=== PATIENT | female | born 1985 | race Hispanic/Latino ===

== ENCOUNTER 2018-09-13 08:58 | Emergency (ER) | payer SELFPAY ==
--- NOTE | 2018-09-13 10:14 | RAD REPORT ---
EXAM DESCRIPTION: RAD - Foot Left 3 View - 09/13/2018 9:59 am CLINICAL HISTORY: Left Foot pain FINDINGS: Two bony densities lie adjacent to navicular consistent with ossicles. A third bony densit y lies medial to the navicular bone. This may represent an additional ossicle. An avulsion fracture i s another consideration. Clinical correlation is needed see the patient has point tenderness in this region to confirm a fracture No dislocation
--- NOTE | 2018-09-13 10:19 | EDPHYS ---
Physician Documentation [facility] Name: Nitin Hess Age: 33 yrs Sex: Female : 1985 Arrival Date: 09/13/2018 Time: 09:03 Bed 17 Private MD: None, None ED Physician Lew Hilton HPI: 09/13 09:40 This 33 yrs old Female presents to ER via Ambulatory with complaints of Ankle kb Injury, Pain. 10:00 The patient presents with pain. The complaints affect the left foot. Context: The kb problem was sustained at home, resulted from a mis-step by the patient, Mechanism of Injury: Inversion the patient can fully bear weight, the patient is able to ambulate. Onset: The symptoms/episode began/occurred 2 week(s) ago. Modifying factors: The symptoms are alleviated by nothing, the symptoms are aggravated by weight bearing. Associated signs and symptoms: The patient has no apparent associated signs or symptoms. Severity of symptoms: At their worst the symptoms were moderate, in the emergency department the symptoms are unchanged. The patient has not experienced similar symptoms in the past. The patient has not recently seen a physician. 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 tw2 Historical: - Allergies: 09:16 No Known Allergies; tw2 - Home Meds: 09:16 None [Active]; tw2 - PMHx: 09:16 None; tw2 - PSHx: 09:16 Left upper arm sx; tw2 - Immunization history:: Adult Immunizations. - Social history:: Smoking status: . - Ebola Screening: : Patient denies travel to an Ebola-affected area in the 21 days before illness onset. ROS: 09:39 Constitutional: Negative for fever, chills, and weight loss, ENT: Negative for injury, kb pain, and discharge, Neck: Negative for injury, pain, and swelling, Cardiovascular: Negative for chest pain, palpitations, and edema, Respiratory: Negative for shortness of breath, cough, wheezing, and pleuritic chest pain, Abdomen/GI: Negative for abdominal pain, nausea, vomiting, diarrhea, and constipation, Skin: Negative for injury, rash, and discoloration, Neuro: Negative for headache, weakness, numbness, tingling, and seizure. 09:39 MS/extremity: Positive for pain. Exam: 09:39 Constitutional: This is a well developed, well nourished patient who is awake, alert, kb and in no acute distress. Head/Face: Normocephalic, atraumatic. Chest/axilla: Normal chest wall appearance and motion. Nontender with no deformity. No lesions are appreciated. Cardiovascular: Regular rate and rhythm with a normal S1 and S2. No gallops, murmurs, or rubs. Normal PMI, no JVD. No pulse deficits. Respiratory: Lungs have equal breath sounds bilaterally, clear to auscultation and percussion. No rales, rhonchi or wheezes noted. No increased work of breathing, no retractions or nasal flaring. Abdomen/GI: Soft, non-tender, with normal bowel sounds. No distension or tympany. No guarding or rebound. No evidence of tenderness throughout. Skin: Warm, dry with normal turgor. Normal color with no rashes, no lesions, and no evidence of cellulitis. Neuro: Awake and alert, GCS 15, oriented to person, place, time, and situation. Cranial nerves II-XII grossly intact. Motor strength 5/5 in all extremities. Sensory grossly intact. Cerebellar exam normal. Normal gait. 09:39 Musculoskeletal/extremity: Extremities: grossly normal except: noted in the left foot: pain, ROM: intact in all extremities, Circulation is intact in all extremities. Sensation intact. Vital Signs: 09:13 BP 127 / 75; Pulse 88; Resp 17; Temp 98.5(TE); Pulse Ox 99% on R/A; Weight 72.57 kg; tw2 Height 5 ft. 5 in. (165.10 cm); Pain 9/10; 09:13 Body Mass Index 26.63 (72.57 kg, 165.10 cm) tw2 MDM: 09:07 Patient medically screened. kb 09:40 Data reviewed: vital signs, nurses notes. Data interpreted: Pulse oximetry: on room air kb is 99 %. Interpretation: normal. 10:01 Counseling: I had a detailed discussion with the patient and/or guardian regarding: the kb historical points, exam findings, and any diagnostic results supporting the discharge/admit diagnosis, radiology results, the need for outpatient follow up, a orthopedic surgeon, to return to the emergency department if symptoms worsen or persist or if there are any questions or concerns that arise at home. 09/13 09:12 Order name: Foot Left 3 View XRAY; Complete Time: 10:17 kb 09/13 10:20 Order name: Crutches; Complete Time: 10:24 kb 09/13 10:20 Order name: Mac Wrap; Complete Time: 10:24 kb Administered Medications: No medications were administered Disposition: 11:41 Co-signature as Attending Physician, Lew Hilton MD. rn Disposition: 09/13/18 10:18 Discharged to Home. Impression: Pain in left foot. - Condition is Stable. - Discharge Instructions: Plantar Fasciitis, Foot Pain. - Prescriptions for Diclofenac Sodium 75 mg Oral Tablet, Delayed Release (E.C.) - take 1 tablet by ORAL route 2 times per day As needed; 30 tablet. - Medication Reconciliation Form, Thank You Letter, Antibiotic Education, Prescription Opioid Use, Work release form, Family Work Release form. - Follow up: Private Physician; When: 2 - 3 days; Reason: Recheck today's complaints, Continuance of care, Re-evaluation by your physician. Follow up: Emergency Department; When: As needed; Reason: Worsening of condition. Signatures: Dispatcher [employer] EDME Lucy Tristan, FUR MIXER OPERATOR-C FUR MIXER OPERATOR-Ckb Lew Hilton MD MD rn Karla Tubbs RN RN tw2 Corrections: (The following items were deleted from the chart) 10:37 10:18 09/13/2018 10:18 Discharged to Home. Impression: Pain in left foot. Condition is tw2 Stable. Forms are Medication Reconciliation Form, Thank You Letter, Antibiotic Education, Prescription Opioid Use. Follow up: Private Physician; When: 2 - 3 days; Reason: Recheck today's complaints, Continuance of care, Re-evaluation by your physician. Follow up: Emergency Department; When: As needed; Reason: Worsening of condition. kb
--- NOTE | 2018-09-13 10:19 | ER ---
Nurse's Notes [facility] Name: Nitin Hess Age: 33 yrs Sex: Female : 1985 Arrival Date: 09/13/2018 Time: 09:03 Bed 17 Private MD: None, None Diagnosis: Pain in left foot Presentation: 09/13 09:12 Presenting complaint: Patient states: about 2 weeks ago i missed a step getting into a tw2 pool and the bottom arch of my LEFT foot hurts. Transition of care: patient was not received from another setting of care. Onset of symptoms was September 13, 2018. Risk Assessment: Do you want to hurt yourself or someone else? Patient reports no desire to harm self or others. Initial Sepsis Screen: Does the patient meet any 2 criteria? No. Patient's initial sepsis screen is negative. Does the patient have a suspected source of infection? No. Patient's initial sepsis screen is negative. Care prior to arrival: None. 09:12 Method Of Arrival: Ambulatory tw2 09:12 Acuity: ANJANA 4 tw2 Triage Assessment: 09:13 General: Appears in no apparent distress. well groomed, Behavior is calm, cooperative, tw2 appropriate for age. Pain: Complains of pain in left foot. Neuro: Level of Consciousness is awake, alert, obeys commands, Oriented to person, place, time, situation. Cardiovascular: Patient's skin is warm and dry. Respiratory: Respiratory effort is even, unlabored, Respiratory pattern is regular, symmetrical. Musculoskeletal: Circulation, motion, and sensation intact. Range of motion: intact in all extremities. 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 tw2 Historical: - Allergies: 09:16 No Known Allergies; tw2 - Home Meds: 09:16 None [Active]; tw2 - PMHx: 09:16 None; tw2 - PSHx: 09:16 Left upper arm sx; tw2 - Immunization history:: Adult Immunizations. - Social history:: Smoking status: . - Ebola Screening: : Patient denies travel to an Ebola-affected area in the 21 days before illness onset. Screenin:17 Abuse screen: Denies threats or abuse. Nutritional screening: No deficits noted. tw2 Tuberculosis screening: No symptoms or risk factors identified. Fall Risk None identified. Assessment: 09:17 Reassessment: see triage assessment. tw2 09:51 Reassessment: xray at bedside at this time. tw2 10:36 Reassessment: Patient appears in no apparent distress at this time. No changes from tw2 previously documented assessment. Patient and/or family updated on plan of care and expected duration. Pain level reassessed. Patient is alert, oriented x 3, equal unlabored respirations, skin warm/dry/pink. Vital Signs: 09:13 BP 127 / 75; Pulse 88; Resp 17; Temp 98.5(TE); Pulse Ox 99% on R/A; Weight 72.57 kg; tw2 Height 5 ft. 5 in. (165.10 cm); Pain 9/10; 09:13 Body Mass Index 26.63 (72.57 kg, 165.10 cm) tw2 ED Course: 09:03 Patient arrived in ED. dp 09:05 None, None is Private Physician. dp 09:07 Lucy Tristan F[facility]-C [facility]. kb 09:07 Lew Hilton MD is Attending Physician. kb 09:09 Bed in low position. Call light in reach. Adult w/ patient. Pulse ox on. NIBP on. tw2 09:12 Karla Tubbs, RN is Primary Nurse. tw2 09:13 Triage completed. tw2 09:13 Arm band placed on. tw2 09:17 No provider procedures requiring assistance completed. Patient did not have IV access tw2 during this emergency room visit. 09:59 Foot Left 3 View XRAY In Process Unspecified. EDMS Administered Medications: No medications were administered Outcome: 10:18 Discharge ordered by . kb 10:36 Discharged to home with crutches, with significant other. tw2 10:36 Discharged to home via wheelchair. 10:36 Condition: stable 10:36 Discharge instructions given to patient, significant other, Instructed on discharge instructions, follow up and referral plans. medication usage, safety practices, Demonstrated understanding of instructions, follow-up care, medications, crutch walking, Prescriptions given X 1. 10:37 Patient left the ED. tw2 Signatures: Dispatcher [employer] EDMS Lucy Tristan FNP-C FNP-Ckb Wise, Tara, RN RN tw2 Koko Dunbar
== END 2018-09-13 10:37 | disposition home or self-care (01) ==
LOC: ER 08:58
DX: M79.672 Pain in left foot (principal); X50.1XXD Overexertion from prolonged static or awkward postures, subsequent encounter; Y93.11 Activity, swimming; Y92.9 Unspecified place or not applicable
CPT/HCPCS: 99284

== ENCOUNTER 2018-11-08 12:10 | Emergency (ER) | payer SELFPAY ==
--- NOTE | 2018-11-08 12:58 | EDPHYS ---
Physician Documentation [facility] Name: Nitin Hess Age: 33 yrs Sex: Female : 1985 Arrival Date: 11/08/2018 Time: 12:11 Bed 19 Private MD: ED Physician Lew Hilton HPI: 11/08 13:11 This 33 yrs old Female presents to ER via Ambulatory with complaints of Wrist snw Pain. 13:11 The patient or guardian reports deformity, pain, tenderness, weakness. The complaints snw affect the left wrist diffusely, right wrist diffusely. Context: resulted from an unknown cause. Onset: The symptoms/episode began/occurred 1 month(s) ago, and became persistent. Associated signs and symptoms: Pertinent positives: numbness distally, tingling distally. The patient has experienced similar episodes in the past. It is unknown whether or not the patient has recently seen a physician. 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 Historical: - Allergies: 12:28 No Known Allergies; hj - PMHx: 12:28 None; hj - PSHx: 12:28 Left upper arm sx; hj ROS: 13:09 Constitutional: Negative for fever, chills, and weight loss, Eyes: Negative for injury, snw pain, redness, and discharge, ENT: Negative for injury, pain, and discharge, Neck: Negative for injury, pain, and swelling, Cardiovascular: Negative for chest pain, palpitations, and edema, Respiratory: Negative for shortness of breath, cough, wheezing, and pleuritic chest pain, Abdomen/GI: Negative for abdominal pain, nausea, vomiting, diarrhea, and constipation, Back: Negative for injury and pain, : Negative for injury, bleeding, discharge, and swelling, Skin: Negative for injury, rash, and discoloration, Neuro: Negative for headache, weakness, numbness, tingling, and seizure. 13:09 MS/extremity: Positive for pain, tenderness, of the bilateral wrists. Exam: 13:07 Constitutional: This is a well developed, well nourished patient who is awake, alert, snw and in no acute distress. Head/Face: Normocephalic, atraumatic. Eyes: Pupils equal round and reactive to light, extra-ocular motions intact. Lids and lashes normal. Conjunctiva and sclera are non-icteric and not injected. Cornea within normal limits. Periorbital areas with no swelling, redness, or edema. ENT: Nares patent. No nasal discharge, no septal abnormalities noted. Tympanic membranes are normal and external auditory canals are clear. Oropharynx with no redness, swelling, or masses, exudates, or evidence of obstruction, uvula midline. Mucous membranes moist. Neck: Trachea midline, no thyromegaly or masses palpated, and no cervical lymphadenopathy. Supple, full range of motion without nuchal rigidity, or vertebral point tenderness. No Meningismus. Chest/axilla: Normal chest wall appearance and motion. Nontender with no deformity. No lesions are appreciated. Cardiovascular: Regular rate and rhythm with a normal S1 and S2. No gallops, murmurs, or rubs. Normal PMI, no JVD. No pulse deficits. Respiratory: Lungs have equal breath sounds bilaterally, clear to auscultation and percussion. No rales, rhonchi or wheezes noted. No increased work of breathing, no retractions or nasal flaring. Abdomen/GI: Soft, non-tender, with normal bowel sounds. No distension or tympany. No guarding or rebound. No evidence of tenderness throughout. Back: No spinal tenderness. No costovertebral tenderness. Full range of motion. Skin: Warm, dry with normal turgor. Normal color with no rashes, no lesions, and no evidence of cellulitis. MS/ Extremity: Pulses equal, no cyanosis. Neurovascular intact. Painful ROM to bilateral wrists, + Phalen's. + mobile cyst to inner lateral wrist Neuro: Awake and alert, GCS 15, oriented to person, place, time, and situation. Cranial nerves II-XII grossly intact. Motor strength 5/5 in all extremities. Sensory grossly intact. Cerebellar exam normal. Normal gait. Vital Signs: 12:28 BP 116 / 59; Pulse 73; Resp 18; Temp 98.2(O); Pulse Ox 96% on R/A; Weight 77.11 kg; hj Height 5 ft. 6 in. (167.64 cm); Pain 10/10; 12:28 Body Mass Index 27.44 (77.11 kg, 167.64 cm) MDM: 12:40 Patient medically screened. snw 13:10 Data reviewed: vital signs, nurses notes. Data interpreted: Pulse oximetry: on room air snw is 96 %. Interpretation: normal. Counseling: I had a detailed discussion with the patient and/or guardian regarding: the historical points, exam findings, and any diagnostic results supporting the discharge/admit diagnosis, the need for outpatient follow up, to return to the emergency department if symptoms worsen or persist or if there are any questions or concerns that arise at home. Special discussion: Based on the history and exam findings, there is no indication for further emergent testing or inpatient evaluation. I discussed with the patient/guardian the need to see the hand specialist for further evaluation of the symptoms. I discussed with the patient/guardian the need to see the primary care provider for further evaluation of the symptoms. 11/08 12:56 Order name: Splint - Wrist: bilateral; Complete Time: 13:08 snw Administered Medications: 13:19 Drug: TORadol 30 mg Route: IM; Site: right deltoid; em 13:22 Follow up: Response: Medication administered at discharge. em Disposition: 15:26 Co-signature as Attending Physician, Lew Hilton MD. rn Disposition: 11/08/18 12:57 Discharged to Home. Impression: Ganglion, left wrist, Carpal tunnel syndrome. - Condition is Stable. - Discharge Instructions: Carpal Tunnel Syndrome, Ganglion Cyst, RICE for Routine Care of Injuries. - Prescriptions for Diclofenac Sodium 75 mg Oral Tablet Sustained Release - take 1 tablet by ORAL route 2 times per day; 30 tablet. - Medication Reconciliation Form, Thank You Letter, Antibiotic Education, Prescription Opioid Use form. - Follow up: Private Physician; When: As needed; Reason: Recheck today's complaints, Continuance of care, Re-evaluation by your physician. Signatures: Fely Nowak, TREE TRIMMER-C TREE TRIMMER-Csnw Andrae Myers, COMMUNITY MARKETING MANAGER COMMUNITY MARKETING MANAGER em Lew Hilton MD MD rn Joaquin, Henry, RN RN Corrections: (The following items were deleted from the chart) 13:22 12:57 11/08/2018 12:57 Discharged to Home. Impression: Ganglion, left wrist; Carpal em tunnel syndrome. Condition is Stable. Forms are Medication Reconciliation Form, Thank You Letter, Antibiotic Education, Prescription Opioid Use. Follow up: Private Physician; When: As needed; Reason: Recheck today's complaints, Continuance of care, Re-evaluation by your physician. snw
--- NOTE | 2018-11-08 12:58 | ER ---
Nurse's Notes [facility] Name: Nitin Hess Age: 33 yrs Sex: Female : 1985 Arrival Date: 11/08/2018 Time: 12:11 Bed 19 Private MD: Diagnosis: Ganglion, left wrist;Carpal tunnel syndrome Presentation: 11/08 12:27 Presenting complaint: Patient states: my L wrist started hurting for a month now, hj denies trauma to the area;. Transition of care: patient was not received from another setting of care. Onset of symptoms was November 08, 2018. Risk Assessment: Do you want to hurt yourself or someone else? Patient reports no desire to harm self or others. Initial Sepsis Screen: Does the patient meet any 2 criteria? No. Patient's initial sepsis screen is negative. Does the patient have a suspected source of infection? No. Patient's initial sepsis screen is negative. Care prior to arrival: None. 12:27 Method Of Arrival: Ambulatory 12:27 Acuity: ANJANA 4 hj Historical: - Allergies: 12:28 No Known Allergies; hj - PMHx: 12:28 None; hj - PSHx: 12:28 Left upper arm sx; hj Screenin:00 Abuse screen: Denies threats or abuse. Nutritional screening: No deficits noted. em Tuberculosis screening: No symptoms or risk factors identified. Fall Risk None identified. Assessment: 13:00 General: Appears in no apparent distress. comfortable, Behavior is calm, cooperative. em Pain: Complains of pain in right wrist and left wrist Pain currently is 10 out of 10 on a pain scale. Neuro: Level of Consciousness is awake, alert, obeys commands, Oriented to person, place, time, situation. Cardiovascular: Capillary refill < 3 seconds Patient's skin is warm and dry. Respiratory: Airway is patent Respiratory effort is even, unlabored, Respiratory pattern is regular, symmetrical. Derm: Skin is intact, is healthy with good turgor, Skin is pink, warm \T\ dry. Musculoskeletal: Range of motion: limited in left wrist and right wrist Swelling absent. Vital Signs: 12:28 BP 116 / 59; Pulse 73; Resp 18; Temp 98.2(O); Pulse Ox 96% on R/A; Weight 77.11 kg; hj Height 5 ft. 6 in. (167.64 cm); Pain 10/10; 12:28 Body Mass Index 27.44 (77.11 kg, 167.64 cm) hj ED Course: 12:11 Patient arrived in ED. as 12:28 Triage completed. hj 12:28 Arm band placed on right wrist. hj 12:31 Fely Nowak [facility]-C [facility]. snw 12:32 Lew Hilton MD is Attending Physician. snw 12:34 Andrae Myers LVN is Primary Nurse. em 13:00 Patient has correct armband on for positive identification. Bed in low position. Call em light in reach. Adult w/ patient. 13:08 Velcro wrist splint applied to bilateral wrist. ms 13:20 No provider procedures requiring assistance completed. Patient did not have IV access em during this emergency room visit. Administered Medications: 13:19 Drug: TORadol 30 mg Route: IM; Site: right deltoid; em 13:22 Follow up: Response: Medication administered at discharge. em Outcome: 12:57 Discharge ordered by . snw 13:22 Discharged to home ambulatory, with family. em 13:22 Condition: good 13:22 Discharge instructions given to patient, Instructed on discharge instructions, follow up and referral plans. medication usage, Demonstrated understanding of instructions, follow-up care, medications, Prescriptions given X 1. 13:22 Patient left the ED. em Signatures: Fely Nowak FNP-C PUBLIC RELATIONS DIRECTOR-Csnw Andrae Myers LVN LVN em Maricel Barney Maria ms Joaquin, Henry RN RN hj Corrections: (The following items were deleted from the chart) 12:30 12:28 Pulse 73bpm; Resp 18bpm; Pulse Ox 96% RA; Temp 98.2F Oral; 77.11 kg; Height 5 ft. hj 6 in.; BMI: 27.4; Pain 10/10; hj
[2018-11-08] MEDS ORDERED: KETOROLAC 30 MG/ML INJ ONE (13:10)
== END 2018-11-08 13:22 | disposition home or self-care (01) ==
LOC: ER 12:10
DX: M67.432 Ganglion, left wrist (principal); M67.431 Ganglion, right wrist; G56.03 Carpal tunnel syndrome, bilateral upper limbs
CPT/HCPCS: 96372; 99283

== ENCOUNTER 2021-11-15 12:00 | Emergency (ER) | payer SELFPAY ==
[2021-11-15 12:35] LABS: Hematocrit 45.8 % (39.6-49.0); Lymphocytes % 20.7 % (15.3-44.8); MCV 82.8 fL (80-100); MPV 7.9 fL (7.6-11.3); RBC Red Blood Cell Count 5.53 M/uL (4.33-5.43)
--- NOTE | 2021-11-15 13:33 | RAD REPORT ---
EXAM DESCRIPTION: RAD - Chest Single View - 11/15/2021 1:19 pm CLINICAL HISTORY: CHEST PAIN COMPARISON: None TECHNIQUE: AP portable chest image was obtained 11/15/2021 1:19 pm . FINDINGS: Lungs are clear. Heart and vasculature are normal. No measurable pleural effusion and no p neumothorax. No acute bony abnormality seen. No acute aortic findings suspected. IMPRESSION: No acute cardiopulmonary process.
[2021-11-15] MEDS ORDERED: FUROSEMIDE 20 MG TABLET ONE (15:04)
[2021-11-15 15:44] LABS: Troponin High Sensitivity 4.7 pg/mL (<58.9)
[2021-11-15 15:45] LABS: Potassium 3.6 mmol/L (3.5-5.1)
--- NOTE | 2021-11-15 15:53 | ER ---
Nurse's Notes [facility] Name: Star Hess Age: 36 yrs Sex: Male : 1985 Arrival Date: 11/15/2021 Time: 12:03 Bed 10 Private MD: Diagnosis: Edema, unspecified;Elevated blood-pressure reading, without diagnosis of hypertension Presentation: 11/15 12:15 Chief complaint: Patient states: JENNIFER lower leg swelling X 4 days. Coronavirus screen: ld1 At this time, the client does not indicate any symptoms associated with coronavirus-19. Ebola Screen: No symptoms or risks identified at this time. Initial Sepsis Screen: Does the patient meet any 2 criteria? No. Patient's initial sepsis screen is negative. Does the patient have a suspected source of infection? No. Patient's initial sepsis screen is negative. Risk Assessment: Do you want to hurt yourself or someone else? Patient reports no desire to harm self or others. Onset of symptoms was November 15, 2021. 12:15 Method Of Arrival: Ambulatory ld1 12:15 Acuity: ANJANA 3 ld1 Triage Assessment: 12:17 General: Appears in no apparent distress. comfortable, Behavior is calm, cooperative, ld1 appropriate for age. Pain: Denies pain. EENT: No signs and/or symptoms were reported regarding the EENT system. Neuro: Level of Consciousness is awake, alert, obeys commands, Oriented to person, place, time, situation. Cardiovascular: Respiratory: Airway is patent Respiratory effort is even, unlabored. GI: Abdomen is flat, non-distended. : No signs and/or symptoms were reported regarding the genitourinary system. Derm: No signs and/or symptoms reported regarding the dermatologic system. Musculoskeletal: Swelling present in right leg and left leg. Historical: - Allergies: 12:17 No Known Allergies; ld1 - Home Meds: 12:17 Adipex-P 37.5 mg oral cap 1 cap once daily [Active]; ld1 - PMHx: 12:17 None; ld1 - PSHx: 12:17 None; ld1 - Immunization history:: Adult Immunizations up to date, Client reports receiving the 1st dose of the Covid vaccine. - Social history:: Smoking status: Reported history of juuling and/or vaping. Patient/guardian denies using alcohol. Screenin:14 Abuse screen: Denies threats or abuse. Denies injuries from another. Nutritional iw screening: No deficits noted. Tuberculosis screening: No symptoms or risk factors identified. Fall Risk None identified. Assessment: 12:31 Reassessment: EKG, IV, Labs completed in triage. ld1 Vital Signs: 12:15 BP 129 / 90; Pulse 91; Resp 18; Temp 97.4(TE); Pulse Ox 100% on R/A; Weight 88.45 kg; ld1 Height 5 ft. 6 in. (167.64 cm); Pain 0/10; 12:15 Body Mass Index 31.47 (88.45 kg, 167.64 cm) ld1 ED Course: 12:03 Patient arrived in ED. rg4 12:17 Triage completed. ld1 12:17 Arm band placed on right wrist. ld1 12:28 Inserted saline lock: 20 gauge in right antecubital area, using aseptic technique. ld1 Blood collected. 12:35 Patient has correct armband on for positive identification. iw 12:55 F[facility]-C [facility]. snw 12:55 Michael Jim MD is Attending Physician. snw 13:21 XRAY Chest (1 view) In Process Unspecified. EDMS 13:52 Chasity Orozco, RN is Primary Nurse. iw 14:40 Lab(s) recollected, by me, sent to lab. jw7 15:15 Basic Metabolic Panel Sent. kc6 15:15 Troponin HS Sent. kc6 16:14 No provider procedures requiring assistance completed. IV discontinued, intact, iw bleeding controlled, No redness/swelling at site. Pressure dressing applied. Administered Medications: 15:05 Drug: LaSIX (furosemide) 20 mg Route: PO; iw 15:50 Follow up: Response: No adverse reaction iw Medication: 16:00 VIS not applicable for this client. iw Outcome: 15:52 Discharge ordered by . snw 16:14 Discharged to home ambulatory. iw 16:14 Condition: good 16:14 Discharge instructions given to patient, family, Instructed on discharge instructions, follow up and referral plans. Demonstrated understanding of instructions, follow-up care. 16:15 Patient left the ED. iw Signatures: Dispatcher [employer] EDMS Fely Joshi FNP-C COMPUTER TRAINING SPECIALIST-CsnChasity Gross, RN RN Tiarra Lunsford rg4 Yolanda Curran RN RN ld1 Katie Burrows jw7 Sangeetha Guerrero kc6 Corrections: (The following items were deleted from the chart) 12:27 12:15 Pulse 91bpm; Resp 18bpm; Pulse Ox 100% RA; Temp 97.4F Temporal; 88.45 kg; Height ld1 5 ft. 6 in.; BMI: 31.4; Pain 0/10; ld1
--- NOTE | 2021-11-15 15:53 | EDPHYS ---
Physician Documentation [facility] Name: Star Hess Age: 36 yrs Sex: Male : 1985 Arrival Date: 11/15/2021 Time: 12:03 Bed 10 Private MD: ED Physician Michael Jim HPI: 11/15 14:24 This 36 yrs old Male presents to ER via Ambulatory with complaints of Leg snw Swelling. 14:24 bilateral lower ext edema, no loss of sensation. Onset: The symptoms/episode snw began/occurred gradually, 4 day(s) ago, and became persistent. Severity of symptoms: At their worst the symptoms were moderate this morning. The patient has not experienced similar symptoms in the past. The patient has not recently seen a physician. Pt's pronouns she/her. No hormone therapy per pt. Historical: - Allergies: 12:17 No Known Allergies; ld1 - Home Meds: 12:17 Adipex-P 37.5 mg oral cap 1 cap once daily [Active]; ld1 - PMHx: 12:17 None; ld1 - PSHx: 12:17 None; ld1 - Immunization history:: Adult Immunizations up to date, Client reports receiving the 1st dose of the Covid vaccine. - Social history:: Smoking status: Reported history of juuling and/or vaping. Patient/guardian denies using alcohol. ROS: 14:25 Constitutional: Negative for fever, chills, and weight loss, Eyes: Negative for injury, snw pain, redness, and discharge, ENT: Negative for injury, pain, and discharge, Neck: Negative for injury, pain, and swelling, Cardiovascular: Negative for chest pain, palpitations, and edema, Respiratory: Negative for shortness of breath, cough, wheezing, and pleuritic chest pain, Abdomen/GI: Negative for abdominal pain, nausea, vomiting, diarrhea, and constipation, Back: Negative for injury and pain, : Negative for injury, bleeding, discharge, and swelling, Skin: Negative for injury, rash, and discoloration, Neuro: Negative for headache, weakness, numbness, tingling, and seizure, Psych: Negative for depression, anxiety, suicide ideation, homicidal ideation, and hallucinations. 14:25 MS/extremity: Positive for edema to lower extremities. Exam: 14:26 Constitutional: This is a well developed, well nourished patient who is awake, alert, snw and in no acute distress. Head/Face: Normocephalic, atraumatic. Eyes: Pupils equal round and reactive to light, extra-ocular motions intact. Lids and lashes normal. Conjunctiva and sclera are non-icteric and not injected. Cornea within normal limits. Periorbital areas with no swelling, redness, or edema. ENT: Nares patent. No nasal discharge, no septal abnormalities noted. Tympanic membranes are normal and external auditory canals are clear. Oropharynx with no redness, swelling, or masses, exudates, or evidence of obstruction, uvula midline. Mucous membranes moist. Neck: Trachea midline, no thyromegaly or masses palpated, and no cervical lymphadenopathy. Supple, full range of motion without nuchal rigidity, or vertebral point tenderness. No Meningismus. Chest/axilla: Normal chest wall appearance and motion. Nontender with no deformity. No lesions are appreciated. Cardiovascular: Regular rate and rhythm with a normal S1 and S2. No gallops, murmurs, or rubs. Normal PMI, no JVD. No pulse deficits. Respiratory: Lungs have equal breath sounds bilaterally, clear to auscultation and percussion. No rales, rhonchi or wheezes noted. No increased work of breathing, no retractions or nasal flaring. Abdomen/GI: Soft, non-tender, with normal bowel sounds. No distension or tympany. No guarding or rebound. No evidence of tenderness throughout. Back: No spinal tenderness. No costovertebral tenderness. Full range of motion. Skin: Warm, dry with normal turgor. Normal color with no rashes, no lesions, and no evidence of cellulitis. Neuro: Awake and alert, GCS 15, oriented to person, place, time, and situation. Cranial nerves II-XII grossly intact. Motor strength 5/5 in all extremities. Sensory grossly intact. Cerebellar exam normal. Normal gait. Psych: Awake, alert, with orientation to person, place and time. Behavior, mood, and affect are within normal limits. 14:26 Musculoskeletal/extremity: Extremities: grossly normal except: noted in the bilateral lower extremities: swelling. 14:28 ECG was reviewed by the Attending Physician. snw Vital Signs: 12:15 BP 129 / 90; Pulse 91; Resp 18; Temp 97.4(TE); Pulse Ox 100% on R/A; Weight 88.45 kg; ld1 Height 5 ft. 6 in. (167.64 cm); Pain 0/10; 12:15 Body Mass Index 31.47 (88.45 kg, 167.64 cm) ld1 MDM: 13:54 Patient medically screened. snw 14:27 Data reviewed: vital signs, nurses notes. Data interpreted: Pulse oximetry: is not snw applicable for this patient encounter. on room air is 100 %. Interpretation: normal. Counseling: I had a detailed discussion with the patient and/or guardian regarding: the historical points, exam findings, and any diagnostic results supporting the discharge/admit diagnosis, the presence of at least one elevated blood pressure reading (>120/80) during this emergency department visit, the need for outpatient follow up, to return to the emergency department if symptoms worsen or persist or if there are any questions or concerns that arise at home. Special discussion: I have referred the patient to see his PCP for further evaluation of high blood pressure. Based on the history and exam findings, there is no indication for further emergent testing or inpatient evaluation. I discussed with the patient/guardian the need to see the primary care provider for further evaluation of the symptoms. ED course: repeat bp, 118/83. 11/15 12:20 Order name: Basic Metabolic Panel; Complete Time: 15:51 11/15 12:20 Order name: CBC with Diff; Complete Time: 12:58 11/15 12:20 Order name: Troponin HS; Complete Time: 15:51 11/15 12:20 Order name: XRAY Chest (1 view); Complete Time: 13:35 11/15 12:20 Order name: EKG; Complete Time: 12:23 11/15 12:20 Order name: Cardiac monitoring; Complete Time: 15:49 11/15 12:20 Order name: EKG - Nurse/Tech; Complete Time: 12:31 11/15 12:20 Order name: IV Saline Lock; Complete Time: 12:28 11/15 12:20 Order name: Labs collected and sent; Complete Time: 12:28 11/15 12:20 Order name: O2 Per Protocol; Complete Time: 12:31 11/15 12:20 Order name: O2 Sat Monitoring; Complete Time: 15:49 ld1 11/15 12:42 Order name: Labs - recollect needed: recollect green top please; Complete Time: 14:41 bd 11/15 14:58 Order name: Labs - recollect needed: recollect green top again please; Complete Time: bd 15:05 EC:28 Rate is 72 beats/min. Rhythm is regular. QRS [place] is Normal. TN interval is normal. QRS snw interval is normal. QT interval is normal. No Q waves. T waves are Normal. No ST changes noted. Clinical impression: Normal ECG. Administered Medications: 15:05 Drug: LaSIX (furosemide) 20 mg Route: PO; iw 15:50 Follow up: Response: No adverse reaction iw Disposition Summary: 11/15/21 15:52 Discharge Ordered Location: Home snw Condition: Stable snw Diagnosis - Edema, unspecified snw - Elevated blood-pressure reading, without diagnosis of hypertension snw Followup: snw - With: Private Physician - When: 2 - 3 days - Reason: Recheck today's complaints, Continuance of care, Re-evaluation by your physician Followup: snw - With: Emergency Department - When: As needed - Reason: Worsening of condition Discharge Instructions: - Discharge Summary Sheet snw - Edema snw - Hypertension, Adult snw - Heart Disease Prevention snw - How to Take Your Blood Pressure, [id number] snw - DASH Eating Plan snw - Form - Blood Pressure Record Sheet snw Forms: - Medication Reconciliation Form snw - Thank You Letter snw - Antibiotic Education snw - Prescription Opioid Use snw - Work release form Signatures: Dispatcher [employer] EDNarcisa Sierra Shelly, FNP-C UTILIZATION REVIEW RN-Csnw Chasity Orozco, RN RN iw Yolanda Curran RN RN ld1
[2021-11-15 16:56] VITALS: BP 129/90; TEMP 97.4; O2SAT 100
--- NOTE | 2021-11-16 14:33 | EKG ---
Test Date: 2021-11-15 Test Time: 12:32:46 Orthotist Prosthetist: BRANDIE MEASUREMENT RESULTS: Intervals: Rate: 72 OK: 134 QRSD: 76 QT: 366 QTc: 400 Broad [place]: P: 31 OK: 134 QRS: 8 T: 31 INTERPRETIVE STATEMENTS: Normal sinus rhythm Normal ECG No previous ECG available for comparison Electronically Signed On 11-16-21 14:31:44 CDT by Stanton Morfin
== END 2021-11-15 16:15 | disposition home or self-care (01) ==
LOC: ER 12:00 → EDSEX 12:00 → ER 16:15
DX: R60.9 Edema, unspecified (principal); R03.0 Elevated blood-pressure reading, without diagnosis of hypertension
CPT/HCPCS: 36415; 71045; 80048; 84484; 85025; 93005; 99284

== ENCOUNTER 2022-01-04 19:32 | Emergency (ER) | payer SELFPAY ==
[2022-01-04] MEDS ORDERED: ONDANSETRON 4 MG/2 ML VIAL ONE (20:28)
[2022-01-04] MEDS ORDERED: FAMOTIDINE 20 MG/2 ML VIAL IV ONE (20:29)
[2022-01-04 20:35] LABS: Absolute Lymphocytes (CBC) 1.8 K/uL (0.7-4.9); Hematocrit 45.7 % (39.6-49.0); Lymphocytes % 19.5 % (15.3-44.8); MCV 84.7 fL (80-100); MPV 8.1 fL (7.6-11.3); RBC Red Blood Cell Count 5.39 M/uL (4.33-5.43)
[2022-01-04] MEDS ORDERED: NA CHLORIDE 0.9% 1,000 ML ONE (20:38)
[2022-01-04] MEDS ORDERED: DICYCLOMINE HCL 20 MG/2 ML AMP IM ONE (20:38)
[2022-01-04 20:50] LABS: Albumin 3.6 g/dL (3.4-5.0); Bilirubin Total 0.4 mg/dL (0.2-1.0); Potassium 3.6 mmol/L (3.5-5.1)
[2022-01-04 21:34] LABS: Urine Blood Negative (Negative); Urine Glucose Negative (Negative); Urine Protein Negative (Negative); Urine Specific Gravity 1.025 (1.005-1.030); Urine pH 5.5 (5.0-7.0)
--- NOTE | 2022-01-04 21:43 | RAD REPORT ---
EXAM DESCRIPTION: CT - Abdomen Pelvis W Contrast - 01/04/2022 9:09 pm CLINICAL HISTORY: abdominal pain COMPARISON: No comparisonsNo comparisons TECHNIQUE: Biphasic, helical CT imaging of the abdomen and pelvis was performed following 100 ml non -ionic IV contrast. Oral contrast was given. All CT scans are performed using dose optimization technique as appropriate and may include automated exposure control or mA/KV adjustment according to patient size. FINDINGS: No suspicious findings in the lung bases. The liver, spleen, and pancreas show no suspicious findings. Cholecystectomy clips are present. No bi liary tree dilatation. Symmetric renal function is seen with no hydronephrosis or suspicious renal mass. No pyelonephritis o r acute parenchymal process. No bladder abnormalities. No adrenal abnormalities. Both testicles are positioned within the inguinal canals. Pronounced cremasteric reflex is possible b ut would need correlation. No stomach or small bowel abnormality. Appendix is normal. Terminal ileum is normal. There is thicken ed nodular colon wall and mucosa from cecum through the ascending colon. There does appear to be a fa tty ileocecal valve and a normal position. Intussusception of small bowel into the colon is not confi rmed. There is a minimal amount of hyperdense material within the bowel lumen believed to be ingested medication. Remainder of the colon is unremarkable. No free air, pneumatosis or free fluid. Trace amount of stranding is seen adjacent to the right-amor e colon. No mass or bulky lymphadenopathy. No suspicious bony findings. IMPRESSION: Circumferential wall thickening and mucosal nodularity in the cecum and ascending colon. Correlation is needed with any history of colitis or infectious/ inflammatory bowel history. Ileocecal valve appears to be normally positioned. Small bowel intussusception into the colon is not confirmed. The appendix is normal. Bilateral inguinal positioning of the testicles. This is concerning for bilateral undescended testicl es rather than prominent cremasteric reflex.
[2022-01-04 21:52] LABS: Urine Mucus 2+ /HPF (None Seen); Urine RBC <5 /HPF (None Seen)
[2022-01-04 21:57] LABS: Barbiturates NEGATIVE (NEGATIVE); Benzodiazepines NEGATIVE (NEGATIVE); Cocaine NEGATIVE (NEGATIVE); METHAMPHETAM POSITIVE (NEGATIVE); Methadone NEGATIVE (NEGATIVE); Opiates NEGATIVE (NEGATIVE); Phencyclidine NEGATIVE (NEGATIVE); THC Cannibis NEGATIVE (NEGATIVE)
--- NOTE | 2022-01-04 22:31 | EDPHYS ---
Physician Documentation [facility] Name: Star Hess Age: 36 yrs Sex: Male : 1985 Arrival Date: 01/04/2022 Time: 19:35 Bed 20 Private MD: ED Physician Lew Hilton HPI: 01/04 20:05 This 36 yrs old Male presents to ER via Ambulatory with complaints of cp Abdominal Pain, Diarrhea. 20:05 The patient presents with abdominal pain. cp 20:05 Onset: The symptoms/episode began/occurred 2 day(s) ago. The symptoms do not radiate. cp Associated signs and symptoms: Pertinent positives: diarrhea, nausea, Pertinent negatives: blood in stools, chest pain, constipation, dysuria, fever, testicular pain, vomiting. The symptoms are described as crampy. Severity of pain: in the emergency department the pain is unchanged despite home interventions. Historical: - Allergies: 19:39 No Known Allergies; [facility] - Home Meds: 19:39 Adipex-P 37.5 mg Oral cap 1 cap once daily [Active]; [facility] - PSHx: 19:40 gallbladder removal 2013; [facility] - Immunization history:: Adult Immunizations up to date. - Social history:: Smoking status: Reported history of juuling and/or vaping. ROS: 20:10 Constitutional: Negative for body aches, chills, fever, poor PO intake. cp 20:10 Eyes: Negative for injury, pain, redness, and discharge. cp 20:10 Cardiovascular: Negative for chest pain, edema, palpitations. cp 20:10 ENT: Negative for drainage from ear(s), ear pain, sore throat, difficulty swallowing, cp difficulty handling secretions. 20:10 Respiratory: Negative for cough, shortness of breath, wheezing. 20:10 Abdomen/GI: Positive for abdominal pain, nausea, diarrhea, abdominal cramps, Negative for vomiting, constipation, anorexia, black/tarry stool, rectal bleeding. 20:10 Back: Negative for pain at rest, pain with movement. 20:10 : Negative for urinary symptoms. 20:10 Neuro: Negative for altered mental status, dizziness, headache, syncope, weakness. 20:10 All other systems are negative. Exam: 20:15 Constitutional: The patient appears in no acute distress, alert, awake, cp non-diaphoretic, non-toxic, well developed, well nourished, uncomfortable. 20:15 Head/Face: Normocephalic, atraumatic. cp 20:15 Eyes: Periorbital structures: appear normal, Conjunctiva: normal, no exudate, no injection, Sclera: no appreciated abnormality, Lids and lashes: appear normal, bilaterally. 20:15 ENT: External ear(s): are unremarkable, Nose: is normal, Mouth: Lips: moist, Oral mucosa: pink and intact, moist, Posterior pharynx: Airway: no evidence of obstruction, patent. 20:15 Chest/axilla: Inspection: normal. 20:15 Cardiovascular: Rate: tachycardic, Rhythm: regular, Edema: is not appreciated, JVD: is not appreciated. 20:15 Respiratory: the patient does not display signs of respiratory distress, Respirations: normal, no use of accessory muscles, no retractions, labored breathing, is not present, Breath sounds: are clear throughout, no decreased breath sounds, no stridor, no wheezing. 20:15 Abdomen/GI: Inspection: abdomen appears normal, Bowel sounds: active, all quadrants, Palpation: soft, in all quadrants, mild abdominal tenderness, in the left upper quadrant, right lower quadrant and left lower quadrant, rebound tenderness, is not appreciated, involuntary guarding, is not appreciated. 20:15 Back: pain, is absent, ROM is normal. 20:15 Neuro: Orientation: to person, place \T\ time. Mentation: is normal, Motor: moves all fours, strength is normal, Sensation: is normal. Vital Signs: 19:37 BP 125 / 86; Pulse 108; Resp 16; Temp 98.6; Pulse Ox 100% ; Weight 92.08 kg; Height 5 jh5 ft. 6 in. (167.64 cm); Pain 10/10; 21:15 BP 114 / 83; Pulse 95; Resp 18; Pulse Ox 100% ; kd3 22:28 BP 108 / 73; Pulse 84; Resp 17; Pulse Ox 99% on R/A; kd3 19:37 Body Mass Index 32.76 (92.08 kg, 167.64 cm) 5 MDM: 19:44 Patient medically screened. cp 21:00 Differential diagnosis: appendicitis, bowel obstruction, gastritis, non-specific abd cp pain, pancreatitis, Pyelonephritis, Testicular Torsion, urinary tract infection, colitis. 22:30 Data reviewed: vital signs, nurses notes, lab test result(s), radiologic studies, CT cp scan. 22:30 Counseling: I had a detailed discussion with the patient and/or guardian regarding: the cp historical points, exam findings, and any diagnostic results supporting the discharge/admit diagnosis, lab results, radiology results. Response to treatment: the patient's symptoms have markedly improved after treatment. Special discussion: Based on the patient's Hx, exam, and Dx evaluation, there is no indication for emergent surgery or inpatient Tx. It is understood by the patient/guardian that if the Sx's persist or worsen they need to return immediately for re-evaluation. 22:30 ED course: Patient denies any testicular pain. 01/04 19:59 Order name: CBC with Diff; Complete Time: 22:16 01/04 19:59 Order name: CMP; Complete Time: 22:16 01/04 22:16 Interpretation: GLOB 4.4; A/G 0.8; Reviewed. 01/04 19:59 Order name: Lipase; Complete Time: 22:16 01/04 19:59 Order name: Urine Microscopic Only; Complete Time: 22:16 cp 01/04 20:32 Order name: UDS; Complete Time: 22:16 01/04 22:16 Interpretation: Normal except: METHAMPHETAMINE POSITIVE. 01/04 20:32 Order name: Magnesium; Complete Time: 22:16 01/04 20:30 Order name: CT Abd/Pelvis - IV Contrast Only; Complete Time: 22:16 01/04 21:34 Order name: Urine Dipstick-Ancillary; Complete Time: 22:16 EDMS 01/04 19:59 Order name: IV Saline Lock; Complete Time: 20:27 01/04 19:59 Order name: Labs collected and sent; Complete Time: 20:27 01/04 19:59 Order name: Urine Dipstick-Ancillary (obtain specimen); Complete Time: 21:35 cp Administered Medications: 20:32 Drug: Pepcid (famotidine) 20 mg Route: IVP; Site: right antecubital; kd3 22:41 Follow up: Response: No adverse reaction kd3 20:33 Drug: Zofran (Ondansetron) 4 mg Route: IVP; Site: right antecubital; kd3 22:41 Follow up: Response: No adverse reaction kd3 20:48 Drug: Dicyclomine 20 mg Route: IM; Site: right vastus lateralis; kd3 22:41 Follow up: Response: No adverse reaction kd3 20:48 Drug: NS 0.9% 1000 ml Route: IV; Rate: 1 bolus; Site: right antecubital; kd3 22:41 Follow up: IV Status: Completed infusion; IV Intake: 1000ml kd3 22:41 Drug: Cipro (ciprofloxacin) 500 mg Route: PO; kd3 22:41 Follow up: Response: No adverse reaction kd3 22:41 Drug: metroNIDAZOLE 500 mg Route: PO; kd3 22:41 Follow up: Response: No adverse reaction kd3 Disposition: 01/05 00:01 Co-signature as Attending Physician, Lew Hilton MD. rn Disposition Summary: 01/04/22 22:30 Discharge Ordered Location: Home cp Problem: new cp Symptoms: have improved cp Condition: Stable cp Diagnosis - Left sided colitis without complications cp - Diarrhea, unspecified cp Followup: cp - With: Yeyo Cade MD - When: 2 - 3 days - Reason: Recheck today's complaints Discharge Instructions: - Discharge Summary Sheet cp - Diarrhea, Adult cp - Colitis cp Forms: - Medication Reconciliation Form cp - Thank You Letter cp - Antibiotic Education cp - Prescription Opioid Use cp Prescriptions: - Zofran 4 mg Oral Tablet - take 1 tablet by ORAL route every 12 hours As needed; 20 tablet; Refills: 0, cp Product Selection Permitted - Cipro 500 mg Oral Tablet - take 1 tablet by ORAL route every 12 hours for 10 days; 20 tablet; Refills: 0, cp Product Selection Permitted - Metronidazole 500 mg Oral Tablet - take 1 tablet by ORAL route every 8 hours; 30 tablet; Refills: 0, Product cp Selection Permitted - dicyclomine 20 mg Oral Tablet - take 1 tablet by ORAL route 4 times per day; 30 tablet; Refills: 0, Product cp Selection Permitted Signatures: Dispatcher [employer] EDLew Montes MD MD rn Page, Corey, PA PA cp Rees, Jessica RN RN jh5 Chiquita Jean RN RN kd3 Corrections: (The following items were deleted from the chart) 01/04 20:29 19:05 This 36 yrs old Male presents to ER via Ambulatory with complaints of cp Abdominal Pain, Diarrhea. cp 22:16 22:16 Reviewed. cp cp
--- NOTE | 2022-01-04 22:31 | ER ---
Nurse's Notes [facility] Name: Star Hess Age: 36 yrs Sex: Male : 1985 Arrival Date: 01/04/2022 Time: 19:35 Bed 20 Private MD: Diagnosis: Left sided colitis without complications;Diarrhea, unspecified Presentation: 01/04 19:37 Chief complaint: Patient states: abdominal pain x2 days after eating waterburger. [facility] Coronavirus screen: Vaccine status: Patient reports receiving the 2nd dose of the covid vaccine. Client denies travel out of the [place] in the last 14 days. Ebola Screen: Patient negative for fever greater than or equal to 101.5 degrees Fahrenheit, and additional compatible Ebola Virus Disease symptoms Patient denies exposure to infectious person. Patient denies travel to an Ebola-affected area in the 21 days before illness onset. Initial Sepsis Screen: Does the patient meet any 2 criteria? No. Patient's initial sepsis screen is negative. Does the patient have a suspected source of infection? No. Patient's initial sepsis screen is negative. Risk Assessment: Do you want to hurt yourself or someone else? Patient reports no desire to harm self or others. Onset of symptoms was January 02, 2022. 19:37 Method Of Arrival: Ambulatory [facility] 19:37 Acuity: ANJANA 3 [facility] Triage Assessment: 19:39 General: Appears in no apparent distress. comfortable, obese, well groomed, well [facility] developed, Behavior is calm, cooperative, appropriate for age. Pain: Complains of pain in abdomen. GI: Reports upper abdominal pain. Historical: - Allergies: 19:39 No Known Allergies; [facility] - Home Meds: 19:39 Adipex-P 37.5 mg Oral cap 1 cap once daily [Active]; [facility] - PSHx: 19:40 gallbladder removal 2013; [facility] - Immunization history:: Adult Immunizations up to date. - Social history:: Smoking status: Reported history of juuling and/or vaping. Screenin:14 Abuse screen: Denies threats or abuse. Denies injuries from another. Nutritional kd3 screening: No deficits noted. Tuberculosis screening: No symptoms or risk factors identified. Fall Risk IV access (20 points). Assessment: 21:14 General: Appears in no apparent distress. Behavior is calm, cooperative. Pain: kd3 Complains of pain in abdomen. Neuro: Level of Consciousness is awake, alert, obeys commands, Oriented to person, place, time, situation. Cardiovascular: Patient's skin is warm and dry. Respiratory: Airway is patent Trachea midline Respiratory effort is even, unlabored, Respiratory pattern is regular, symmetrical. GI: Stools are reported to be loose, Bowel sounds present X 4 quads. Abd is soft X 4 quads Reports diarrhea. 22:27 General: Page at bedside to discuss D/C and follow up, . kd3 Vital Signs: 19:37 BP 125 / 86; Pulse 108; Resp 16; Temp 98.6; Pulse Ox 100% ; Weight 92.08 kg; Height 5 [facility] ft. 6 in. (167.64 cm); Pain 10/10; 21:15 BP 114 / 83; Pulse 95; Resp 18; Pulse Ox 100% ; kd3 22:28 BP 108 / 73; Pulse 84; Resp 17; Pulse Ox 99% on R/A; kd3 19:37 Body Mass Index 32.76 (92.08 kg, 167.64 cm) [facility] ED Course: 19:35 Patient arrived in ED. ja2 19:36 Michael Vaz PA is PHCP. cp 19:36 Lew Hilton MD is Attending Physician. cp 19:39 Triage completed. [facility] 19:39 Arm band placed on right wrist. 5 19:45 Chiquita Jean, BRISEYDA is Primary Nurse. kd3 20:27 CBC with Diff Sent. kd3 20:27 CMP Sent. kd3 20:27 Lipase Sent. kd3 21:11 CT Abd/Pelvis - IV Contrast Only In Process Unspecified. EDMS 21:14 Patient has correct armband on for positive identification. kd3 21:14 No provider procedures requiring assistance completed. Inserted saline lock: 20 gauge kd3 in right antecubital area, using aseptic technique. Blood collected. 21:35 UDS Sent. kd3 21:35 Urine Microscopic Only Sent. kd3 22:30 Yeyo Cade MD is Referral Physician. cp 22:43 IV discontinued, intact, bleeding controlled, No redness/swelling at site. Pressure kd3 dressing applied. Administered Medications: 20:32 Drug: Pepcid (famotidine) 20 mg Route: IVP; Site: right antecubital; kd3 22:41 Follow up: Response: No adverse reaction kd3 20:33 Drug: Zofran (Ondansetron) 4 mg Route: IVP; Site: right antecubital; kd3 22:41 Follow up: Response: No adverse reaction kd3 20:48 Drug: Dicyclomine 20 mg Route: IM; Site: right vastus lateralis; kd3 22:41 Follow up: Response: No adverse reaction kd3 20:48 Drug: NS 0.9% 1000 ml Route: IV; Rate: 1 bolus; Site: right antecubital; kd3 22:41 Follow up: IV Status: Completed infusion; IV Intake: 1000ml kd3 22:41 Drug: Cipro (ciprofloxacin) 500 mg Route: PO; kd3 22:41 Follow up: Response: No adverse reaction kd3 22:41 Drug: metroNIDAZOLE 500 mg Route: PO; kd3 22:41 Follow up: Response: No adverse reaction kd3 Medication: 21:15 VIS not applicable for this client. kd3 Intake: 22:41 IV: 1000ml; Total: 1000ml. kd3 Outcome: 22:28 Discharged to home ambulatory, with family. kd3 22:28 Condition: stable 22:28 Discharge instructions given to patient, family, Instructed on discharge instructions, follow up and referral plans. Demonstrated understanding of instructions, follow-up care. 22:30 Discharge ordered by . major 22:42 Patient left the ED. kd3 Signatures: Dispatcher [employer] EDMS Michael Vaz PA PA cp Alexander, Jessica ja2 Antonette Banegas RN RN jh5 Chiquita Jean RN RN kd3
[2022-01-04] MEDS ORDERED: CIPROFLOXACIN HCL 500 MG TAB ONE (22:32)
[2022-01-04] MEDS ORDERED: metroNIDAZOLE 500 MG TABLET ONE (22:32)
[2022-01-05 21:57] VITALS: TEMP 98.6
[2022-01-05 22:00] VITALS: BP 108/73; O2SAT 99
== END 2022-01-04 22:42 | disposition home or self-care (01) ==
LOC: ER 19:32
DX: K51.50 Left sided colitis without complications (principal); R19.7 Diarrhea, unspecified
CPT/HCPCS: 36415; 74177; 80053; 80307; 81003; 81015; 83690; 83735; 85025; 96361; 96372; 96374; 96375; 99284; J0500; J2405; J7030; Q9967

== ENCOUNTER 2023-01-31 08:52 | Inpatient (IN) | payer SELFPAY ==
[2023-01-31 09:50] LABS: Absolute Lymphocytes (CBC) 1.7 K/uL (0.7-4.9); Hematocrit 43.6 % (39.6-49.0); Lymphocytes % 15.3 % (15.3-44.8); MCV 84.4 fL (80-100); MPV 8.2 fL (7.6-11.3); Platelets 147 thou/uL (152-406); RBC Red Blood Cell Count 5.17 M/uL (4.33-5.43)
[2023-01-31] MEDS ORDERED: NA CHLORIDE 0.9% 3,000 ML ONE (09:58)
[2023-01-31 10:01] LABS: Protime INR 1.13
[2023-01-31] MEDS ORDERED: PIPERACIL/TAZO 3.375 GM VIAL IV ONE (10:02)
[2023-01-31] MEDS ORDERED: HYDROMORPHONE HCL 1 MG/ML INJ ONE (10:02)
[2023-01-31] MEDS ORDERED: NA CHLORIDE 0.9% 100 ML ONE (10:02)
[2023-01-31 10:15] LABS: Albumin 3.8 g/dL (3.4-5.0); Bilirubin Total 0.7 mg/dL (0.2-1.0); Potassium 3.6 mEq/L (3.5-5.1)
--- NOTE | 2023-01-31 11:47 | RAD REPORT ---
EXAM DESCRIPTION: CT - Pelvis W/Cont - 01/31/2023 11:11 am CLINICAL HISTORY: abscess to base of scrotum Pain and swelling COMPARISON: No comparisons TECHNIQUE: All CT scans are performed using dose optimization technique as appropriate and may inclu de automated exposure control or mA/KV adjustment according to patient size. FINDINGS: There is mild skin thickening and subcutaneous induration seen along the left aspect of th e anterior scrotal region. There is inflammatory changes also at the inferior scrotal location. Well-formed fluid collection to indicate abscess not seen. Perirectal abscess not seen. Mild lymphade nopathy is seen in both inguinal regions. Small bilateral fat containing inguinal hernia. IMPRESSION: No definitive abscess seen. Moderate inflammatory changes in the fat along the base of t he scrotal sac.
--- NOTE | 2023-01-31 11:57 | EDPHYS ---
Physician Documentation [facility] Name: Star Hess Age: 37 yrs Sex: Male : 1985 Arrival Date: 01/31/2023 Time: 08:52 Bed 15 Private MD: ED Physician Michael Jim HPI: 01/31 10:02 This 37 yrs old Male presents to ER via Ambulatory with complaints of Abscess. snw 10:02 The patient presents with an abscess of the base of scrotum and left thigh. The patient snw has not experienced similar symptoms in the past. Historical: - Allergies: 09:11 No Known Allergies; ll1 - PMHx: 09:11 None; ll1 - PSHx: 09:07 gallbladder removal 2013; ll1 09:11 L arm SX; ll1 - Immunization history:: Adult Immunizations up to date. - Social history:: Smoking status: Patient denies any tobacco usage or history of. ROS: 10:01 Constitutional: Negative for weight loss, positive for fever, chills Eyes: Negative for snw injury, pain, redness, and discharge, ENT: Negative for injury, pain, and discharge, Neck: Negative for injury, pain, and swelling, Cardiovascular: Negative for chest pain, palpitations, and edema, Respiratory: Negative for shortness of breath, cough, wheezing, and pleuritic chest pain, Abdomen/GI: Negative for abdominal pain, nausea, vomiting, diarrhea, and constipation, Back: Negative for injury and pain, : Negative for injury, bleeding, discharge, and swelling, MS/Extremity: Negative for injury and deformity, Neuro: Negative for headache, weakness, numbness, tingling, and seizure, Psych: Negative for depression, anxiety, suicide ideation, homicidal ideation, and hallucinations, 10:01 Skin: Positive for abscess, erythema, of the base of scrotum and left thigh, Exam: 09:59 Constitutional: This is a well developed, well nourished patient who is awake, alert, snw and in no acute distress. Head/Face: Normocephalic, atraumatic. Eyes: Pupils equal round and reactive to light, extra-ocular motions intact. Lids and lashes normal. Conjunctiva and sclera are non-icteric and not injected. Cornea within normal limits. Periorbital areas with no swelling, redness, or edema. ENT: Nares patent. No nasal discharge, no septal abnormalities noted. Tympanic membranes are normal and external auditory canals are clear. Oropharynx with no redness, swelling, or masses, exudates, or evidence of obstruction, uvula midline. Mucous membranes moist. Neck: Trachea midline, no thyromegaly or masses palpated, and no cervical lymphadenopathy. Supple, full range of motion without nuchal rigidity, or vertebral point tenderness. No Meningismus. Chest/axilla: Normal chest wall appearance and motion. Nontender with no deformity. No lesions are appreciated. Cardiovascular: Tachycardic rate and rhythm with a normal S1 and S2. No gallops, murmurs, or rubs. Normal PMI, no JVD. No pulse deficits. Respiratory: Lungs have equal breath sounds bilaterally, clear to auscultation and percussion. No rales, rhonchi or wheezes noted. No increased work of breathing, no retractions or nasal flaring. Abdomen/GI: Soft, non-tender, with normal bowel sounds. No distension or tympany. No guarding or rebound. No evidence of tenderness throughout. Back: No spinal tenderness. No costovertebral tenderness. Full range of motion. MS/ Extremity: Pulses equal, no cyanosis. Neurovascular intact. Full, normal range of motion. Neuro: Awake and alert, GCS 15, oriented to person, place, time, and situation. Cranial nerves II-XII grossly intact. Motor strength 5/5 in all extremities. Sensory grossly intact. Cerebellar exam normal. Normal gait. Psych: Awake, alert, with orientation to person, place and time. Behavior, mood, and affect are within normal limits. 09:59 Skin: Appearance: normal except for affected area, abscess, that is moderate sized, that is large, of the One draining abscess noted to central scrotal base, one abscess with surrounding cellulitis and induration to left thigh, with drainage, with fluctuance, with surrounding cellulitis, that is moderate, Vital Signs: 09:12 Resp 18; Weight 102.06 kg; Height 5 ft. 6 in. ; Pain 10/10; ll1 09:16 BP 131 / 80; Pulse 117; Resp 18; Temp 97.7; Pulse Ox 100% on R/A; bc6 10:15 BP 128 / 78; Pulse 122; Resp 18; Pulse Ox 99% on R/A; eh3 11:15 BP 127 / 87; Pulse 115; Resp 18; Temp 100.7(O); Pulse Ox 99% on R/A; Pain 8/10; eh3 12:15 BP 127 / 91; Pulse 113; Resp 18; Pulse Ox 99% on R/A; eh3 13:15 BP 127 / 79; Pulse 114; Resp 18; Pulse Ox 100% on R/A; eh3 14:15 BP 127 / 73; Pulse 111; Resp 19; Pulse Ox 100% on R/A; eh3 15:15 BP 127 / 90; Pulse 106; Resp 20; Pulse Ox 100% on R/A; eh3 16:15 BP 122 / 77; Pulse 107; Resp 19; Pulse Ox 100% on R/A; eh3 09:12 Body Mass Index 36.32 (102.06 kg, 167.64 cm) ll1 09:12 Pain Scale: Adult ll1 11:15 Pain Scale: Adult eh3 MDM: 09:12 Patient medically screened. snw 09:45 Data reviewed: vital signs, nurses notes. Management of patient was discussed with the snw following: General Surgery, Dr. Kahn notified of pt status in ED. I considered the following discharge prescriptions or medication management in the emergency department Medications were administered in the Emergency Department. See JUN. 09:57 ED course: Pt with abscess that began draining to base of scrotum, + induration. Noted snw abscess to left upper thigh yesterday with area of surrounding cellulitis. On initial exam, pt noted to have HR of 122. Source: skin = A. HR and fever/chill = B, awaiting labs. 11:21 Counseling: I had a detailed discussion with the patient and/or guardian regarding the snw historical points, exam findings, and any diagnostic results supporting the discharge/admit diagnosis, the need for further work-up and treatment in the hospital. 12:00 Management of patient was discussed with the following: Hospitalist: Discussed snw hospitalization for sepsis, abscess, and surgical debridement. 12:20 ED course: Dr. Kahn in dept assessing pt. [facility] 01/31 09:24 Order name: Blood Culture Adult (2) sn 01/31 09:24 Order name: CBC with Diff; Complete Time: 09:57 [facility] 01/31 09:24 Order name: CMP; Complete Time: 10:20 snw 01/31 09:24 Order name: Lactate w/ 2H reflex if indic.; Complete Time: 10:13 snw 01/31 09:24 Order name: Protime (+inr); Complete Time: 10:03 snw 01/31 09:24 Order name: Ptt, Activated; Complete Time: 10:03 snw 01/31 10:58 Order name: CT Pelvis w cont; Complete Time: 11:49 snw 01/31 09:24 Order name: EKG; Complete Time: 09:24 snw 01/31 09:24 Order name: Accucheck; Complete Time: 09:42 snw 01/31 09:24 Order name: Cardiac monitoring; Complete Time: 09:42 snw 01/31 09:24 Order name: EKG - Nurse/Tech; Complete Time: 10:23 snw 01/31 09:24 Order name: IV Saline Lock - Large Bore; Complete Time: 09:42 snw 01/31 09:24 Order name: Labs collected and sent; Complete Time: 09:42 snw 01/31 09:24 Order name: O2 Per Protocol; Complete Time: 09:25 snw 01/31 09:24 Order name: O2 Sat Monitoring; Complete Time: 09:25 snw 01/31 09:24 Order name: Vital Signs; Complete Time: 09:25 snw 01/31 09:24 Order name: NPO; Complete Time: 09:25 snw EC:11 Rate is 107 beats/min. Rhythm is regular. QRS [place] is Normal. CT interval is normal. snw QRS interval is shortened. Clinical impression: NSR w/ Non-specific ST/T Changes and Sinus tachycardia. Administered Medications: 10:04 Drug: NS 0.9% IV (30 ml/kg) 30 ml/kg IV at bolus once; Sepsis Protocol Route: IV; Rate: eh3 bolus; Site: right antecubital; 15:30 Follow up: IV Status: Completed infusion; IV Intake: 3000ml eh3 10:15 Drug: HYDROmorphone IVP 1 mg IVP once Route: IVP; Site: right antecubital; eh3 10:45 Follow up: Response: No adverse reaction; Pain is decreased; RASS: Alert and Calm (0) eh3 10:15 Drug: Piperacillin-Tazobactam IVPB 3.375 grams IVPB once over 60 mins; (mix in NS 100 eh3 mL) Route: IVPB; Infused Over: 60 mins; Site: right antecubital; 11:15 Follow up: Response: No adverse reaction; IV Status: Completed infusion; IV Intake: eh3 100ml 12:03 Drug: Ibuprofen PO 600 mg PO once Route: PO; eh3 14:13 Follow up: Response: No adverse reaction eh3 12:07 Drug: vancoMYCIN IVPB 1.5 grams IVPB at calculated rate once Route: IVPB; Rate: eh3 calculated rate; Site: right antecubital; 14:13 Follow up: Response: No adverse reaction; IV Status: Completed infusion; IV Intake: eh3 500ml Disposition Summary: 01/31/23 11:56 Hospitalization Ordered Notes: Hospitalization Status: Inpatient Admission snw Provider: Red Hilton snw Condition: Stable snw Problem: new snw Symptoms: are unchanged snw Bed/Room Type: Standard snw Location: Telemetry/MedSurg (Inpatient)(01/31/23 17:38) bd Room Assignment: 206(01/31/23 17:38) bd Diagnosis - Sepsis, unspecified organism snw - Cutaneous abscess of groin snw - Cutaneous abscess of left lower limb snw Forms: - Medication Reconciliation Form snw - SBAR form snw - Leadership Thank You Letter snw Signatures: Dispatcher [employer] EDMS Narcisa Banks Shelly, FNP-C EXPLOSIVES WORKER-Csnw Misha Meza RN RN ll1 Jennyfer Ramos RN RN eh3 Anastasia Killian RN RN kb3 Corrections: (The following items were deleted from the chart) 15:18 11:56 Telemetry/MedSurg (Inpatient) snw kb3 15:18 11:56 snw kb3 17:38 15:18 [facility] ER HOLD kb3 bd 17:38 15:18 ERHOLD- kb3 bd
--- NOTE | 2023-01-31 11:57 | ER ---
Nurse's Notes [facility] Name: Star Hess Age: 37 yrs Sex: Male : 1985 Arrival Date: 01/31/2023 Time: 08:52 Bed 15 Private MD: Diagnosis: Sepsis, unspecified organism;Cutaneous abscess of groin;Cutaneous abscess of left lower limb Presentation: 01/31 09:12 Chief complaint: Patient states: Abscess to perineal area for 3 days, got worse today.. ll1 L thigh abscess starting to pop up now. Feels hot. Coronavirus screen: Client denies travel out of the [place] in the last 14 days. At this time, the client does not indicate any symptoms associated with coronavirus-19. Ebola Screen: Patient denies travel to an Ebola-affected area in the 21 days before illness onset. Initial Sepsis Screen: Does the patient meet any 2 criteria? No. Patient's initial sepsis screen is negative. Does the patient have a suspected source of infection? Yes: Skin breakdown/wound. Risk Assessment: Do you want to hurt yourself or someone else? Patient reports no desire to harm self or others. Onset of symptoms was January 29, 2023. 09:12 Method Of Arrival: Ambulatory ll1 09:12 Acuity: ANJANA 3 ll1 Historical: - Allergies: 09:11 No Known Allergies; ll1 - PMHx: 09:11 None; ll1 - PSHx: 09:07 gallbladder removal 2013; ll1 09:11 L arm SX; ll1 - Immunization history:: Adult Immunizations up to date. - Social history:: Smoking status: Patient denies any tobacco usage or history of. Screenin:15 [facility] ED Fall Risk Assessment (Adult) Score/Fall Risk Level 0 - 2 = Low Risk. Abuse eh3 screen: Denies threats or abuse. Denies injuries from another. Nutritional screening: No deficits noted. Tuberculosis screening: No symptoms or risk factors identified. Assessment: 09:15 General: Appears in no apparent distress. uncomfortable, Behavior is calm, cooperative, eh3 appropriate for age. Pain: Complains of pain in groin. Neuro: Level of Consciousness is awake, alert, obeys commands, Oriented to person, place, time, situation. Cardiovascular: Capillary refill < 3 seconds Patient's skin is warm and dry. Rhythm is sinus tachycardia. Respiratory: Airway is patent Respiratory effort is even, unlabored, Respiratory pattern is regular, symmetrical. GI: Abdomen is round non-distended. Derm: Skin is pink, warm \T\ dry. Abscess located on groin. Musculoskeletal: Circulation, motion, and sensation intact. 10:15 Pain: Complains of pain in groin Pain currently is 8 out of 10 on a pain scale. Neuro: eh3 Gal[place] Agitation-Sedation Scale (RASS): 0 - Alert and Calm. 10:15 Reassessment: Patient appears in no apparent distress at this time. Patient and/or 3 family updated on plan of care and expected duration. Pain level reassessed. Patient is alert, oriented x 3, equal unlabored respirations, skin warm/dry/pink. 11:15 Reassessment: Patient appears in no apparent distress at this time. Patient and/or 3 family updated on plan of care and expected duration. Pain level reassessed. Patient is alert, oriented x 3, equal unlabored respirations, skin warm/dry/pink. 12:15 Reassessment: Patient appears in no apparent distress at this time. Patient and/or 3 family updated on plan of care and expected duration. Pain level reassessed. Patient is alert, oriented x 3, equal unlabored respirations, skin warm/dry/pink. 13:15 Reassessment: Patient appears in no apparent distress at this time. Patient and/or 3 family updated on plan of care and expected duration. Pain level reassessed. Patient is alert, oriented x 3, equal unlabored respirations, skin warm/dry/pink. 14:15 Reassessment: Patient appears in no apparent distress at this time. Patient and/or 3 family updated on plan of care and expected duration. Pain level reassessed. Patient is alert, oriented x 3, equal unlabored respirations, skin warm/dry/pink. 15:15 Reassessment: Patient appears in no apparent distress at this time. Patient and/or 3 family updated on plan of care and expected duration. Pain level reassessed. Patient is alert, oriented x 3, equal unlabored respirations, skin warm/dry/pink. 16:15 Reassessment: Patient appears in no apparent distress at this time. Patient and/or 3 family updated on plan of care and expected duration. Pain level reassessed. Patient is alert, oriented x 3, equal unlabored respirations, skin warm/dry/pink. Vital Signs: 09:12 Resp 18; Weight 102.06 kg; Height 5 ft. 6 in. ; Pain 10/10; ll1 09:16 BP 131 / 80; Pulse 117; Resp 18; Temp 97.7; Pulse Ox 100% on R/A; bc6 10:15 BP 128 / 78; Pulse 122; Resp 18; Pulse Ox 99% on R/A; eh3 11:15 BP 127 / 87; Pulse 115; Resp 18; Temp 100.7(O); Pulse Ox 99% on R/A; Pain 8/10; eh3 12:15 BP 127 / 91; Pulse 113; Resp 18; Pulse Ox 99% on R/A; eh3 13:15 BP 127 / 79; Pulse 114; Resp 18; Pulse Ox 100% on R/A; eh3 14:15 BP 127 / 73; Pulse 111; Resp 19; Pulse Ox 100% on R/A; eh3 15:15 BP 127 / 90; Pulse 106; Resp 20; Pulse Ox 100% on R/A; eh3 16:15 BP 122 / 77; Pulse 107; Resp 19; Pulse Ox 100% on R/A; eh3 09:12 Body Mass Index 36.32 (102.06 kg, 167.64 cm) ll1 09:12 Pain Scale: Adult ll1 11:15 Pain Scale: Adult eh3 ED Course: 08:53 Patient arrived in ED. rg4 09:07 Arm band placed on Patient placed in an exam room, on a stretcher. ll1 09:08 Fely Joshi FNP-C is PHCP. snw 09:08 Michael Jim MD is Attending Physician. snw 09:14 Triage completed. ll1 09:15 Patient has correct armband on for positive identification. Bed in low position. Call eh3 light in reach. Side rails up X2. Adult w/ patient. Provided Education on: Use of call mejia. Client placed on continuous cardiac and pulse oximetry monitoring. NIBP monitoring applied. 09:25 Jennyfer Ramos, RN is Primary Nurse. 3 09:25 Inserted saline lock: 22 gauge in right antecubital area, using aseptic technique. eh3 Blood collected. 11:12 CT Pelvis w cont In Process Unspecified. EDMS 11:55 Red Hilton MD is Hospitalizing Provider. snw 16:29 No provider procedures requiring assistance completed. Patient admitted, IV remains in eh3 place. Administered Medications: 10:04 Drug: NS 0.9% IV (30 ml/kg) 30 ml/kg IV at bolus once; Sepsis Protocol Route: IV; Rate: eh3 bolus; Site: right antecubital; 15:30 Follow up: IV Status: Completed infusion; IV Intake: 3000ml eh3 10:15 Drug: HYDROmorphone IVP 1 mg IVP once Route: IVP; Site: right antecubital; eh3 10:45 Follow up: Response: No adverse reaction; Pain is decreased; RASS: Alert and Calm (0) eh3 10:15 Drug: Piperacillin-Tazobactam IVPB 3.375 grams IVPB once over 60 mins; (mix in NS 100 eh3 mL) Route: IVPB; Infused Over: 60 mins; Site: right antecubital; 11:15 Follow up: Response: No adverse reaction; IV Status: Completed infusion; IV Intake: eh3 100ml 12:03 Drug: Ibuprofen PO 600 mg PO once Route: PO; eh3 14:13 Follow up: Response: No adverse reaction eh3 12:07 Drug: vancoMYCIN IVPB 1.5 grams IVPB at calculated rate once Route: IVPB; Rate: eh3 calculated rate; Site: right antecubital; 14:13 Follow up: Response: No adverse reaction; IV Status: Completed infusion; IV Intake: eh3 500ml Medication: 16:29 VIS not applicable for this client. eh3 Intake: 11:15 IV: 100ml; Total: 100ml. eh3 14:13 IV: 500ml; Total: 600ml. eh3 15:30 IV: 3000ml; Total: 3600ml. eh3 Outcome: 11:56 Decision to Hospitalize by Provider. snw 16:29 Admitted to ER Hold. Please see [facility] for further documentation. eh3 16:29 Condition: stable 16:29 Instructed on the need for admit, 18:39 Patient left the ED. eh3 Signatures: Dispatcher [employer] EDIL Fely Joshi FNP-C FNP-Tiarra Pak rg4 Misha Meza RN RN ll1 Jennyfer Ramos RN RN 3 Sheri May 6 Corrections: (The following items were deleted from the chart) 16:27 10:15 BP 127 / 87; Pulse 115bpm; Resp 18bpm; Pulse Ox 99% RA; Temp 100.7F Oral; Pain 3 11/15, Adult; [facility] 16:27 11:15 BP 127 / 91; Pulse 113bpm; Resp 18bpm; Pulse Ox 99% RA; eh3 3
[2023-01-31] MEDS ORDERED: VANCOMYCIN 1.5 GM in NA CHLORIDE 0.9% 500 ML IVPB ONE (12:00)
[2023-01-31] MEDS ORDERED: IBUPROFEN 200 MG TAB PO ONE (12:13)
--- NOTE | 2023-01-31 12:56 | P.HP ---
Certification for Inpatient Patient admitted to: Inpatient With expected LOS: >2 Midnights Patient will require the following post-hospital care: None Practitioner: I am a practitioner with admitting privileges, knowledge of patient current condition, hospital course, and medical plan of care. Services: Services provided to patient in accordance with Admission requirements found in Title 42 Section 412.3 of the Code of Federal Regulations Patient History Date of Service: 01/31/23 Reason for admission: Sepsis, scrotal abscess History of Present Illness: 37-year-old otherwise healthy male who identifies as a female presents to the emergency department chief complaint left thigh abscess, scrotal abscess. He reports that his symptoms began with a small lump in each area on Saturday and progressively got worse, he has been running fevers in the past few days at home subjectively taking Tylenol. He was evaluated in the emergency department he is found to be tachycardic, running low-grade fever labs are significant for a white blood cell count of 11.[address] pelvis was performed which showed no definitive abscess. Monitor inflammatory changes in the fat along the base of the scrotal sac. ED provider discussed case with general surgery, patient be admitted to the hospital service for management of abscesses with consult surgery. 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 moist/pink, EOMI, Sclerae nonicteric Neck: Supple, 2+ carotid pulse no bruit, No LAD, Without JVD or thyroid abnormality Respiratory: Clear to auscultation bilaterally, Normal air movement Cardiovascular: Regular rate/rhythm, Normal S1 S2 Capillary refill: <2 Seconds Gastrointestinal: Normal bowel sounds, No tenderness Musculoskeletal: No tenderness Integumentary: Other (Abscess noted at the base of the scrotum as well as left anterior thigh area) Neurological: Normal gait, Normal speech, Normal strength at 5/5 x4 extr, Normal tone, Normal affect Lymphatics: No axilla or inguinal lymphadenopathy - Studies Laboratory Data (last 24 hrs) 01/31/23 01/31/23 01/31/23 09:40 09:40 09:40 WBC 11.30 H Hgb 15.0 Hct 43.6 Plt Count 147 L PT 12.4 INR 1.13 APTT 32.7 Sodium 139 Potassium 3.6 BUN 11 Creatinine 0.86 Glucose 122 H Total Bilirubin 0.7 AST 22 ALT 46 Alkaline Phosphatase 97 Assessment and Plan - Plan Assessment: Sepsis secondary to scrotal abscess, left thigh abscess Hyperglycemia Plan: Sepsis secondary to scrotal abscess, left thigh abscess No severe sepsis or septic shock currently, received 30 cc/kg IV fluid bolus in ED Continue broad-spectrum antibiotics, surgical consult in place N.p.o. after midnight in anticipation of incision and drainage Hyperglycemia Glucose 122, family history of diabetes, obtain A1c DVT PPX: SCD Code status: Full Discharge Plan: Home Plan to discharge in: 72 Hours - Advance Directives Does patient have a Living Will: No Does patient have a Durable POA for Healthcare: No - Code Status/Comfort Care Code Status Assessed: Yes (Full code) Critical Care: No Time Spent Managing Pts Care (In Minutes): 55
--- NOTE | 2023-01-31 18:02 | P.CNS ---
Date of Consult: 01/31/23 Reason for Consult: Abscess Requesting Physician: Stu Luong Chief Complaint: Sepsis, scrotal abscess History of Present Illness: 37-year-old woman, biological male, with no significant past medical history presents with about 3 days of perineal scrotal pain. He noted a small bump in that region earlier this week, and he figured it was secondary to shaving. Efforts to manage it himself at home were unsuccessful, and it progressively worsened until the pain became unbearable and he came to the emergency department. He also acknowledges the presence of some feverishness and chills. He denies having eaten anything since 7 PM yesterday, and he only had some water to take medications given to him in the emergency department since he arrived there this morning. Past medical history: None Past surgical history: Laparoscopic cholecystectomy No known drug allergies Social history: No history of smoking Examination: Somewhat uncomfortable appearing but in no acute distress Alert, awake, oriented x3 No dyspnea or sign of respiratory distress Abdomen nontender Genitalia: Uncircumcised without lesion, orthotopic meatus patent without lesion or discharge. Testes bilaterally descended and nontender. Scrotum normal except for the junction of the scrotum with the perineum where there was an indurated region approximately 2 cm in diameter with superficial opening with purulent and somewhat necrotic debris overlying, with induration extending into the perineum Musculoskeletal: Able to move all extremities without significant limitation noted CT - Pelvis W/Cont - 01/31/2023 11:11 am FINDINGS: There is mild skin thickening and subcutaneous induration seen along the left aspect of the anterior scrotal region. There is inflammatory changes also at the inferior scrotal location. Well-formed fluid collection to indicate abscess not seen. Perirectal abscess not seen. Mild lymphadenopathy is seen in both inguinal regions. Small bilateral fat containing inguinal hernia. IMPRESSION: No definitive abscess seen. Moderate inflammatory changes in the fat along the base of the scrotal sac. WBC 11.3, hemoglobin 15, platelets 147, creatinine 0.86, INR 1.13 Assessment and recommendation: 37-year-old woman, biologic male, with perineal scrotal induration/abscess associated with left thigh suspected cellulitis. -I counseled the patient that since the indurated area did appear to be somewhat opened superiorly, with antibiotic therapy, it may resolve on its own, but since he has now become febrile and he is in the emergency department, the better point of valor would be to incise the area and drain any purulence potentially within to allow the infection to resolve more expeditiously. I explained that this was called incision and drainage of a perineal-scrotal abscess. -I counseled him on postoperative care expectations to include twice daily sitz bath's followed by dressing packing in a wet-to-dry fashion while the incised area has an opportunity to heal via secondary intention. -I further counseled on the potential that this may have developed secondary to a [id number]; so I suggested he would benefit from general surgical/colorectal surgeon consultation to rule that out. -He agreed to operative management and this will be completed this evening. -Recommend Bactrim DS which will likely cover MRSA relative to the left thigh cellulitis and provide adequate gram-negative coverage for the urogenital joshua, or alternatively, clindamycin and ciprofloxacin in combination may be used on discharge. 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 - Family History Mother Medical History: Diabetes - Social History Alcohol use: No CD- Drugs: No Caffeine use: Yes Place of Residence: Home Physical Examination Laboratory Data (last 24 hrs) 01/31/23 01/31/23 01/31/23 09:40 09:40 09:40 WBC 11.30 H Hgb 15.0 Hct 43.6 Plt Count 147 L PT 12.4 INR 1.13 APTT 32.7 Sodium 139 Potassium 3.6 BUN 11 Creatinine 0.86 Glucose 122 H Total Bilirubin 0.7 AST 22 ALT 46 Alkaline Phosphatase 97 - Problems (1) Perineal abscess Current Visit: Yes Status: Acute (2) Scrotal abscess Current Visit: Yes Status: Acute Conclusions/Impression: see A/P of HPI Critical Care: No
[2023-01-31] MEDS ORDERED: ONDANSETRON 4 MG/2 ML VIAL IV PRN (18:08)
[2023-01-31] MEDS: NA CHLORIDE 0.9% 1,000 ML IV SCH (18:08)
[2023-01-31] MEDS: AMPICILLIN/SULBACT 3 GM in NA CHLORIDE 0.9% 100 ML IVPB SCH (18:17)
[2023-01-31] MEDS ORDERED: Ringers Lactate 1,000 ML IV ONE (18:39)
[2023-01-31] MEDS ORDERED: VANCOMYCIN 1 GM in NA CHLORIDE 0.9% 250 ML IVPB ONE (19:00)
[2023-01-31] MEDS ORDERED: SUCCINYLCHOLINE 20 MG/ML (10 ML) IV ONE (19:04)
[2023-01-31] MEDS ORDERED: propofoL 200 MG/20 ML VIAL IV ONE (19:07)
[2023-01-31] MEDS ORDERED: MIDAZOLAM HCL 2 MG/2 ML INJ ONE (19:07)
[2023-01-31] MEDS ORDERED: FENTANYL CITR 100 MCG/2 ML ONE ×2 (19:08→19:28)
[2023-01-31] MEDS ORDERED: GLYCOPYRROLATE 0.2 MG/ML SYR ONE (19:30)
[2023-01-31] MEDS: MEPERIDINE HCL 25 MG/ML SYR ONE ×2 (19:48→20:13)
--- NOTE | 2023-01-31 19:54 | P.OP ---
Date of Service: 01/31/23 Preoperative diagnosis: Perineo-scrotal abscess Postoperative diagnosis: Same Principal procedures: Incision and drainage of perineo-scrotal abscess Debridement of skin around abscess Debridement of abscess cavity Aerobic and anaerobic cultures of abscess Urethral [place] catheter placement and removal Indication for procedure: 37-year-old woman, biologic male, with perineal scrotal induration/abscess associated with left thigh suspected cellulitis. -I counseled the patient that since the indurated area did appear to be somewhat opened superiorly, with antibiotic therapy, it may resolve on its own, but since he has now become febrile and he is in the emergency department, the better point of valor would be to incise the area and drain any purulence potentially within to allow the infection to resolve more expeditiously. I explained that this was called incision and drainage of a perineal-scrotal abscess. -I counseled him on postoperative care expectations to include twice daily sitz bath's followed by dressing packing in a wet-to-dry fashion while the incised area has an opportunity to heal via secondary intention. -I further counseled on the potential that this may have developed secondary to a [id number]; so I suggested he would benefit from general surgical/colorectal surgeon consultation to rule that out. -He agreed to operative management and this will be completed this evening. -Recommend Bactrim DS which will likely cover MRSA relative to the left thigh cellulitis and provide adequate gram-negative coverage for the urogenital joshua, or alternatively, clindamycin and ciprofloxacin in combination may be used on discharge. Procedure note: The patient was consented in the preoperative holding area before being transferred to the operative suite where general anesthesia using an LMA was induced. She had been given vancomycin and Zosyn in the emergency department. Pneumoboots were provided for DVT prophylaxis. She was placed in the high lithotomy position, padded and secured to the table appropriately. Her genitalia and perineal region was prepped using Betadine, shaved around the abscess cavity to remove the hair, and draped in standard fashion. The case was begun using a 15 blade to incise the abscess and a anterior posterior direction deep and through the indurated tissue until some purulent drainage was encountered. Cultures of that purulent drainage and the duffy of the inside of the abscess were taken. As the cavity of the abscess was noted to be also wide in addition to about 3 to 4 cm long, I then performed a cruciate incision horizontally in the perineal region along the center of the abscess cavity. At this point, I identified additional cavities in the subcutaneous tissues which were bluntly and sharply disrupted using slim clamps, my finger, and electrocautery where necessary. Once the full extent of the perineal component of the abscess was identified going posteriorly toward the rectum, I inserted my finger into the distalmost extent of that cavity and then placed the suction into that opening and incised with a 15 blade further until the majority of that cavity was opened to facilitate subsequent packing and washout. I then debrided the internal component of the abscess sharply using electrocautery and there were some necrotic edges of skin which I also excised sharply using electrocautery. I placed a 18 [place] catheter into her bladder in order to akua the urethra and ensure no involvement of the urethra. None was noted, as we were still far from the urethra. I then irrigated and suctioned out the entirety of the abscess cavity and all of the crevices copiously using saline, and after obtaining a degree of hemostasis using electrocautery, I then packed all 4 quadrants of the abscess cavity using half-inch Nu Gauze before applying 4 x 4 over the site. The Betadine was washed off her skin, she was taken out of the lithotomy position, and we placed mesh panties on her to hold the padding in place in the perineal region. She was then awakened from general anesthesia, transferred to a stretcher, and then transferred to the recovery room in good condition. Complications: None Discharge disposition: She is scheduled for admission, but as I previously indicated, she likely would be reasonably well covered with Bactrim or alternatively clindamycin plus ciprofloxacin, depending on the culture results taken intraoperatively. She will go home performing twice daily sitz bath's and warm soapy water, and afterward, repack each of the 4 corners of the abscess cavity with half-inch Nu Gauze before applying 4 x 4's over it in a wet-to-dry fashion. Subsequently, the abscess cavity will close by secondary intention. Recommend follow-up with me as an outpatient in 3 to 6 weeks.
[2023-01-31] MEDS: HYDROCODONE/APAP 7.5/325 MG TAB PO PRN (22:38)
[2023-02-01] MEDS ORDERED: MORPHINE 2 MG/ML SYR IV ONE (01:35)
[2023-02-01] MEDS: AMPICILLIN/SULBACT 3 GM in NA CHLORIDE 0.9% 100 ML IVPB SCH ×3 (01:50→16:36)
[2023-02-01 02:52] LABS: Absolute Lymphocytes (CBC) 1.9 K/uL (0.7-4.9); Hematocrit 35.5 % (39.6-49.0); Lymphocytes % 19.2 % (15.3-44.8); MCV 83.7 fL (80-100); Platelets 143 thou/uL (152-406); RBC Red Blood Cell Count 4.24 M/uL (4.33-5.43)
[2023-02-01 03:12] LABS: Potassium 3.7 mEq/L (3.5-5.1)
[2023-02-01 04:14] VITALS: BMI 36.3
[2023-02-01] MEDS: NA CHLORIDE 0.9% 1,000 ML IV SCH (05:51)
[2023-02-01] MEDS ORDERED: INFLUENZA VACCINE (for 6+ mo) 0.5 ML DOSE IMVAC ONE (08:00)
[2023-02-01] MEDS: HYDROCODONE/APAP 7.5/325 MG TAB PO PRN ×3 (08:17→20:05)
--- NOTE | 2023-02-01 08:46 | P.PN ---
Subjective Date of Service: 02/01/23 Chief Complaint: Sepsis, scrotal abscess Subjective: Improving Pain improving, still with chills overnight <Stu Luongur - Last Filed: 02/01/23 08:41> Date of Service: 02/01/23 <Red Hilton - Last Filed: 02/01/23 21:26> Review of Systems 10-point ROS is otherwise unremarkable General: Fever, Chills Genitourinary: Other (scrotal pain) <CheriseStu Debra Levin - Last Filed: 02/01/23 08:41> Physical Examination - Vital Signs Temperature: 100.5 F Blood Pressure: 119/71 Pulse: 114 Respirations: 16 Pulse Ox (%): 98 - Physical Exam General: Alert, In no apparent distress, Oriented x3 HEENT: Atraumatic, PERRLA, EOMI Neck: Supple, JVD not distended Respiratory: Clear to auscultation bilaterally, Normal air movement Cardiovascular: Regular rate/rhythm, Normal S1 S2 Capillary refill: <2 Seconds Gastrointestinal: Normal bowel sounds, No tenderness Musculoskeletal: No tenderness Integumentary: Other (left thigh abscess present, scrotal abscess present) Neurological: Normal speech, Normal tone, Normal affect - Studies Laboratory Data (last 24 hrs) 01/31/23 01/31/23 01/31/23 09:40 09:40 09:40 WBC 11.30 H Hgb 15.0 Hct 43.6 Plt Count 147 L PT 12.4 INR 1.13 APTT 32.7 Sodium 139 Potassium 3.6 BUN 11 Creatinine 0.86 Glucose 122 H Total Bilirubin 0.7 AST 22 ALT 46 Alkaline Phosphatase 97 Medications List Reviewed: Yes <Stu Luong Debra Ollie - Last Filed: 02/01/23 08:41> Assessment And Plan - Plan Assessment: Sepsis secondary to scrotal abscess, left thigh abscess Hyperglycemia Plan: Sepsis secondary to scrotal abscess, left thigh abscess No severe sepsis or septic shock currently, received 30 cc/kg IV fluid bolus in ED Continue broad-spectrum antibiotics. cultures pending Had I&D of scrotal abscess with Dr. Lara 01/31 Pending general surgery eval left thigh abscess Still with fever/chills Hyperglycemia Glucose 122, family history of diabetes A1C5.2 Dispo 24-48 hours home possibly home health DVT PPX: SCD Code status: Full Discharge Plan: Home Critical Care: No Time Spent Managing PTS Care (In Minutes): 20 <Stu Luong - Last Filed: 02/01/23 08:41> Physician Review: Patient Assessed, Agree with Above Assessment and Plan <Red Hilton - Last Filed: 02/01/23 21:26>
[2023-02-01] MEDS ORDERED: POTASSIUM 25 MEQ EFFERV TAB PO ONE (09:00)
[2023-02-01] MEDS: VANCOMYCIN 1.75 GM in NA CHLORIDE 0.9% 500 ML IVPB SCH ×4 (11:33→23:41)
[2023-02-01] MEDS: SILVER SULFADIAZINE 1% 25 GM TOP SCH (14:00)
--- NOTE | 2023-02-01 15:48 | EKG ---
Test Date: 2023-01-31 Test Time: 10:10:40 Lab Clerk: PRECIOUS MEASUREMENT RESULTS: Intervals: Rate: 107 OH: 142 QRSD: 78 QT: 302 QTc: 403 [place]: P: 35 OH: 142 QRS: 27 T: -14 INTERPRETIVE STATEMENTS: Sinus tachycardia Otherwise normal ECG Compared to ECG 11/15/2021 12:32:46 Sinus rhythm no longer present Electronically Signed On 02-01-23 15:43:31 CDT by Stanton Morfin
[2023-02-01] MEDS ORDERED: CALCIUM CARBONATE CHEW 500MG TAB PO PRN (16:08)
[2023-02-01] MEDS: ACETAMINOPHEN 325 MG TABLET PO PRN ×2 (16:36→22:38)
[2023-02-01] MEDS: FAMOTIDINE 20 MG TAB PO SCH (20:06)
[2023-02-02] MEDS: AMPICILLIN/SULBACT 3 GM in NA CHLORIDE 0.9% 100 ML IVPB SCH ×4 (01:45→20:19)
[2023-02-02] MEDS: HYDROCODONE/APAP 7.5/325 MG TAB PO PRN ×3 (01:45→15:19)
[2023-02-02 03:55] LABS: Absolute Lymphocytes (CBC) 1.9 K/uL (0.7-4.9); Hematocrit 34.8 % (39.6-49.0); Lymphocytes % 21.6 % (15.3-44.8); MCV 83.7 fL (80-100); MPV 7.5 fL (7.6-11.3); Platelets 165 thou/uL (152-406); RBC Red Blood Cell Count 4.16 M/uL (4.33-5.43)
[2023-02-02 04:11] LABS: Potassium 3.6 mEq/L (3.5-5.1)
[2023-02-02] MEDS ORDERED: MORPHINE 2 MG/ML SYR IV ONE (05:58)
[2023-02-02] MEDS ORDERED: POTASSIUM CL SA 10 MEQ TAB PO ONE (09:00)
[2023-02-02] MEDS: SILVER SULFADIAZINE 1% 25 GM TOP SCH (09:09)
[2023-02-02] MEDS: FAMOTIDINE 20 MG TAB PO SCH ×2 (09:09→20:19)
[2023-02-02] MEDS ORDERED: NA CHLORIDE 0.9% 100 ML ONE (09:17)
--- NOTE | 2023-02-02 11:58 | CON ---
Date of Consultation: 01/31/2023 Brief History Of Present Illness: The patient is a 37-year-old male who presents with no significant past medical history, who noted approximately 3-4 days of peroneal and left lateral thigh swelling, tenderness, pain, and spontaneous drainage from both sites. The patient explains that they were shav ing the scrotal area and believes that that was likely the nidus for the infection of the scrotum, bu t does not believe that it was related to the thigh abscess. The area has been shaved in the past, b ut the patient does not feel that this is the likely cause of the thigh abscess. Efforts to maintain this at home with cleansing were unsuccessful and as such, the patient comes in the emergency room w ith the above-stated complaints. Past Medical History: Denies. Past Surgical History: Laparoscopic cholecystectomy. Allergies: NO KNOWN DRUG ALLERGIES. Social History: Denies smoking. Drinks alcohol only socially and denies recreational drug use. Review of Systems: Ten-point review of systems other than HPI, the patient denies. Physical Examination: General: At the time of examination, awake, alert, and oriented. Psychiatric: Appropriate and conversive. HEENT: Normocephalic. Sclerae are anicteric. Mucous membranes are moist. Oropharynx is clear. Neck: Supple without JVD. Chest: Normal expansion and excursion. Cardiovascular: Regular rate and rhythm. Pulmonary: Clear to auscultation bilaterally. Abdomen: Soft. Genitourinary: Focused examination of the perineum, the patient has a scrotal abscess on the posteri or aspect of the scrotum near the perineum, which has some necrotic tissue and drainage. The left th igh has an area of cellulitis, but no drainable collections are evident in this area. There is tende rness, cellulitis, and warmth to the touch. Laboratory Data: Revealed a white blood cell count of 11.3, hemoglobin 15.0, hematocrit of 43.6, sondra telet count is 147. Sodium 139, potassium 3.6, chloride 106, carbon dioxide is 29, BUN 11, creatinin e is 0.86. Lactic acid 1.0. LFTs were normal. CT of the pelvis from 01/31/2023 officially read as no definitive abscess seen, moderate inflammatory changes in the fat along the base of the scrotal sa c, mild thickening was noted. Small bilateral fat containing inguinal hernia is also noted incidenta l . Assessment And Plan: This is a 37-year-old male who presents with cellulitis of the left thigh and s crotal drainage, possible abscess. 1.IV fluid hydration. 2.Antibiotic coverage. 3.We will apply Silvadene topically to the left thigh area. 4.Dr. Lara, urologist, is coming to evaluate the patient with respect to the scrotal issue. We w ill await Dr. Lara' recommendations prior to any surgical intervention; however, there is no drain able collection at this point. As such, I have explained that we will try medical management with re spect to the thigh, including topical and IV antibiotics. Serial exams marking the area of celluliti s, wrap, elevation, and recurrent exams. If this collection does come to an abscess formation, I hav e explained risks, benefits, and alternatives of incision and drainage of the left thigh abscess, inc luding but not limited to bleeding, infection, damage to surrounding tissues, need for further operat ions and procedures, blood clots, heart attack, strokes, and other perioperative complications relate d to anesthesia and recovery period, some of which cannot be anticipated or unforeseen at this point. However, if an abscess is evident in this area or becomes evident, I have made the recommendation f or surgical intervention. The patient displayed understanding of above-stated plan and agreed to pro ceed as indicated. Thank you for this interesting consult. ARTI/RONNIE Voice ID: [id number] Report ID: [id number]
[2023-02-02] MEDS: VANCOMYCIN 1.75 GM in NA CHLORIDE 0.9% 500 ML IVPB SCH (12:00)
--- NOTE | 2023-02-02 12:29 | P.PN ---
Subjective Date of Service: 02/02/23 Chief Complaint: Sepsis, scrotal abscess Subjective: Improving Increasing pain left thigh abscess Review of Systems 10-point ROS is otherwise unremarkable Integumentary: Other (left thigh pain) Physical Examination - Vital Signs Temperature: 98.5 F Blood Pressure: 140/75 Pulse: 89 Respirations: 16 Pulse Ox (%): 98 - Physical Exam General: Alert, In no apparent distress, Oriented x3 HEENT: Atraumatic, PERRLA, EOMI Neck: Supple, JVD not distended Respiratory: Clear to auscultation bilaterally, Normal air movement Cardiovascular: Regular rate/rhythm, Normal S1 S2 Capillary refill: <2 Seconds Gastrointestinal: Normal bowel sounds, No tenderness Musculoskeletal: No tenderness Integumentary: Other (Abscess present left lateral thigh, wound packed to scrotal area) Neurological: Normal speech, Normal tone, Normal affect Lymphatics: No axilla or inguinal lymphadenopathy - Studies Medications List Reviewed: Yes Assessment And Plan - Plan Assessment: Sepsis secondary to scrotal abscess, left thigh abscess Hyperglycemia Plan: Sepsis secondary to scrotal abscess, left thigh abscess No severe sepsis or septic shock currently, received 30 cc/kg IV fluid bolus in ED Continue broad-spectrum antibiotics. cultures pending Had I&D of scrotal abscess with Dr. Lara 01/31 General surgery plans for I&D of left thigh 02/03 PRN pain meds Hyperglycemia Glucose 122, family history of diabetes A1C5.2 Dispo 24-48 hours home possibly home health DVT PPX: SCD Code status: Full Discharge Plan: Home Plan to discharge in: 48 Hours - Code Status/Comfort Care Code Status Assessed: Yes (Full) Physician Review: Patient Assessed, Agree with Above Assessment and Plan Critical Care: No Time Spent Managing PTS Care (In Minutes): 20
[2023-02-02] MEDS: VANCOMYCIN 2 GM in NA CHLORIDE 0.9% 500 ML IVPB SCH (13:57)
[2023-02-02] MEDS: MORPHINE 2 MG/ML SYR IV PRN ×2 (16:52→21:05)
[2023-02-02] MEDS: ACETAMINOPHEN 325 MG TABLET PO PRN (20:19)
[2023-02-03] MEDS: VANCOMYCIN 2 GM in NA CHLORIDE 0.9% 500 ML IVPB SCH ×2 (01:00→12:17)
[2023-02-03] MEDS: MORPHINE 2 MG/ML SYR IV PRN ×4 (04:22→19:58)
[2023-02-03] MEDS: AMPICILLIN/SULBACT 3 GM in NA CHLORIDE 0.9% 100 ML IVPB SCH ×4 (04:23→19:57)
[2023-02-03 04:50] LABS: Absolute Lymphocytes (CBC) 1.6 K/uL (0.7-4.9); Hematocrit 36.5 % (39.6-49.0); Lymphocytes % 22.1 % (15.3-44.8); MCV 83.5 fL (80-100); MPV 7.5 fL (7.6-11.3); Platelets 194 thou/uL (152-406); RBC Red Blood Cell Count 4.37 M/uL (4.33-5.43)
[2023-02-03 05:07] LABS: Potassium 3.3 mEq/L (3.5-5.1)
[2023-02-03] MEDS: FAMOTIDINE 20 MG TAB PO SCH ×2 (08:28→19:56)
[2023-02-03] MEDS: SILVER SULFADIAZINE 1% 25 GM TOP SCH (08:29)
--- NOTE | 2023-02-03 08:38 | P.PN ---
Subjective Date of Service: 02/03/23 Chief Complaint: Sepsis, scrotal abscess Still having pain in left thigh, otherwise no complaints <JulieneffieStu Ollie - Last Filed: 02/03/23 08:35> Date of Service: 02/03/23 <Red Hilton - Last Filed: 02/03/23 22:10> Review of Systems 10-point ROS is otherwise unremarkable Musculoskeletal: Leg Pain <Stu Luong - Last Filed: 02/03/23 08:35> Physical Examination - Vital Signs Temperature: 98.2 F Blood Pressure: 127/69 Pulse: 85 Respirations: 18 Pulse Ox (%): 98 - Physical Exam General: Alert, In no apparent distress, Oriented x3 HEENT: Atraumatic, PERRLA Neck: Supple Respiratory: Clear to auscultation bilaterally, Normal air movement Cardiovascular: Regular rate/rhythm, Normal S1 S2 Capillary refill: <2 Seconds Gastrointestinal: No tenderness Musculoskeletal: Erythema, Tenderness Integumentary: Other (Abscess left lateral thigh with surrounding erythema) Neurological: Normal speech, Normal affect - Studies Medications List Reviewed: Yes <JulienStu chou Effie Levin - Last Filed: 02/03/23 08:35> Assessment And Plan - Plan Assessment: Sepsis secondary to scrotal abscess, left thigh abscess Hyperglycemia Plan: Sepsis secondary to scrotal abscess, left thigh abscess No severe sepsis or septic shock currently, received 30 cc/kg IV fluid bolus in ED Continue broad-spectrum antibiotics Blood cultures NGTD Genital wound culture with MRSA sensitive to vanc and bactrim Had I&D of scrotal abscess with Dr. Lara 01/31 General surgery plans for I&D of left thigh this morning PRN pain meds Hyperglycemia Glucose 122, family history of diabetes A1C 5.2 Dispo 24-48 hours home possibly home health DVT PPX: SCD Code status: Full Discharge Plan: Home Plan to discharge in: 24 Hours - Code Status/Comfort Care Code Status Assessed: Yes (Full ) Physician Review: Patient Assessed, Agree with Above Assessment and Plan Critical Care: No Time Spent Managing PTS Care (In Minutes): 30 <Stu Luong - Last Filed: 02/03/23 08:35> Physician Review: Patient Assessed, Agree with Above Assessment and Plan <Red Hilton - Last Filed: 02/03/23 22:10>
[2023-02-03] MEDS ORDERED: POTASSIUM CL SA 10 MEQ TAB PO ONE (09:00)
[2023-02-03] MEDS ORDERED: Ringers Lactate 1,000 ML IV ONE (09:52)
[2023-02-03] MEDS ORDERED: propofoL 200 MG/20 ML VIAL IV ONE (10:05)
[2023-02-03] MEDS ORDERED: LIDOCAINE 2% MPF 5 ML VIAL ONE (10:05)
[2023-02-03] MEDS ORDERED: FENTANYL CITR 100 MCG/2 ML ONE ×2 (10:05→10:41)
[2023-02-03] MEDS ORDERED: MIDAZOLAM HCL 2 MG/2 ML INJ ONE (10:05)
[2023-02-03] MEDS: BUPIVACAINE 0.25% PF 30 ML VIAL ONE ×2 (10:20→10:26)
[2023-02-03] MEDS ORDERED: ONDANSETRON 4 MG/2 ML VIAL ONE (10:41)
--- NOTE | 2023-02-03 10:42 | P.OP ---
Preoperative diagnosis: LEFT Thigh Abscess Postoperative diagnosis: LEFT Thigh Abscess Primary procedure: Excisional Debridement of LEFT Thigh Abscess Anesthesia: GETA + Local Estimated blood loss: <5cc Specimen: Cultures, Debridement Tissue Findings: ~ 3cm x 3cm abscess to the fascia, sebaceous material as well noted Complications: None Transferred to: Recovery Room Condition: Good
[2023-02-03] MEDS ORDERED: dexAMETHasone 10 MG/ML VIAL ONE (10:54)
[2023-02-03] MEDS: MEPERIDINE HCL 25 MG/ML SYR ONE ×2 (10:54→11:08)
--- NOTE | 2023-02-03 11:11 | OP ---
Date of Procedure: 02/03/2023 Surgeon: Tashi Kahn MD, Preoperative Diagnosis: Left thigh abscess. Postoperative Diagnosis: Left thigh abscess. Procedure Performed: Excisional debridement of left thigh abscess. Anesthesia: General endotracheal plus local with 0.25% Marcaine. Estimated Blood Loss: 5 cc. Specimen: Culture sent for both aerobic and anaerobic speciation and debridement tissue. Findings: Approximately 3 cm x 3 cm area of cellulitis and abscess extending down up to the fascia, but not involving the fascia of the muscle on the left mid thigh on the lateral aspect. Sebaceous ma terial was noted as well, but minimal at this area. Complications: None. Disposition: Patient transferred to recovery room in good condition. Procedure In Detail: After an informed consent was obtained, patient was brought to the operating ro om, prepped and draped in the usual sterile fashion. After adequate anesthesia was achieved, I made an elliptical incision down through the area of cellulitis and drainage, dissected down using electro cautery to remove an entire area of abscess, which was multiloculated and with multiple small pockets and what appeared to be small amounts of sebaceous material. This was removed in its entirety, all the way extending down to the fascia overlying the muscle, but not involving it. At this point, the area was inspected. Hemostasis was achieved with electrocautery. The wound was irrigated multiple t imes until completely clear and then packed with Vashe soaked Kerlix. Sterile dressing placed over t he top. Patient tolerated the procedure well without evidence of complication and transferred to PACU in good condition. All counts were correct at the end of the ca se. ARTI/RONNIE Voice ID: [id number] Report ID: [id number]
[2023-02-03] MEDS: HYDROCODONE/APAP 7.5/325 MG TAB PO PRN (12:17)
[2023-02-03] MEDS: ACETAMINOPHEN 325 MG TABLET PO PRN (19:56)
[2023-02-04] MEDS: VANCOMYCIN 2 GM in NA CHLORIDE 0.9% 500 ML IVPB SCH ×2 (00:16→13:26)
[2023-02-04] MEDS: MORPHINE 2 MG/ML SYR IV PRN (00:22)
[2023-02-04 03:07] LABS: Magnesium 2.3 mg/dL (1.6-2.4)
[2023-02-04] MEDS: AMPICILLIN/SULBACT 3 GM in NA CHLORIDE 0.9% 100 ML IVPB SCH ×2 (03:56→09:00)
[2023-02-04] MEDS: HYDROCODONE/APAP 7.5/325 MG TAB PO PRN (06:17)
[2023-02-04] MEDS ORDERED: MORPHINE 2 MG/ML SYR IV ONE (09:42)
[2023-02-04] MEDS: FAMOTIDINE 20 MG TAB PO SCH ×2 (10:01→21:39)
--- NOTE | 2023-02-04 10:17 | P.PN ---
Subjective Date of Service: 02/04/23 Chief Complaint: Sepsis, scrotal abscess Subjective: Improving Still having pain in left thigh, otherwise no complaints Review of Systems 10-point ROS is otherwise unremarkable Musculoskeletal: Leg Pain Physical Examination - Vital Signs Temperature: 97.1 F Blood Pressure: 128/58 Pulse: 68 Respirations: 17 Pulse Ox (%): 100 - Physical Exam General: Alert, In no apparent distress, Oriented x3 HEENT: Atraumatic Neck: Supple Respiratory: Clear to auscultation bilaterally, Normal air movement Cardiovascular: Regular rate/rhythm, Normal S1 S2 Gastrointestinal: Non-distended Musculoskeletal: No contractures Integumentary: Other (Surgical wound to left thigh dressing intact, packing in place) Neurological: Normal speech, Normal affect Lymphatics: No axilla or inguinal lymphadenopathy - Studies Medications List Reviewed: Yes Assessment And Plan - Plan Assessment: Sepsis secondary to scrotal abscess, left thigh abscess Hyperglycemia Plan: Sepsis secondary to scrotal abscess, left thigh abscess No severe sepsis or septic shock currently, received 30 cc/kg IV fluid bolus in ED Continue broad-spectrum antibiotics Blood cultures NGTD Genital wound culture with MRSA sensitive to vanc and bactrim Had I&D of scrotal abscess with Dr. Lara 01/31 I&D of left thigh 02/[address] Still having significant pain to left thigh area after surgery PRN pain meds. Trying to switch to PO pain meds Hyperglycemia Glucose 122, family history of diabetes A1C 5.2 Dispo 24-48 hours home possibly home health DVT PPX: SCD Code status: Full Discharge Plan: Home Plan to discharge in: 24 Hours - Code Status/Comfort Care Code Status Assessed: Yes (Full) Physician Review: Patient Assessed, Agree with Above Assessment and Plan Critical Care: No Time Spent Managing PTS Care (In Minutes): 35
[2023-02-04 13:03] VITALS: O2SAT 100
[2023-02-04] MEDS: HYDROCODONE/APAP 10/325 TAB PO PRN ×2 (14:02→20:30)
[2023-02-04] MEDS ORDERED: DOCUSATE NA 100 MG CAP PO ONE ×2 (16:50→18:10)
[2023-02-05] MEDS: VANCOMYCIN 2 GM in NA CHLORIDE 0.9% 500 ML IVPB SCH (01:07)
[2023-02-05] MEDS: HYDROCODONE/APAP 10/325 TAB PO PRN ×2 (01:20→08:58)
[2023-02-05] MEDS: FAMOTIDINE 20 MG TAB PO SCH (08:42)
[2023-02-05 09:49] VITALS: TEMP 97.6
--- NOTE | 2023-02-05 12:23 | P.DS ---
Admission Date: 01/31/23 Discharge Date: 02/05/23 Reason for Admission: Sepsis, scrotal abscess - Problems (1) Perineal abscess Status: Acute (2) Scrotal abscess Status: Acute Hospital Course: Star Hess is a pleasant 37 year old biological male who identifies as a female with no significant past medical history significant who was admitted to the [facility] on 01/31/23 for Scrotal abscess and left thigh abscess. Star presented to the ED c/o left thigh and scrotal pain, presented with fever, tachycardic, and slight elevated WBC. Dr. Lara and Dr. Mehta were consulted, surgical intervention took place on 01/31/23 and appropriate dressing changes were initiated. Star tolerated Unasyn IV and PO diet, able to urinate, and ambulate independently in room. Star was able to teach back the appropriate dressing changes and antibiotic expectations for discharge. On 02/05/23, Star Hess was seen on morning rounds and deemed medically stable for discharge. Star Hess was discharged with instructions to schedule follow-up appointments with Dr. Lara, Dr. Mehta, and establish care with a PCP. Star Hess was provided prescriptions for Tendoy and Bactrim. The patient and family members were given the opportunity to ask questions Furthermore, all questions were answered to the best of my ability. A copy of this discharge summary will be sent to the above providers to facilitate continuity of care. Today, I personally spent 55 minutes with Star Hess, of which greater than 50% of the time was spent in patient education, counseling, and coordination of care as described above. Physical Exam General: Alert, In no apparent distress, Oriented x3 HEENT: Atraumatic Neck: Supple Respiratory: Clear to auscultation bilaterally, Normal air movement Cardiovascular: Regular rate/rhythm, Normal S1 S2 Gastrointestinal: Non-distended Musculoskeletal: No contractures Integumentary: Other (Surgical wound to left thigh C/D/I, packing in place, scrotum dressing C/D/I) Neurological: Normal speech, Normal affect Lymphatics: No axilla or inguinal lymphadenopathy <Jessica Herbert - Last Filed: 02/05/23 17:42> Admission Date: 01/31/23 Discharge Date: 02/06/23 Hospital Course: Patient seen and examined. Pain is well controlled. He is ambulatory and tolerating diet. Stable vitals. Patient is deemed clinically stable for discharge. Wound care instructions provided. Patient discharged with oral Bactrim as per antibiotic sensitivity. Follow-up with Dr. Mehta and Dr. Lara as outpatient. <ct felton - Last Filed: 02/06/23 07:49> Disposition: ROUTINE DISCHARGE Discharge Condition: FAIR Vital Signs/Physical Exam: Temp Pulse Resp BP Pulse Ox 97.6 F 85 17 110/53 L 99 02/05/23 08:00 02/05/23 08:00 02/05/23 08:58 02/05/23 08:00 02/05/23 08:58 Laboratory Data at Discharge: WBC 7.10 thou/uL (4.3-10.9) 02/03/23 04:38 Hgb 12.6 g/dL (13.6-17.9) L 02/03/23 04:38 Hct 36.5 % (39.6-49.0) L 02/03/23 04:38 Plt Count 194 thou/uL (152-406) 02/03/23 04:38 PT 12.4 SECONDS (9.5-12.5) 01/31/23 09:40 INR 1.13 01/31/23 09:40 APTT 32.7 SECONDS (24.3-36.9) 01/31/23 09:40 Sodium 139 mEq/L (136-145) 02/04/23 02:07 Potassium 4.0 mEq/L (3.5-5.1) D 02/04/23 02:07 BUN 7 mg/dL (7-18) 02/04/23 02:07 Creatinine 0.61 mg/dL (0.70-1.30) L 02/04/23 02:07 Glucose 165 mg/dL (74-106) H 02/04/23 02:07 Magnesium 2.3 mg/dL (1.6-2.4) 02/04/23 02:07 Total Bilirubin 0.7 mg/dL (0.2-1.0) 01/31/23 09:40 AST 22 U/L (15-37) 01/31/23 09:40 ALT 46 U/L (16-61) 01/31/23 09:40 Alkaline Phosphatase 97 U/L (45-117) 01/31/23 09:40 <Jessica Herbert - Last Filed: 02/05/23 17:42> Vital Signs/Physical Exam: Temp Pulse Resp BP Pulse Ox 97.6 F 69 20 122/61 100 02/05/23 12:00 02/05/23 12:00 02/05/23 12:00 02/05/23 12:00 02/05/23 12:00 Laboratory Data at Discharge: WBC 7.10 thou/uL (4.3-10.9) 02/03/23 04:38 Hgb 12.6 g/dL (13.6-17.9) L 02/03/23 04:38 Hct 36.5 % (39.6-49.0) L 02/03/23 04:38 Plt Count 194 thou/uL (152-406) 02/03/23 04:38 PT 12.4 SECONDS (9.5-12.5) 01/31/23 09:40 INR 1.13 01/31/23 09:40 APTT 32.7 SECONDS (24.3-36.9) 01/31/23 09:40 Sodium 139 mEq/L (136-145) 02/04/23 02:07 Potassium 4.0 mEq/L (3.5-5.1) D 02/04/23 02:07 BUN 7 mg/dL (7-18) 02/04/23 02:07 Creatinine 0.61 mg/dL (0.70-1.30) L 02/04/23 02:07 Glucose 165 mg/dL (74-106) H 02/04/23 02:07 Magnesium 2.3 mg/dL (1.6-2.4) 02/04/23 02:07 Total Bilirubin 0.7 mg/dL (0.2-1.0) 01/31/23 09:40 AST 22 U/L (15-37) 01/31/23 09:40 ALT 46 U/L (16-61) 01/31/23 09:40 Alkaline Phosphatase 97 U/L (45-117) 01/31/23 09:40 <ct felton - Last Filed: 02/06/23 07:49> Diet: Regular Activity: Ad geraldine Time spent managing pt's care (in minutes): 55 <KeonJessica - Last Filed: 02/05/23 17:42> <ct felton - Last Filed: 02/06/23 07:49> Home Medications: Hydrocodone 7.5/APAP 325 [Tendoy 7.5/325 mg] 1 tab PO Q6H PRN #15 tab 02/05/23 Ibuprofen 800 mg PO Q6H PRN 30 Days #30 tab 02/05/23 Sulfamethoxazole/Trimethoprim [Bactrim 400-80 mg Tablet] 1 each PO Q12H 14 Days #28 tab 02/05/23 New Medications: Sulfamethoxazole/Trimethoprim [Bactrim 400-80 mg Tablet] 1 each PO Q12H 14 Days #28 tab Ibuprofen 800 mg PO Q6H PRN 30 Days #30 tab PRN Reason: Pain Scale 5-7 (Moderate) Hydrocodone 7.5/APAP 325 [Tendoy 7.5/325 mg] 1 tab PO Q6H PRN #15 tab PRN Reason: Pain Physician Discharge Instructions: PROBLEM: Left Thigh/ Scrotal Abscess, MRSA, I&D GOAL: Clear understanding of disease process INSTRUCTIONS: 1. follow up with PCP in 3-5 days for medication management 2. follow up with Dr. Lara in 3-6 weeks. 3. Follow up with Dr. Mehta for wound healing management in 1 week 4. nutritional daily diet, follow up with PCP to watch blood sugar levels 5. Activity as tolerated, no restrictions 6. Return to ED if symptoms worsen Wound care instructions: twice daily sitz bath's and warm soapy water, and afterward, repack each of the 4 corners of the abscess cavity with half-inch Nu Gauze before applying 4 x 4's over it in a wet-to-dry fashion. New medications: Bactrim 400 mg Q12H for 14 days Tendoy 7.5 Q6 Prn ibuprofen 400 mg prn Diet: Regular Activity: Ad geraldine 1. follow up with PCP in 3-5 days for medication management 2. follow up with Dr. Lara in 3-6 weeks. 3. Follow up with Dr. Mehta for wound healing management in 1 week 4. nutritional daily diet, follow up with PCP to watch blood sugar levels 5. Activity as tolerated, no restrictions 6. Return to ED if symptoms worsen Wound care instructions: twice daily sitz bath's and warm soapy water, and afterward, repack each of the 4 corners of the abscess cavity with half-inch Nu Gauze before applying 4 x 4's over it in a wet-to-dry fashion. New medications: Bactrim 400 mg Q12H for 14 days Tendoy 7.5 Q6 Prn ibuprofen 400 mg prn Follow up with a General Surgeon of your choice: TASHI MEHTA MD [address] [facility] [address], [place] [address] JORDAN LARA MD [address] [place] [address] [address] [place] [address] Followup: Tashi Mehta MD [ACTIVE - CAN ADMIT] - 1 Week NONE,NONE [Primary Care Provider] - Jordan Lara [ACTIVE - CAN ADMIT] - 1 Week
[2023-02-05 12:58] VITALS: BP 122/61
[2023-02-05] MEDS ORDERED: SMZ./TMP. 800/160 MG TABLET PO SCH ×2 (13:00→21:00)
== END 2023-02-05 14:40 | disposition home or self-care (01) | DRG 854 ==
LOC: ER 08:52 → ERHOLD 12:27 → 2ND 18:40
PROVIDERS: ADMIT Hospitalist; ATTEND Internal Medicine
PROC: 0JDB0ZZ Extraction of Perineum Subcutaneous Tissue and Fascia, Open Approach (ICD-10-PCS; principal; 2023-01-31 18:30)
PROC: 0JBM0ZZ Excision of Left Upper Leg Subcutaneous Tissue and Fascia, Open Approach (ICD-10-PCS; 2023-02-03)
DX: A41.02 Sepsis due to Methicillin resistant Staphylococcus aureus (principal); L02.215 Cutaneous abscess of perineum; L03.116 Cellulitis of left lower limb; L02.416 Cutaneous abscess of left lower limb; N49.2 Inflammatory disorders of scrotum; R73.9 Hyperglycemia, unspecified; Z90.49 Acquired absence of other specified parts of digestive tract
CPT/HCPCS: 36415; 72193; 80048; 80053; 80202; 83036; 83605; 83735; 85025; 85610; 85730; 87040; 87070; 87075; 87077; 87186; 87205; 88304; 93005; 96365; 96366; 96367; 96375; 99285; J0295; J1100; J1170; J2001; J2175; J2250; J2270; J2405; J2543; J2704; J3010; J7030; J7040; J7120; Q9967

== ENCOUNTER → 2023-05-23 | Emergency (ER) | payer SELFPAY ==
[~2023-05-23] MED LIST: CLINDAMYCIN 900MG/D5W 900 MG/50 ML IVPB IV ONE; MORPHINE 4 MG/ML SYR ONE; NA CHLORIDE 0.9% 1,000 ML ONE; ONDANSETRON 4 MG/2 ML VIAL ONE
[2023-05-23 22:16] LABS: Hematocrit 38.6 % (39.6-49.0); Lymphocytes % 29.7 % (15.3-44.8); MCV 79.5 fL (80-100); MPV 8.1 fL (7.6-11.3); Platelets 139 thou/uL (152-406); RBC Red Blood Cell Count 4.86 M/uL (4.33-5.43)
--- NOTE | 2023-05-23 22:18 | RAD REPORT ---
EXAM DESCRIPTION: RAD - Foot Left 3 View - 05/23/2023 10:12 pm CLINICAL HISTORY: osteo eval 2nd toe Pain and swelling COMPARISON: Foot Left 3 View dated 09/13/2018 FINDINGS: Moderate soft tissue swelling affects the second toe. No finding to indicate osteomyelitis . Small plantar calcaneal spur. No fracture seen.
[2023-05-23 22:52] LABS: Albumin 3.7 g/dL (3.4-5.0); Bilirubin Total 0.4 mg/dL (0.2-1.0); Potassium 3.2 mEq/L (3.5-5.1); Protein, Total 8.1 g/dL (6.4-8.2)
[2023-05-23 22:55] LABS: Protime INR 1.09
--- NOTE | 2023-05-23 23:59 | EDPHYS ---
Physician Documentation [facility] Name: Star Hess Age: 38 yrs Sex: Male : 1985 Arrival Date: 05/23/2023 Time: 21:24 Bed 13 Private MD: ED Physician Marciano Bailey HPI: 05/23 22:04 This 38 yrs old Male presents to ER via Ambulatory with complaints of Foot sb4 Pain, Swelling of Lower Extremity. 22:04 38-year-old male who identifies as female presents with complaints of left second toe sb4 swelling, drainage, pain, and inflammation. She states that she first noticed a boil on her left medial toe about 3 days ago and she works on her feet a lot. She states that it burst last night. She denies any known fevers. She denies any known history of diabetes. She states that she frequently gets "boils "and has been admitted in the past to have surgical intervention. Historical: - Allergies: 21:46 No Known Allergies; rv - PMHx: 21:46 None; rv - PSHx: 21:46 gallbladder removal 2013; L arm SX; rv - Immunization history:: Adult Immunizations up to date. - Social history:: Smoking status: Patient denies any tobacco usage or history of. ROS: 22:04 Constitutional: Negative for fever, chills, and weight loss, sb4 22:04 Skin: Positive for abscess, cellulitis, erythema, swelling, 22:04 All other systems are negative, Exam: 22:04 Constitutional: This is a well developed, well nourished patient who is awake, alert, sb4 and in no acute distress. Head/Face: Normocephalic, atraumatic. Eyes: Extra-ocular motions intact. Periorbital areas with no swelling, redness, or edema. ENT: Mucous membranes moist. Cardiovascular: Regular rate and rhythm with a normal S1 and S2. Respiratory: Lungs have equal breath sounds bilaterally, clear to auscultation and percussion. No rales, rhonchi or wheezes noted. No increased work of breathing, no retractions or nasal flaring. Abdomen/GI: Soft, non-tender, no distension. MS/ Extremity: Pulses equal, no cyanosis. Neurovascular intact. Full, normal range of motion. 22:04 Skin: abscess, that is moderate sized, of the left second toe, with drainage, with surrounding cellulitis, malodorous discharge, cellulitis, that is moderate, on the plantar aspect of left second toe and left second toe, Vital Signs: 21:43 BP 153 / 94; Pulse 106; Resp 18; Temp 98.6; Pulse Ox 100% ; Weight 116.12 kg; Height 5 rv ft. 6 in. ; 22:00 BP 134 / 80; Pulse 87; Resp 17; Pulse Ox 99% ; jj7 23:15 BP 128 / 83; Pulse 80; Resp 19; Pulse Ox 95% ; 7 05/24 00:20 BP 132 / 81; Pulse 78; Resp 19; Pulse Ox 97% ; [facility] 05/23 21:43 Body Mass Index 41.32 (116.12 kg, 167.64 cm) rv MDM: 05/23 21:48 Patient medically screened. sb4 22:04 Differential diagnosis: cellulitis, abscess, osteomyelitis. sb4 05/24 00:01 Data reviewed: vital signs, nurses notes, lab test result(s), radiologic studies, and sb4 as a result, I will discharge patient. Consideration of Admission/Observation Escalation of care including admission/observation considered. Counseling: I had a detailed discussion with the patient and/or guardian regarding the historical points, exam findings, and any diagnostic results supporting the discharge/admit diagnosis, the presence of at least one elevated blood pressure reading (>120/80) during this emergency department visit, lab results, radiology results, the need for outpatient follow up, a general surgeon, to return to the emergency department if symptoms worsen or persist or if there are any questions or concerns that arise at home. 05/23 21:54 Order name: Blood Culture Adult (2) 05/23 21:54 Order name: CBC with Diff; Complete Time: 22:24 4 05/23 21:54 Order name: CMP; Complete Time: 22:53 4 05/23 21:54 Order name: Lactate w/ 2H reflex if indic.; Complete Time: 22:53 4 05/23 21:54 Order name: Protime (+inr); Complete Time: 22:56 4 05/23 21:54 Order name: Ptt, Activated; Complete Time: 22:56 sb4 05/23 21:54 Order name: Hemoglobin A1c sb4 05/23 22:26 Order name: Glucose, Ancillary Testing; Complete Time: 22:33 EDMS 05/23 21:54 Order name: Foot Left 3 View XRAY; Complete Time: 22:24 sb4 05/23 21:54 Order name: Accucheck; Complete Time: 22:10 sb4 05/23 21:54 Order name: IV Saline Lock - Large Bore; Complete Time: 22:08 sb4 05/23 21:54 Order name: Labs collected and sent; Complete Time: 22:08 sb4 05/23 21:54 Order name: Vital Signs; Complete Time: 22:10 sb4 05/23 23:58 Order name: Wound Care; Complete Time: 00:39 sb4 05/23 23:58 Order name: Wound dressing; Complete Time: 00:39 sb4 Administered Medications: 05/23 22:08 Drug: morphine IVP or IV 4 mg IVP once over 4 mins Route: IVP; Infused Over: 4 mins; jj7 Site: right wrist; 22:30 Follow up: Response: Marked relief of symptoms jj7 22:08 Drug: Ondansetron IVP 4 mg IVP once; over 2 minutes Route: IVP; Site: right wrist; jj7 22:30 Follow up: Response: Marked relief of symptoms jj7 23:14 Drug: NS 0.9% IV 1000 ml IV at 1 bolus Per protocol; 1000 mL bolus Route: IV; Rate: 1 jj7 bolus; Site: right wrist; 05/24 00:35 Follow up: IV Status: Completed infusion jj7 05/23 23:14 Drug: Clindamycin IVPB 900 mg IVPB once over 30 mins; (mix in 50 mL) Route: IVPB; jj7 Infused Over: 30 mins; Site: right wrist; 23:54 Follow up: IV Status: Completed infusion j7 Point of Care Testing: Blood Glucose: 22:15 Blood Glucose: 91 mg/dL; jj7 Ranges: Critical Glucose Levels:Adult <50 mg/dl or >400 mg/dl <40 mg/dl or >180 mg/dl Disposition: 05/24 01:01 Co-signature as Attending Physician, Marciano Bailey MD. rt Disposition Summary: 05/23/23 23:59 Discharge Ordered Notes: Location: Home sb4 Problem: new sb4 Symptoms: have improved sb4 Condition: Stable sb4 Diagnosis - abscess and cellulitis of left 2nd toe sb4 Followup: sb4 - With: Tashi Kahn MD - When: 2 - 3 days - Reason: Wound Recheck, Recheck today's complaints, Re-evaluation by your physician Discharge Instructions: - Discharge Summary Sheet sb4 - Skin Abscess, [id number] sb4 - Wound Care, Adult sb4 Forms: - Medication Reconciliation Form sb4 - Thank You Letter sb4 - Antibiotic Education sb4 - Prescription Opioid Use sb4 - Patient Portal Instructions sb4 - Leadership Thank You Letter sb4 Prescriptions: - Bactrim DS 800-160 mg Oral Tablet - take 1 tablet ORAL route every 12 hours for 10 days; 20 tablet; Refills: 0, sb4 Product Selection Permitted Signatures: Dispatcher [employer] Nilson Hyde, RN RN Elieen Barragan RN RN jNessa Mcpherson, PAMelissa PAMelissa sb4 Marciano Bailey MD MD rt
--- NOTE | 2023-05-23 23:59 | ER ---
Nurse's Notes [facility] Name: Star Hess Age: 38 yrs Sex: Male : 1985 Arrival Date: 05/23/2023 Time: 21:24 Bed 13 Private MD: Diagnosis: abscess and cellulitis of left 2nd toe Presentation: 05/23 21:43 Chief complaint: Patient states: PAIN AND SWELLING ON THE SIDE OF THE SECOND TOE, LEFT rv FOOT, STARTED 2-3 DAYS AGO. PUS CAME OUT EARLIER TODAY. DENIES FEVER. Coronavirus screen: At this time, the client does not indicate any symptoms associated with coronavirus-19. Ebola Screen: No symptoms or risks identified at this time. Initial Sepsis Screen: Does the patient meet any 2 criteria? No. Patient's initial sepsis screen is negative. Does the patient have a suspected source of infection? No. Patient's initial sepsis screen is negative. Risk Assessment: Do you want to hurt yourself or someone else? Patient reports no desire to harm self or others. Onset of symptoms was May 23, 2023. 21:43 Method Of Arrival: Ambulatory 21:43 Acuity: ANJANA 3 rv Triage Assessment: 21:46 General: Appears comfortable, Behavior is calm, cooperative. Pain: Complains of pain in rv left foot. Neuro: Level of Consciousness is awake, alert, obeys commands, Oriented to person, place, time, situation. Cardiovascular: Capillary refill < 3 seconds Patient's skin is warm and dry. Respiratory: Airway is patent Respiratory effort is even, unlabored. Derm: Skin is intact. Musculoskeletal: Swelling present in left foot. Historical: - Allergies: 21:46 No Known Allergies; rv - PMHx: 21:46 None; rv - PSHx: 21:46 gallbladder removal 2013; L arm SX; rv - Immunization history:: Adult Immunizations up to date. - Social history:: Smoking status: Patient denies any tobacco usage or history of. Screenin:47 [facility] ED Fall Risk Assessment (Adult) History of falling in the last 3 months, rv including since admission No falls in past 3 months (0 pts) Score/Fall Risk Level 0 - 2 = Low Risk Oriented to surroundings, Maintained a safe environment, Educated pt \T\ family on fall prevention, incl call for assistance when getting out of bed, Assessed \T\ reinforced patient's understanding of fall precautions. Abuse screen: Denies threats or abuse. Denies injuries from another. Nutritional screening: No deficits noted. Tuberculosis screening: No symptoms or risk factors identified. Assessment: 22:00 General: Appears in no apparent distress. comfortable, Behavior is calm, cooperative, jj7 appropriate for age. Derm: Abscess. Vital Signs: 21:43 BP 153 / 94; Pulse 106; Resp 18; Temp 98.6; Pulse Ox 100% ; Weight 116.12 kg; Height 5 rv ft. 6 in. ; 22:00 BP 134 / 80; Pulse 87; Resp 17; Pulse Ox 99% ; jj7 23:15 BP 128 / 83; Pulse 80; Resp 19; Pulse Ox 95% ; jj7 05/24 00:20 BP 132 / 81; Pulse 78; Resp 19; Pulse Ox 97% ; jj7 05/23 21:43 Body Mass Index 41.32 (116.12 kg, 167.64 cm) rv ED Course: 05/23 21:27 Patient arrived in ED. jj6 21:43 Arm band placed on right wrist. rv 21:45 Nessa Ndiaye PA-C is PHCP. sb4 21:45 Marciano Bailey MD is Attending Physician. sb4 21:45 Inserted saline lock: 20 gauge in right forearm, using aseptic technique. Blood rv collected. 21:46 Triage completed. rv 21:47 Patient has correct armband on for positive identification. Client placed on continuous rv cardiac and pulse oximetry monitoring. NIBP monitoring applied. 21:59 Eileen Gonsales, RN is Primary Nurse. jj7 22:08 Blood Culture Adult (2) Sent. jj7 22:08 CBC with Diff Sent. jj7 22:08 CMP Sent. jj7 22:08 Lactate w/ 2H reflex if indic. Sent. jj7 22:08 Protime (+inr) Sent. jj7 22:08 Ptt, Activated Sent. jj7 22:08 Hemoglobin A1c Sent. jj7 22:14 Foot Left 3 View XRAY In Process Unspecified. EDMS 23:58 Tashi Kahn MD is Referral Physician. sb4 05/24 00:38 No provider procedures requiring assistance completed. IV discontinued, intact, jj7 bleeding controlled, No redness/swelling at site. Pressure dressing applied. Administered Medications: 05/23 22:08 Drug: morphine IVP or IV 4 mg IVP once over 4 mins Route: IVP; Infused Over: 4 mins; jj7 Site: right wrist; 22:30 Follow up: Response: Marked relief of symptoms 7 22:08 Drug: Ondansetron IVP 4 mg IVP once; over 2 minutes Route: IVP; Site: right wrist; jj7 22:30 Follow up: Response: Marked relief of symptoms 7 23:14 Drug: NS 0.9% IV 1000 ml IV at 1 bolus Per protocol; 1000 mL bolus Route: IV; Rate: 1 jj7 bolus; Site: right wrist; 05/24 00:35 Follow up: IV Status: Completed infusion j7 05/23 23:14 Drug: Clindamycin IVPB 900 mg IVPB once over 30 mins; (mix in 50 mL) Route: IVPB; jj7 Infused Over: 30 mins; Site: right wrist; 23:54 Follow up: IV Status: Completed infusion jj7 Medication: 21:47 VIS not applicable for this client. Point of Care Testing: Blood Glucose: : Blood Glucose: 91 mg/dL; jj7 Ranges: Outcome: 23:59 Discharge ordered by MD. [email or web address] 05/24 00:38 Discharged to home ambulatory, with friend, ivana Condition: improved Discharge instructions given to patient, Instructed on discharge instructions, follow up and referral plans. medication usage, Demonstrated understanding of instructions, follow-up care, medications, Prescriptions given X 1, 01:00 Patient left the ED. jj7 Signatures: Dispatcher [employer] EDVT Nilson Cantrell RN RN Kate Su jj6 Eileen Gonsales RN RN jNessa Mcpherson, PA-C PA-C sb4 Corrections: (The following items were deleted from the chart) 05/23 21:47 21:43 Acuity: ANJANA 4 rv rv 05/24 00:51 05/23 23:00 BP 128 / 83; Pulse 80bpm; Resp 19bpm; Pulse Ox 95%; jj7 jj7
[2023-05-24 01:22] VITALS: BP 132/81; TEMP 98.6; O2SAT 97
== END ==
LOC: ER 21:24
DX: L03.032 Cellulitis of left toe (principal)
CPT/HCPCS: 36415; 80053; 82947; 83605; 85025; 85610; 85730; 87040; 96361; 96365; 96375; 99284; J2405; J7030

== ENCOUNTER → 2023-05-27 | Emergency (ER) | payer SELFPAY ==
--- NOTE | 2023-05-27 17:15 | ER ---
Nurse's Notes [facility] Name: Star Hess Age: 38 yrs Sex: Male : 1985 Arrival Date: 05/27/2023 Time: 16:40 Bed 11 Private MD: Diagnosis: Cellulitis of left lower limb Presentation: 05/27 16:54 Chief complaint: Patient states: Was prescribed bactrim last week for a wound on L ph foot, began experiencing itching and swelling to eyes, called pharmacy and was instructed to d/c Bactrim and take benadryl, allergic symptoms have resolved, needs script for new antibiotic. Coronavirus screen: Vaccine status: Patient reports receiving the 1st dose of the Covid vaccine. Ebola Screen: No symptoms or risks identified at this time. 16:54 Method Of Arrival: Ambulatory 16:54 Acuity: ANJANA 4 ph 17:03 Initial Sepsis Screen: Does the patient meet any 2 criteria? No. Patient's initial kc6 sepsis screen is negative. Does the patient have a suspected source of infection? No. Patient's initial sepsis screen is negative. Risk Assessment: Do you want to hurt yourself or someone else?. Onset of symptoms was May 27, 2023. 17:35 Anaphylaxis evaluation, no signs or symptoms of anaphylaxis were noted. kc6 Historical: - Allergies: 16:57 Bactrim; ph - PSHx: 16:57 gallbladder removal 2013; L arm SX; ph - Immunization history:: Adult Immunizations unknown. - Social history:: Smoking status: Patient denies any tobacco usage or history of. Screenin:02 [facility] ED Fall Risk Assessment (Adult) History of falling in the last 3 months, kc6 including since admission No falls in past 3 months (0 pts) Confusion or Disorientation No (0 pts) Intoxicated or Sedated No (0 pts) Impaired Gait No (0 pts) Mobility Assist Device Used No (0 pt) Altered Elimination No (0 pt) Score/Fall Risk Level 0 - 2 = Low Risk. Abuse screen: Denies threats or abuse. Denies injuries from another. Nutritional screening: No deficits noted. Tuberculosis screening: No symptoms or risk factors identified. Assessment: 17:04 General: Appears in no apparent distress. comfortable, well groomed, well developed, kc6 Behavior is calm, cooperative, appropriate for age. Neuro: Level of Consciousness is awake, alert, obeys commands, Oriented to person, place, time, situation, Appropriate for age. Cardiovascular: Capillary refill < 3 seconds. Respiratory: Airway is patent Trachea midline Respiratory effort is even, unlabored, Respiratory pattern is regular, symmetrical, Breath sounds are clear bilaterally. Vital Signs: 16:54 BP 155 / 95; Pulse 95; Resp 18; Temp 98.1; Pulse Ox 99% on R/A; Weight 113.4 kg; Height ph 5 ft. 6 in. ; 16:54 Body Mass Index 40.35 (113.40 kg, 167.64 cm) ED Course: 16:40 Patient arrived in ED. rg4 16:51 Michael Girard MD is Attending Physician. [facility] 16:57 Triage completed. 16:57 Arm band placed on Patient placed in an exam room. 17:01 [facility] sb[facility] 17:02 Sangeetha Guerrero, BRISEYDA is Primary Nurse. kc6 17:02 Patient maintains SpO2 saturation greater than 95% on room air. kc6 17:03 Patient has correct armband on for positive identification. Bed in low position. Call kc6 light in reach. Side rails up X 1. Client placed on continuous cardiac and pulse oximetry monitoring. NIBP monitoring applied. 17:34 No provider procedures requiring assistance completed. Patient did not have IV access kc6 during this emergency room visit. Administered Medications: 17:07 Drug: Clindamycin PO 300 mg PO once Route: PO; kc6 17:26 Follow up: Response: No adverse reaction 6 Medication: 17:35 VIS not applicable for this client. kc6 Outcome: 17:15 Discharge ordered by . sb4 17:35 Discharged to home ambulatory, kc6 17:35 Condition: good 17:35 Discharge instructions given to patient, Instructed on discharge instructions, follow up and referral plans. medication usage, Demonstrated understanding of instructions, follow-up care, medications, Prescriptions given X 1, 17:35 Patient left the ED. kc6 Signatures: Michael Girard MD MD cha Hall, Patricia, RN RN Tiarra Xavier rg4 Sangeetha Guerrero RN RN [facility] Nessa Ndiaye PA-C PA-C [facility]
--- NOTE | 2023-05-27 17:15 | EDPHYS ---
Physician Documentation [facility] Name: Star Hess Age: 38 yrs Sex: Male : 1985 Arrival Date: 05/27/2023 Time: 16:40 Bed 11 Private MD: ED Physician Michael Girard HPI: 05/27 17:04 This 38 yrs old Male presents to ER via Ambulatory with complaints of Abscess, sb4 Allergic Reaction. 17:05 Patient seen by me 3 days ago for cellulitis and abscess of left second toe. I started sb4 her on Bactrim. She states that her infection has improved however she developed an allergic reaction to the Bactrim. She has been taking Benadryl and her allergic reaction symptoms have subsided but she is requesting a new antibiotic. Historical: - Allergies: 16:57 Bactrim; ph - PSHx: 16:57 gallbladder removal 2013; L arm SX; ph - Immunization history:: Adult Immunizations unknown. - Social history:: Smoking status: Patient denies any tobacco usage or history of. ROS: 17:05 Constitutional: Negative for fever, chills, and weight loss, sb4 17:05 Skin: Positive for abscess, cellulitis, 17:05 All other systems are negative, Exam: 17:05 Constitutional: This is a well developed, well nourished patient who is awake, alert, sb4 and in no acute distress. Head/Face: Normocephalic, atraumatic. Eyes: Extra-ocular motions intact. Periorbital areas with no swelling, redness, or edema. ENT: Mucous membranes moist. MS/ Extremity: Pulses equal, no cyanosis. Neurovascular intact. Full, normal range of motion. Neuro: Awake and alert, GCS 15, oriented to person, place, time, and situation. Motor strength 5/5 in all extremities. Sensory grossly intact. Vital Signs: 16:54 BP 155 / 95; Pulse 95; Resp 18; Temp 98.1; Pulse Ox 99% on R/A; Weight 113.4 kg; Height ph 5 ft. 6 in. ; 16:54 Body Mass Index 40.35 (113.40 kg, 167.64 cm) ph MDM: 16:51 [facility] 17:05 Data reviewed: vital signs, nurses notes, and as a result, I will discharge patient. ED sb4 course: will give 1 dose of clindamycin here to ensure to reaction then dispo with script for clinda. Administered Medications: 17:07 Drug: Clindamycin PO 300 mg PO once Route: PO; kc6 17:26 Follow up: Response: No adverse reaction kc6 Disposition Summary: 05/27/23 17:15 Discharge Ordered Notes: Location: Home sb4 Problem: new sb4 Symptoms: are unchanged sb4 Condition: Stable sb4 Diagnosis - Cellulitis of left lower limb sb4 Followup: sb4 - With: Emergency Department - When: As needed - Reason: Trouble breathing, Worsening of condition Discharge Instructions: - Discharge Summary Sheet sb4 - Cellulitis, Adult sb4 Forms: - Thank You Letter sb4 - Antibiotic Education sb4 - Patient Portal Instructions sb4 - Leadership Thank You Letter sb4 Prescriptions: - Clindamycin HCl 300 mg Oral Capsule - take 1 capsule ORAL route every 6 hours for 10 days; 40 capsule; Refills: 0, sb4 Product Selection Permitted Signatures: Michael Girard MD MD cha Hall, Patricia RN RN ph Sangeetha Guerrero RN RN kc6 Nessa Ndiaye, ELYSIA PAMelissa sb4
[2023-05-27 17:49] VITALS: BP 155/95; TEMP 98.1; O2SAT 99
== END ==
LOC: ER 16:40
DX: L03.116 Cellulitis of left lower limb (principal); Z88.1 Allergy status to other antibiotic agents; Z90.49 Acquired absence of other specified parts of digestive tract

== ENCOUNTER 2024-12-26 19:09 | Inpatient (IN) | payer SELFPAY ==
--- OUTSIDE RECORDS SUMMARY | 2024-12-26 19:12 | XMS REPORT | Continuity of Care Document ---
Author Name Unknown Address [address] [place] [address] Organization [facility] Address 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 Role Phone Pcp, Patient Does Not Have A Primary Care Physic rickey Heber Ortiz MD Attending Clinician [phone] Allergies, Adverse Reactions, Alerts Allergy Name Allergy Type Status Severity Reaction(s) Onset Date Inactive Date Treating Clinician Comments Source NO KNOWN ALLERGIE S Drug Class Active [facility] Social History Social Habit Start Date Stop Date Quantity Comments Source Sexual orientation U [facility] Sex assigned at 1985 00:00:00 1985 00:00:00 [facility] Smoking Status Start Date Stop Date Source Tobacco smoking consumption unknown [facility] Medications Ordered Medication Name Filled Medication Name Start Date Stop Date Current Medication? Ordering Clinician Indication Dosage Frequency Signature (SIG) Comments Components Source famotidine (PEPCID (PF)) 20 mg in NaCl 0.9% (NS) 5 mL IV push 11-05 14:45: 00 11-05 15:27 :00 No 20mg 20 mg, Intravenou s, ONCE, 1 dose, On Karma 11/05/24 at 0945, Administer over 2 Minutes, 5 mL [facility] diphenhydrA MINE (BENADRYL) injection 25 mg 11-05 14:45: 00 11-05 15:25 :00 No 25mg 25 mg, Slow IV Push, ONCE, 1 dose, On Karma 11/05/24 at 0945, STAT [facility] dexamethaso ne sod phos PF injection 8 mg 11-05 14:45: 00 11-05 15:25 :00 No 8mg 8 mg, Slow IV Push, ONCE, 1 dose, On Karma 11/05/24 at 0945, 1 mL [facility] methylPREDN ISolone 4 mg tablets 11-05 00:00: 00 Yes [id number] Take by mouth SEE-INSTRU CTIONS. follow package directions [facility] hydrOXYzine 25 mg tablet 11-05 00:00: 00 Yes [id number] 25mg Take 1 tablet by mouth every 6 hours. [facility] neomycin-po lymyxin-hyd rocortisone 3.5-10,000- 1 mg/mL-unit/ mL-% otic susp 11-05 00:00: 00 Yes [id number] 3[drp] Place 3 Drops in right ear 4 times daily. [facility] Vital Signs Vital Name Observation Time Observation Value Comments S our Systolic blood pressure 2024-11-05 16:00:00 123 mm[Hg] [facility] Diastolic blood pressure 2024-11-05 16:00:00 73 mm[Hg] [facility] Heart rate 2024-11-05 16:00:00 93 /min [facility] Body temperature 2024-11-05 16:00:00 36.11 Ellyn [facility] Respiratory rate 2024-11-05 16:00:00 18 /min [facility] Oxygen saturation in Arterial blood by Pulse oximetry 2024-11-05 16:00:00 97 /min [facility] Body height 2024-11-05 14:11:00 167.6 cm [facility] Body weight 2024-11-05 14:11:00 104.327 kg [facility] BMI 2024-11-05 14:11:00 37.12 kg/m2 [facility] Encounters Start Date/Time End Date/Time Encounter Type Admission Type Attending Clinicians Care Facility Care Department Encounter ID Source 2024-11-05 09:13:00 2024-11-05 11:43:00 Emergency X Heber Ortiz [facility] [id number] [facility] Notes Date/Time Note Provider Source 2024-11-05 11:42:40 Pt discharged with diagnosis of allergic reaction. Printed and verbal instructions reviewed with and given to pt. Prescriptions given x 3. Pt verbalized understanding of teaching, medication, and recommended follow-up. Denies questions or concerns at this time. Pt ambulatory at discharge. Appears in no apparent distress. No ataxia noted. Accompanied by boyfriend. [facility] 2024-11-05 09:11:18 Pt to ED [place] generalized rash starting this morning. No airway involvement. Rash accompanied by itching. Recently started Amoxicillin. T [facility]
[2024-12-26 19:59] LABS: Influenza A Ag Negative; Influenza B Ag Negative; SARS-CoV-2 Antigen Rapid Res Negative (Negative)
--- NOTE | 2024-12-26 20:41 | RAD REPORT ---
EXAMINATION: ONE VIEW CHEST XR CLINICAL INDICATION: COUGH TECHNIQUE: Frontal chest projection is submitted. Examination is limited by patient positioning and t echnique. COMPARISON: 11/15/2021 FINDINGS: Patchy airspace opacities are present in both lungs likely multifocal infiltrate/pneumonia. The heart is upper limit of normal in size. No displaced fractures identified.
[2024-12-26] MEDS ORDERED: ALBUTEROL 2.5 MG/3 ML NEB SOL ONE (20:59)
[2024-12-26] MEDS ORDERED: IPRATROPIUM BROM 0.5MG/2.5ML ONE (21:00)
[2024-12-26] MEDS ORDERED: ONDANSETRON 4 MG/2 ML VIAL ONE (21:00)
[2024-12-26 21:28] LABS: Absolute Lymphocytes (CBC) 1.1 K/uL (0.7-4.9); Hematocrit 38.0 % (39.6-49.0); Hemoglobin 12.7 g/dL (13.6-17.9); MCH 25.7 pg (27.0-35.0); MCHC 33.4 g/dL (32.0-36.0); MCV 76.9 fL (80-100); MPV 7.3 fL (7.6-11.3); Nucleated RBC Absolute Count 0.0 (0-0); Nucleated Red Blood Cells % 0.1 % (0-0); RBC Red Blood Cell Count 4.95 M/uL (4.33-5.43); White Blood Count 9.00 thou/uL (4.3-10.9)
[2024-12-26 21:43] LABS: PT Prothrombin Time 18.1 SECONDS (10-13.0); PTT, Activated Partial Thromb 33.0 SECONDS (27.2-37.4); Protime INR 1.62
[2024-12-26 21:54] LABS: ALT/SGPT 33.0 U/L (16-61); AST/SGOT 34.0 U/L (15-37); Albumin 2.6 g/dL (3.4-5.0); Albumin/Globulin Ratio 0.5 (1.1-1.8); Alkaline Phosphatase 82.0 U/L (45-117); Anion Gap 10.0 mEq/L (5.0-15.0); BUN Blood Urea Nitrogen 7.0 mg/dL (7-18); Globulin 5.2 g/dL (2.3-3.5); Glucose Level 107.0 mg/dL (74-106); NT PRO-BNP 66.0 pg/mL (<125); Potassium 3.0 mEq/L (3.5-5.1); Troponin High Sensitivity 8.1 pg/mL (<58.9)
--- NOTE | 2024-12-26 22:17 | ER ---
Nurse's Notes [facility] Name: Star Hess Age: 39 yrs Sex: Male : 1985 Arrival Date: 12/26/2024 Time: 19:09 Bed 15 Private MD: Diagnosis: Pneumonia in diseases classified elsewhere;Sepsis, unspecified organism Presentation: 12/26 19:20 Chief complaint: Patient states: pt complaining of cough, abdominal pain and diarrhea ss12 been going since couple weeks. pt is been having fever since couple days and today around 1400 had fever and took Tylenol and ibuprofen. Coronavirus screen: Client denies travel out of the [place] in the last 14 days. Client presents with at least one sign or symptom that may indicate coronavirus-19. Ebola Screen: Patient negative for fever greater than or equal to 101.5 degrees Fahrenheit, and additional compatible Ebola Virus Disease symptoms Patient denies exposure to infectious person. Patient denies travel to an Ebola-affected area in the 21 days before illness onset. 19:20 Method Of Arrival: EMS: [place] [id number] 19:43 Initial Sepsis Screen: Does the patient meet any 2 criteria? HR > 90 bpm. Does the ss12 patient have a suspected source of infection? No. Patient's initial sepsis screen is negative. Risk Assessment: Do you want to hurt yourself or someone else? Patient reports no desire to harm self or others. Onset of symptoms. 19:43 Acuity: ANJANA 3 ss12 Triage Assessment: 19:30 General: Appears in no apparent distress. Behavior is calm, cooperative, quiet. ss12 General: Appears Behavior is. Pain: Denies pain. Pain: Denies pain. EENT: No deficits noted. No signs and/or symptoms were reported regarding the EENT system. Neuro: No deficits noted. Level of Consciousness is awake, alert, obeys commands, Oriented to person, place, time, situation. Cardiovascular: No deficits noted. Patient's skin is warm and dry. Respiratory: Reports cough that is productive, with pink tinged sputum. Respiratory: Airway is patent Respiratory effort is even, unlabored, Respiratory pattern is regular, symmetrical. GI: Abdomen is flat, round non-distended, Abd is soft and non tender X 4 quads. Reports diarrhea. : No deficits noted. No signs and/or symptoms were reported regarding the genitourinary system. Derm: No deficits noted. No signs and/or symptoms reported regarding the dermatologic system. Derm: Skin is intact, Skin is dry, Skin is pink, warm \T\ dry. Musculoskeletal: No deficits noted. No signs and/or symptoms reported regarding the musculoskeletal system. 19:51 Respiratory: Onset: The symptoms/episode began/occurred gradually, the patient has mild ss12 shortness of breath. Historical: - Allergies: 19:44 Bactrim; ss12 - PSHx: 19:44 gallbladder removal 2013; L arm SX; ss12 - Immunization history:: Adult Immunizations not immunized. - Infectious Disease History:: Denies. - Social history:: Smoking status: Patient/guardian denies using tobacco, Stopped _ months ago 6. Screenin:50 [facility] ED Fall Risk Assessment (Adult) History of falling in the last 3 months, ss12 including since admission No falls in past 3 months (0 pts). [facility] ED Fall Risk Assessment (Adult) Confusion or Disorientation No (0 pts) Intoxicated or Sedated No (0 pts) Impaired Gait No (0 pts) Mobility Assist Device Used No (0 pt) Altered Elimination No (0 pt) Score/Fall Risk Level 0 - 2 = Low Risk Oriented to surroundings, Maintained a safe environment, Educated pt \T\ family on fall prevention, incl call for assistance when getting out of bed, Assessed \T\ reinforced patient's understanding of fall precautions. Abuse screen: Denies threats or abuse. Denies injuries from another. Nutritional screening: No deficits noted. Tuberculosis screening: No symptoms or risk factors identified. Assessment: 19:20 Respiratory: Airway is patent Respiratory effort is even, unlabored, Respiratory ss12 pattern is regular, symmetrical, Breath sounds are clear bilaterally. 19:52 Cardiovascular: Rhythm is sinus tachycardia. ss12 20:16 Reassessment: Patient appears in no apparent distress at this time. Patient and/or ss12 family updated on plan of care and expected duration. Pain level reassessed. Patient is alert, oriented x 3, equal unlabored respirations, skin warm/dry/pink. 21:20 Reassessment: Patient appears in no apparent distress at this time. Patient and/or ss12 family updated on plan of care and expected duration. Pain level reassessed. Patient is alert, oriented x 3, equal unlabored respirations, skin warm/dry/pink. 22:12 Reassessment: Patient appears in no apparent distress at this time. Patient and/or ss12 family updated on plan of care and expected duration. Pain level reassessed. Patient is alert, oriented x 3, equal unlabored respirations, skin warm/dry/pink. 23:12 Reassessment: Patient appears in no apparent distress at this time. Patient and/or ss12 family updated on plan of care and expected duration. Pain level reassessed. Patient is alert, oriented x 3, equal unlabored respirations, skin warm/dry/pink. Vital Signs: 19:20 BP 138 / 69; Pulse 120; Resp 18; Temp 98.6; Pulse Ox 96% on R/A; 12 19:20 Weight 99.79 kg; Height 5 ft. 6 in. ; ss12 20:14 BP 103 / 64; Pulse 113; Resp 16 S; Pulse Ox 96% on R/A; 12 21:22 BP 118 / 76; Pulse 110; Resp 16; Pulse Ox 100% on R/A; 12 22:00 BP 127 / 79; Pulse 119; Resp 16; Pulse Ox 99% on R/A; ss12 23:00 BP 132 / 87; Pulse 121; Resp 16; Pulse Ox 100% on R/A; [facility] 12/27 01:00 BP 127 / 52; Pulse 98; Resp 16; Temp 99.1; Pulse Ox 98% on R/A; 12 12/26 19:20 Body Mass Index 35.51 (99.79 kg, 167.64 cm) [facility] ED Course: 12/26 19:20 Patient arrived in ED. vc1 19:21 Michael Vaz PA-C is PHCP. cp 19:21 Bhanu Salcedo DO is Attending Physician. cp 19:31 Ana Perez, RN is Primary Nurse. ss12 19:44 Triage completed. ss12 19:51 Arm band placed on right wrist. ss12 19:51 Patient has correct armband on for positive identification. Provided Education on: plan 12 of care discussed with the patient. 19:51 No provider procedures requiring assistance completed. ss12 19:53 COVID-19 Ag + Flu A+B Ag Sent. ss12 20:38 XRAY Chest (1 view) In Process Unspecified. EDMS 21:00 Inserted saline lock: 20 gauge in left antecubital area, using aseptic technique. Blood ss12 collected. Flushed with 10 mL NS. 21:14 EKG done, by engineering technician parking. reviewed by Michael Vaz PA-C. ts3 21:20 BNP Sent. ss12 21:20 Blood Culture Adult (2) Sent. ss12 21:20 CBC with Diff Sent. ss12 21:20 CMP Sent. ss12 21:20 Lactate w/ 2H reflex if indic. Sent. ss12 21:20 Protime (+inr) Sent. ss12 21:20 Ptt, Activated Sent. ss12 21:20 Troponin HS Sent. ss12 22:16 Santos García MD is Hospitalizing Provider. cp 23:01 CT Chest For PE Angio In Process Unspecified. EDSD 12/27 01:46 Patient admitted, IV remains in place. ss12 Administered Medications: 12/26 21:00 Drug: Ondansetron IVP 4 mg IVP once; over 2 minutes Route: IVP; Site: left antecubital; [facility] 21:00 Drug: Albuterol Inhalation 2.5 mg Inhalation once Route: Inhalation; 12 21:00 Drug: Ipratropium Inhalation Aerosol 0.5 mg Inhalation once Route: Inhalation; 12 22:00 Drug: NS 0.9% IV 1000 ml IV at 1 bolus Per protocol; to be given as a bolus over 60 ss12 minutes Route: IV; Rate: 1 bolus; Site: left antecubital; 12/27 00:10 Follow up: IV Status: Completed infusion; IV Intake: 1000ml [facility] 12/26 22:00 Drug: Rocephin IV 1 grams IV at calculated rate once; Given slow IV push per pharmacy 12 instructions Route: IV; Rate: calculated rate; Site: left antecubital; 12/27 00:10 Follow up: IV Status: Completed infusion; IV Intake: 10ml [facility] 12/26 22:30 Drug: Zithromax IVPB 500 mg IVPB once over 1 hrs; mix in 250 mL NS Route: IVPB; Infused [facility] Over: 1 hrs; Site: left antecubital; 12/27 00:10 Follow up: IV Status: Completed infusion; IV Intake: 250ml [facility] 12/26 22:30 Drug: NS 0.9% IV 1000 ml IV at 1000 ml once; to be given as a bolus over 60 minutes ss12 Route: IV; Rate: 1000 ml; Site: left antecubital; 12/27 01:46 Follow up: IV Status: Completed infusion; IV Intake: 1000ml ss12 12/26 22:30 Drug: Potassium PO Effervescent Tablet 50 mEq PO once; dissolve in 4 ounces of water or ss12 juice Route: PO; 12/27 00:10 Follow up: Response: No adverse reaction ss12 01:00 Drug: vancoMYCIN IVPB 15 mg/kg IVPB once; once over 2 hrs; not to exceed 2 grams; (mix ss12 in 250 to 500 mL NS) Route: IVPB; Site: left antecubital; Medication: 12/26 19:51 VIS not applicable for this client. ss12 Intake: 12/27 00:10 IV: 250ml; Total: 250ml. ss12 00:10 IV: 10ml; Total: 260ml. ss12 00:10 IV: 1000ml; Total: 1260ml. ss12 01:46 IV: 1000ml; Total: 2260ml. ss12 Outcome: 12/26 22:16 Decision to Hospitalize by Provider. cp 12/27 01:45 Admitted to Tele accompanied by nurse, room 417, ss12 Condition: stable 01:47 Patient left the ED. ss12 Signatures: Dispatcher [employer] EDMS Michael Vaz PA-C PA-C cp Calcote, Vanessa, RN RN vc1 Trisha Triana ts3 Ana Perez RN RN ss12 Corrections: (The following items were deleted from the chart) 12/26 20:16 19:52 Respiratory: Airway is patent Respiratory effort is even, unlabored, Respiratory ss12 pattern is regular, symmetrical, Breath sounds are clear bilaterally. ss12 21:19 20:40 Ipratropium Inhalation Aerosol 0.5 mg Inhalation ss12 ss12
--- NOTE | 2024-12-26 22:17 | EDPHYS ---
Physician Documentation [facility] Name: Star Hess Age: 39 yrs Sex: Male : 1985 Arrival Date: 12/26/2024 Time: 19:09 Bed 15 Private MD: ED Physician Bhanu Salcedo HPI: 12/26 19:33 This 39 yrs old Male presents to ER via EMS with complaints of Productive cp Cough, Fever, Abdominal Pain. 19:33 The patient or guardian reports cough, described as moderate, difficulty breathing. cp 19:33 Onset: The symptoms/episode began/occurred 2 week(s) ago. Associated signs and cp symptoms: Pertinent positives: diarrhea, fever, Pertinent negatives: vomiting. Severity of symptoms: in the emergency department the symptoms are unchanged despite home interventions. Historical: - Allergies: 19:44 Bactrim; ss12 - PSHx: 19:44 gallbladder removal 2013; L arm SX; ss12 - Immunization history:: Adult Immunizations not immunized. - Infectious Disease History:: Denies. - Social history:: Smoking status: Patient/guardian denies using tobacco, Stopped _ months ago 6. ROS: 19:35 Constitutional: Positive for body aches, fever, cp 19:35 Eyes: Negative for injury, pain, redness, and discharge, cp 19:35 ENT: Negative for drainage from ear(s), ear pain, difficulty swallowing, difficulty handling secretions, 19:35 Cardiovascular: Negative for chest pain, 19:35 Respiratory: Positive for cough, "sounds productive", shortness of breath, 19:35 Abdomen/GI: Positive for abdominal pain, nausea, diarrhea, 19:35 Neuro: Negative for altered mental status, 19:35 All other systems are negative, Exam: 19:40 Head/Face: Normocephalic, atraumatic. cp 19:40 Constitutional: The patient appears in no acute distress, alert, awake, non-diaphoretic, non-toxic, well developed, well nourished, obviously ill, uncomfortable, 19:40 Eyes: Periorbital structures: appear normal, Pupils: equal, round, and reactive to light and accomodation, Extraocular movements: intact throughout, Conjunctiva: normal, no exudate, no injection, Sclera: no appreciated abnormality, Lids and lashes: appear normal, bilaterally, 19:40 ENT: External ear(s): are unremarkable, Nose: is normal, Mouth: Lips: moist, Oral mucosa: moist, Posterior pharynx: Airway: no evidence of obstruction, patent, erythema, that is mild, exudate, is not appreciated, 19:40 Neck: ROM/movement: Meningeal signs: are not present, nuchal rigidity, is not appreciated, 19:40 Chest/axilla: Inspection: normal, 19:40 Cardiovascular: Rate: tachycardic, Rhythm: regular, Edema: is not appreciated, JVD: is not appreciated, 19:40 Respiratory: mild respiratory distress is noted, Respirations: labored breathing, that is moderate, Breath sounds: bronchial sounds, that are mild, are heard diffusely, decreased breath sounds, are not appreciated, stridor, is not appreciated, 19:40 Abdomen/GI: Inspection: abdomen appears normal, Palpation: soft, in all quadrants, mild abdominal tenderness, in all quadrants, rebound tenderness, is not appreciated, 19:40 Back: CVA tenderness, is absent, 19:40 Skin: cellulitis, is not appreciated, no rash present. 19:40 Neuro: Orientation: to person, place \\T\\ time. Mentation: is normal, 21:15 ECG was reviewed by the Attending Physician. Vital Signs: 19:20 BP 138 / 69; Pulse 120; Resp 18; Temp 98.6; Pulse Ox 96% on R/A; [facility] 19:20 Weight 99.79 kg; Height 5 ft. 6 in. ; [facility] 20:14 BP 103 / 64; Pulse 113; Resp 16 S; Pulse Ox 96% on R/A; [facility] 21:22 BP 118 / 76; Pulse 110; Resp 16; Pulse Ox 100% on R/A; [facility] 22:00 BP 127 / 79; Pulse 119; Resp 16; Pulse Ox 99% on R/A; [facility] 23:00 BP 132 / 87; Pulse 121; Resp 16; Pulse Ox 100% on R/A; [facility] 21 01:00 BP 127 / 52; Pulse 98; Resp 16; Temp 99.1; Pulse Ox 98% on R/A; [facility] 12/26 19:20 Body Mass Index 35.51 (99.79 kg, 167.64 cm) [facility] MDM: 12/26 19:21 Medical Screening Exam initiated cp 12/27 18:47 Differential Diagnosis: Influenza Upper Respiratory Infection Pneumonia Other Pulmonary tt7 embolism, pneumothorax, pulmonary edema. Data reviewed: vital signs, nurses notes, lab test result(s), cardiac enzymes, CBC, electrolytes, Flu: hepatic panel, urinalysis, EKG, radiologic studies, CT scan, plain films. Consideration of Admission/Observation Patient was admitted/placed on observation. ED course: 39-year-old male with productive cough, fever, and abdominal discomfort for approximately 1 week, vital signs are stable, patient received standard laboratory workup including EKG and troponin, due to concern for potential pulmonary embolism CT angiogram of the chest was ordered, blood cultures were also obtained, patient was resuscitated with IV fluid boluses, chest x-ray showed findings concerning for pneumonia, patient was started on ceftriaxone and azithromycin,, CT angiogram further characterize these findings with evidence of cavitary lesions concerning for potential tuberculosis infection or sequela of septic emboli, I added additional set of blood cultures for endocarditis, added MRSA coverage with vancomycin, and ordered QuantiFERON gold tuberculosis testing, the patient was admitted to the hospital for further evaluation and treatment. 12/26 19:28 Order name: COVID-19 Ag + Flu A+B Ag; Complete Time: 21:40 12/26 20:36 Order name: BNP; Complete Time: 22:06 12/26 20:36 Order name: Blood Culture Adult (2) 12/26 20:36 Order name: CBC with Diff; Complete Time: 21:40 12/26 21:40 Interpretation: Normal except: HGB 12.7; HCT 38.0; MCV 76.9; MCH 25.7; PLT 500; MPV cp 7.3; ARASH% 78.9; LYM% 12.0. 12/26 20:36 Order name: CMP; Complete Time: 22:06 12/26 22:06 Interpretation: Normal except: NA 135; K 3.0; GLUC 107; ALB 2.6; GLOB 5.2; A/G 0.5. 12/26 20:36 Order name: Lactate w/ 2H reflex if indic.; Complete Time: 22:06 12/26 22:06 Interpretation: Reviewed. 12/26 20:36 Order name: Protime (+inr); Complete Time: 21:51 12/26 20:36 Order name: Ptt, Activated; Complete Time: 21:51 cp 12/26 20:36 Order name: Troponin HS; Complete Time: 22:06 cp 12/26 20:36 Order name: UA Rfx Benitez Cult if indicated; Complete Time: 23:25 cp 12/26 21:24 Order name: Glucose, Ancillary Testing; Complete Time: 21:40 EDMS 12/26 23:28 Order name: Urine Culture EDMS 12/26 23:48 Order name: Blood Culture Adult (2) tt7 12/27 00:52 Order name: CBC with Automated Diff EDMS 12/27 00:52 Order name: CBC with Automated Diff EDMS 12/27 00:52 Order name: Comprehensive Metabolic Panel EDMS 12/27 00:52 Order name: Comprehensive Metabolic Panel EDMS 12/27 01:00 Order name: Acid Fast Bacilli Culture EDMS 12/27 01:00 Order name: QUANTIFERON TB GOLD PLUS EDMS 12/26 19:28 Order name: XRAY Chest (1 view); Complete Time: 21:40 cp 12/26 22:14 Order name: CT Chest For PE Angio cp 12/26 20:36 Order name: Accucheck; Complete Time: 21:14 cp 12/26 20:36 Order name: Cardiac monitoring; Complete Time: 21:14 cp 12/26 20:36 Order name: EKG - Nurse/Tech; Complete Time: 21:14 cp 12/26 20:36 Order name: IV Saline Lock - Large Bore; Complete Time: 21:14 cp 12/26 20:36 Order name: Labs collected and sent; Complete Time: 21:14 cp 12/26 20:36 Order name: O2 Per Protocol; Complete Time: 20:39 cp 12/26 20:36 Order name: O2 Sat Monitoring; Complete Time: 20:39 cp 12/26 20:36 Order name: Vital Signs; Complete Time: 20:39 cp EC/20 21:15 Rate is 113 beats/min. Rhythm is regular. [place] interval is normal. QRS interval is cp normal. QT interval is normal. T waves are Inverted. Interpreted by me. Reviewed by me. Administered Medications: 21:00 Drug: Ondansetron IVP 4 mg IVP once; over 2 minutes Route: IVP; Site: left antecubital; ss12 21:00 Drug: Albuterol Inhalation 2.5 mg Inhalation once Route: Inhalation; [facility] 21:00 Drug: Ipratropium Inhalation Aerosol 0.5 mg Inhalation once Route: Inhalation; [facility] 22:00 Drug: NS 0.9% IV 1000 ml IV at 1 bolus Per protocol; to be given as a bolus over 60 ss12 minutes Route: IV; Rate: 1 bolus; Site: left antecubital; 12/27 00:10 Follow up: IV Status: Completed infusion; IV Intake: 1000ml [facility] 12/26 22:00 Drug: Rocephin IV 1 grams IV at calculated rate once; Given slow IV push per pharmacy [facility] instructions Route: IV; Rate: calculated rate; Site: left antecubital; 12/27 00:10 Follow up: IV Status: Completed infusion; IV Intake: 10ml [facility] 12/26 22:30 Drug: Zithromax IVPB 500 mg IVPB once over 1 hrs; mix in 250 mL NS Route: IVPB; Infused [facility] Over: 1 hrs; Site: left antecubital; 12/27 00:10 Follow up: IV Status: Completed infusion; IV Intake: 250ml [facility] 12/26 22:30 Drug: NS 0.9% IV 1000 ml IV at 1000 ml once; to be given as a bolus over 60 minutes [facility] Route: IV; Rate: 1000 ml; Site: left antecubital; 12/27 01:46 Follow up: IV Status: Completed infusion; IV Intake: 1000ml [facility] 12/26 22:30 Drug: Potassium PO Effervescent Tablet 50 mEq PO once; dissolve in 4 ounces of water or ss12 juice Route: PO; 12/27 00:10 Follow up: Response: No adverse reaction [facility] 01:00 Drug: vancoMYCIN IVPB 15 mg/kg IVPB once; once over 2 hrs; not to exceed 2 grams; (mix ss12 in 250 to 500 mL NS) Route: IVPB; Site: left antecubital; Disposition: 07:50 Co-signature as Attending Physician, Bhanu Salcedo DO I agree with the assessment and tt7 plan of care. 18:52 I reviewed the patient's care provided by Advanced Practice Provider \\T\\ agree w/ the tt7 diagnosis \\T\\ care plan. I personally saw the pt \\T\\ performed a substantive portion of the visit, incldng all aspects of the (History/Exam/Medical Decision Making). Disposition Summary: 12/26/24 22:16 Hospitalization Ordered Notes: Hospitalization Status: Inpatient Admission cp Provider: Santos García cp Location: Telemetry/MedSurg (Inpatient) cp Condition: Fair cp Problem: new cp Symptoms: have improved cp Bed/Room Type: Standard cp Room Assignment: 417(12/27/24 00:56) kl Diagnosis - Pneumonia in diseases classified elsewhere cp - Sepsis, unspecified organism cp Forms: - Medication Reconciliation Form cp - SBAR form cp - Leadership Thank You Letter cp Signatures: Dispatcher [employer] EDBernie Mark RN RN Michael Kirk PA-C PAAna Carrillo cp, RN RN ss12 Bhanu Salcedo DO DO tt7 Corrections: (The following items were deleted from the chart) 12/26 20:36 20:36 PROBNP+C.LAB.BRZ ordered. EDMS EDMS 20:36 20:36 BLOOD CULTURE*+BA.LAB.BRZ ordered. EDMS EDMS 20:36 20:36 CBC+H.LAB.BRZ ordered. EDMS EDMS 20:36 20:36 COMPREHENSIVE METABOLIC PANEL+C.LAB.BRZ ordered. EDMS EDMS 20:36 20:36 LACTATE+C.LAB.BRZ ordered. EDMS EDMS 20:36 20:36 PROTIME (+INR)+COAG.LAB.BRZ ordered. EDMS EDMS 20:36 20:36 PTT, ACTIVATED+COAG.LAB.BRZ ordered. EDMS EDMS 20:36 20:36 Troponin High Sensitivity+C.LAB.BRZ ordered. EDMS EDMS 20:36 20:36 UA Rfx Benitez Cult if indicated+U.LAB.BRZ ordered. EDMS EDMS 22:17 22:16 Severe sepsis without septic shock cp cp 12/27 00:56 12/26 22:16 cp kl
[2024-12-26] MEDS ORDERED: CEFTRIAXONE 1000 MG/VIAL ONE (22:20)
[2024-12-26] MEDS ORDERED: AZITHROMYCIN 500 MG INJ IVPB ONE (22:20)
[2024-12-26] MEDS ORDERED: POTASSIUM 25 MEQ EFFERV TAB ONE (22:21)
[2024-12-26] MEDS ORDERED: NA CHLORIDE 0.9% 2,000 ML ONE (22:21)
[2024-12-26] MEDS ORDERED: NA CHLORIDE 0.9% 250 ML ONE (22:21)
[2024-12-26 23:16] LABS: Sqamous Epithelial None Seen /HPF (None Seen); Urine Culture Reflex Order REFLEXED; Urine Microscopic Reflex YN ORDER UMIC; Urine WBC Clump Occasional /HPF (None Seen)
--- NOTE | 2024-12-26 23:29 | RAD REPORT ---
EXAM: CT Angiography Chest With Intravenous Contrast CLINICAL HISTORY: Cough; Chest pain TECHNIQUE: Axial computed tomographic angiography images of the chest with intravenous contrast. Sagittal and coronal reformatted images were created and reviewed. This CT exam was performed using one or more of the following dose reduction techniques: automated exposure control, adjustment of the mA a nd/or kV according to patient size, and/or use of iterative reconstruction technique. MIP reconstructed images were created and reviewed. COMPARISON: No relevant prior studies available. FINDINGS: Limitations: Poor opacification of the pulmonary arterial tree. Pulmonary arteries: Nondiagnostic evaluation of the pulmonary arteries. Aorta: No acute findings. No thoracic aortic aneurysm. Lungs and pleural spaces: Multifocal nodular opacities some demonstrating cavitary components and m ultifocal tree-in-bud opacities within the lungs bilaterally. An index thick-walled cavitary lesion in the left upper lobe on series 4 1 image 60 measures 4.7 x 1.9 x 2 cm. No significant effusion. No pneumothorax. Heart: Unremarkable. No cardiomegaly. No significant pericardial effusion. No evidence of RV dysfunction. Bones/joints: Partially visualized left humeral hardware. No acute fracture. No dislocation. Soft tissues: Unremarkable. Lymph nodes: Unremarkable. No enlarged lymph nodes. IMPRESSION: 1. Nondiagnostic evaluation of the pulmonary arteries secondary to poor bolus timing. 2. Multifocal infiltrates bilaterally with endobronchial involvement. There are underlying cavitary components. Differential considerations include but are not limited to atypical infection (including tuberculosis and fungal) and septic emboli. 3. Other findings as above. Electronically signed by: Poonam Siegel MD 12/26/2024 11:20 PM CDT Due to temporary technical issues with the PACS/[employer] reporting system, reports are being josé miguel d by the in-house radiologist without review as a courtesy to ensure prompt reporting the interpreting radiologist is fully responsible for the content of the report. Transcribed Date/Time: 12/26/2024 11:29 PM
[2024-12-27] MEDS ORDERED: VANCOMYCIN 1 GM/VIAL ONE (00:17)
[2024-12-27] MEDS ORDERED: VANCOMYCIN 500 MG/VIAL ONE (00:17)
[2024-12-27] MEDS ORDERED: NA CHLORIDE 0.9% 500 ML ONE (00:18)
--- NOTE | 2024-12-27 00:46 | P.HP ---
Certification for Inpatient Patient admitted to: Inpatient With expected LOS: >2 Midnights Practitioner: I am a practitioner with admitting privileges, knowledge of patient current condition, hospital course, and medical plan of care. Services: Services provided to patient in accordance with Admission requirements found in Title 42 Section 412.3 of the Code of Federal Regulations Patient History Date of Service: 12/27/24 Reason for admission: Hemoptysis History of Present Illness: 39-year-old male with no significant past medical history who was having cough for the last 2 weeks associated with subjective fever. Cough is productive with mucoid expectoration. Started 2 days ago and has been progressively getting worse. Noticed blood in the sputum few occasions. Denies any sick contacts. Associated with some nausea and diarrhea. Patient also had subjective fever and was taking Tylenol and ibuprofen. Denies any recent travel. 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 - Family History Mother -: Diabetes - Social History Smoking Status: Never smoker Alcohol use: No CD- Drugs: No Caffeine use: Yes Review of Systems 10-point ROS is otherwise unremarkable Physical Examination - Vital Signs Temperature: 98.6 F Blood Pressure: 138/78 Pulse: 110 Respirations: 18 Pulse Ox (%): 94 - Physical Exam General: Alert, Oriented x3, Mild distress HEENT: Atraumatic, Normocephalic Neck: Supple Respiratory: Diminished, Crackles/rales Cardiovascular: Regular rate/rhythm, Normal S1 S2 Capillary refill: <2 Seconds Gastrointestinal: Soft and benign, W/out hepatosplenomegaly Musculoskeletal: No clubbing Integumentary: No rashes Neurological: Other (Alert awake nonfocal) Lymphatics: No axilla or inguinal lymphadenopathy - Studies Laboratory Data (last 24 hrs) 12/26/24 12/26/24 12/26/24 21:11 21:11 21:11 WBC 9.00 Hgb 12.7 L Hct 38.0 L Plt Count 500 H PT 18.1 H INR 1.62 APTT 33.0 Sodium 135 L Potassium 3.0 L BUN 7 Creatinine 0.78 Glucose 107 H Total Bilirubin 0.4 AST 34 ALT 33 Alkaline Phosphatase 82 Assessment and Plan - Plan Multifocal pneumonia Hemoptysis Cavitary lesions Airborne precautions Hypokalemia Hyponatremia Sinus tachycardia Plan : Monitor closely under telemetry Will get a QuantiFERON test Started on IV antibiotic Sputum cultures Pulmonology consult Monitor H&H closely IV hydration GI/DVT prophylaxis Advanced directive full code Discharge Plan: Home Plan to discharge in: 48 Hours - Advance Directives Does patient have a Living Will: No Does patient have a Durable POA for Healthcare: No - Code Status/Comfort Care Code Status: Full Code Time Spent Managing Pts Care (In Minutes): 49
[2024-12-27 01:51] VITALS: BMI 35.5
[2024-12-27] MEDS: ACETAMINOPHEN 325 MG TABLET PO PRN (01:58)
[2024-12-27] MEDS: IBUPROFEN 400 MG TAB PO ONE (04:50)
[2024-12-27] MEDS: IPRATROPIUM BROM 0.5MG/2.5ML NEB PRN (08:13)
[2024-12-27] MEDS: ALBUTEROL 2.5 MG/3 ML NEB SOL NEB PRN (08:13)
[2024-12-27] MEDS: AZITHROMYCIN IV 500 MG in NA CHLORIDE 0.9% 250 ML IVPB SCH (08:19)
[2024-12-27] MEDS: CEFTRIAXONE 1000 MG/VIAL ONE (09:41)
[2024-12-27] MEDS: CEFTRIAXONE 1,000 MG in NA CHLORIDE 0.9% 50 ML IVPB SCH (09:42)
[2024-12-27] MEDS: PIPER TAZO 4.5 GM in NA CHLORIDE 0.9% 100 ML IV SCH (10:29)
--- NOTE | 2024-12-27 10:52 | P.CNS ---
Date of Consult: 12/27/24 Reason for Consult: Pneumonia Chief Complaint: Hemoptysis History of Present Illness: Patient is 39 years of age has been sick for about a week complaining of productive cough hemoptysis with addition some fever no prior risk factors for pneumonia patient quit vaping in May was former heavy smoker has been drug- free for the past 3 years as a means exposed to anyone who has been sick was found to have bilateral pneumonia Allergies No Known Allergies Allergy (Unverified 01/31/23 12:00) Home Medications: NK [No Home Meds] 12/27/24 - Past Medical/Surgical History Diabetic: No -: None -: Cholecystectomy Psychosocial/ 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: 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, 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 - Family History Mother Medical History: Diabetes - Social History Alcohol use: No CD- Drugs: No Caffeine use: Yes Review of Systems General: Weakness Respiratory: Cough, Hemoptysis Physical Examination Temp Pulse Resp BP Pulse Ox 98.1 F 96 H 16 115/56 L 95 12/27/24 08:00 12/27/24 08:00 12/27/24 08:00 12/27/24 08:00 12/27/24 08:00 General: Alert, Oriented x3 HEENT: Atraumatic Neck: Supple Respiratory: Clear to auscultation bilaterally, Normal air movement Cardiovascular: No edema, Regular rate/rhythm, Normal S1 S2 Laboratory Data (last 24 hrs) 12/26/24 12/26/24 12/26/24 21:11 21:11 21:11 WBC 9.00 Hgb 12.7 L Hct 38.0 L Plt Count 500 H PT 18.1 H INR 1.62 APTT 33.0 Sodium 135 L Potassium 3.0 L BUN 7 Creatinine 0.78 Glucose 107 H Total Bilirubin 0.4 AST 34 ALT 33 Alkaline Phosphatase 82 - Problems (1) Pneumonia Current Visit: Yes Status: Acute Plan: Patient is 39 years of age admitted with bilateral multifocal pneumonia with some cavitary changes in the left lingular region has normal white count mildly hypokalemic also has a microcytic anemia needs iron studies changed to Zosyn and vancomycin vital signs satisfactory had some fever on admission sputum cultures are pending Qualifiers: Pneumonia type: due to unspecified organism Laterality: bilateral
[2024-12-27] MEDS ORDERED: ALBUTEROL 2.5 MG/3 ML NEB SOL NEB PRN (10:56)
[2024-12-27] MEDS: VANCOMYCIN 2.5 GM in NA CHLORIDE 0.9% 500 ML IV ONE (12:22)
[2024-12-27] MEDS: PIPER TAZO 3.375 GM in NA CHLORIDE 0.9% 100 ML IV SCH (12:23)
[2024-12-27] MEDS: VANCOMYCIN 1.75 GM in NA CHLORIDE 0.9% 500 ML IVPB SCH (23:02)
[2024-12-27] MEDS: GUAIFENESIN/DM 5 ML UCUP PO PRN (23:11)
--- NOTE | 2024-12-28 03:32 | P.PN ---
Date of Service: 12/27/24 Subjective Pt is doing well; clinical symptoms better Physical Examination - Vital Signs reviewed - Physical Exam General: Alert, Oriented x3, Mild distress Respiratory: Diminished, Crackles/rales Cardiovascular: Regular rate/rhythm, Normal S1 S2 Gastrointestinal: Soft and benign, W/out hepatosplenomegaly Neurological: no focal deficits Assessment and Plan - Assessment/Plan 1. Multifocal pneumonia with cavitary lesions r/o TB; airborne precautions. QUANTIFERON. Pulmonary consulted. Cx pending 2. Electrolyte abnormalities; continue with potassium and sodium supplements. 3. Tachycardia; IV hydrartion; beta-sebas therapy. GI/DVT prophylaxis Advanced directive full code Discharge Plan: Home Plan to discharge in: 48 Hours - Advance Directives Does patient have a Living Will: No Does patient have a Durable POA for Healthcare: No - Code Status/Comfort Care Code Status: Full Code Time Spent Managing Pts Care (In Minutes): 30
[2024-12-28 05:14] LABS: Absolute Lymphocytes (CBC) 0.9 K/uL (0.7-4.9); Hematocrit 32.3 % (39.6-49.0); Hemoglobin 10.8 g/dL (13.6-17.9); MCH 25.7 pg (27.0-35.0); MCHC 33.5 g/dL (32.0-36.0); MCV 76.7 fL (80-100); MPV 6.9 fL (7.6-11.3); Nucleated RBC Absolute Count 0.0 (0-0); Nucleated Red Blood Cells % 0.0 % (0-0); RBC Red Blood Cell Count 4.22 M/uL (4.33-5.43); White Blood Count 6.50 thou/uL (4.3-10.9)
[2024-12-28 05:45] LABS: C-Reactive Protein 141.0 mg/L (<3.00); Magnesium 1.8 mg/dL (1.6-2.4)
[2024-12-28 05:53] LABS: ALT/SGPT 26.0 U/L (16-61); AST/SGOT 24.0 U/L (15-37); Albumin 2.1 g/dL (3.4-5.0); Albumin/Globulin Ratio 0.5 (1.1-1.8); Alkaline Phosphatase 56.0 U/L (45-117); Anion Gap 9.6 mEq/L (5.0-15.0); BUN Blood Urea Nitrogen 3.0 mg/dL (7-18); Globulin 4.0 g/dL (2.3-3.5); Glucose Level 90.0 mg/dL (74-106); Iron 23.0 ug/dL (65-175); Transferrin 119.0 mg/dL (200-360)
[2024-12-28 05:58] LABS: Potassium 2.6 mEq/L (3.5-5.1)
[2024-12-28] MEDS: KCL 20 MEQ/100 mL IVPB 20 MEQ/100 ML BAG IV SCH (06:38)
[2024-12-28] MEDS: NA CHLORIDE 0.9% 250 ML ONE ×2 (06:39→09:45)
[2024-12-28] MEDS: POTASS/SODIUM PHOSPHATE 1 PKT POWD.PACK PO SCH (08:20)
--- NOTE | 2024-12-28 12:27 | P.PN ---
Subjective Date of Service: 12/28/24 Chief Complaint: Hemoptysis Subjective: No new changes assessed patient lying in bed on room air in no apparent distress with mother at the bedside. Patient endorses continued productive cough with thick sputum. States that guaifenesin has had minimal relief of thick sputum. Reports fever yesterday and overnight treated with Tylenol with good relief. Endorses diaphoresis when feverish, watery diarrhea that was present on arrival. Denies nasal congestion, dizziness. Reviewed findings of HIV positive screening test with patient and mother. Discussed plan to wait on viral load testing prior to deciding on next labs. <Stewart Beltrán - Last Filed: 12/28/24 12:21> Date of Service: 12/28/24 <Beatriz Ashley - Last Filed: 12/28/24 16:48> Review of Systems 10-point ROS is otherwise unremarkable <Stewart Beltrán - Last Filed: 12/28/24 12:21> Physical Examination - Vital Signs Temperature: 101.0 F Blood Pressure: 140/72 Pulse: 114 Respirations: 17 Pulse Ox (%): 96 - Physical Exam General: Alert, In no apparent distress, Oriented x3, Cooperative, Obese HEENT: Atraumatic, Normocephalic, Mucous membr. moist/pink Neck: Supple, 2+ carotid pulse no bruit, JVD not distended, No Thyromegaly, No LAD Respiratory: Normal air movement, Crackles/rales Cardiovascular: No edema, Normal pulses, Regular rate/rhythm, Normal S1 S2, No gallops, No rubs, No murmurs Capillary refill: <2 Seconds Gastrointestinal: Normal bowel sounds, Soft and benign, Non-distended Musculoskeletal: No clubbing, No swelling, No contractures, No erythema, No tenderness, No warmth Integumentary: No rashes, No breakdown, No significant lesion, No tenderness/swelling, No erythema, No warmth, No cyanosis Neurological: Normal gait, Normal speech, Normal strength at 5/5 x4 extr, Normal tone, Sensation intact, Cranial nerves 3-12 intact, Normal affect Lymphatics: No axilla or inguinal lymphadenopathy External genitalia: Deferred Rectal: Deferred <Stewart Beltrán - Last Filed: 12/28/24 12:21> - Studies Microbiology Data (last 24 hrs): 12/26/24 22:48 Clean Catch Urine [place] Count - Final <Beatriz Ashley - Last Filed: 12/28/24 16:48> Assessment And Plan - Plan Assessment: Plan: Multifocal pneumonia with cavitary lesions r/o TB; Hemoptysis, improved - airborne precautions. - QUANTIFERON pending will follow-up. - Pulmonary consulted. - Cx pending. Discussed with nurse collection of AFB smear 12/28. - Per discussion with pulmonology started on IV Zosyn and vancomycin, monitoring for toxicity Hypokalemia Hyponatremia - Monitor BMP - continue with potassium and sodium supplements as needed Sinus tachycardia In setting of infection/fever/dehydration - IV hydrartion - beta-sebas therapy. - Telemetry monitoring Dispo: - TB rule out testing - IV antibiotics - Anticipate home with no needs Discharge Plan: Home Plan to discharge in: 48 Hours <Stewart Beltrán - Last Filed: 12/28/24 12:21> Physician Review: Patient Assessed, Agree with Above Assessment and Plan <Beatriz Ashley - Last Filed: 12/28/24 16:48>
[2024-12-29 06:50] LABS: Anion Gap 11.8 mEq/L (5.0-15.0); Glucose Level 99 mg/dL (74-106); Magnesium 1.7 mg/dL (1.6-2.4); Potassium 2.8 mEq/L (3.5-5.1)
[2024-12-29 06:52] LABS: BUN Blood Urea Nitrogen < 3 mg/dL (7-18)
[2024-12-29] MEDS: MAGNESIUM OXIDE 400 MG TAB PO ONE (07:11)
[2024-12-29] MEDS: POTASSIUM 25 MEQ EFFERV TAB PO ONE (08:03)
[2024-12-29] MEDS: POTASS/SODIUM PHOSPHATE 1 PKT POWD.PACK PO ONE (09:43)
--- NOTE | 2024-12-29 12:21 | P.PN ---
Date of Service: 12/29/24 [facility] Live Progress Note Subjective Date of Service: 12/29/24 Chief Complaint: Hemoptysis Subjective: No new changes Assessed patient lying in bed on room air in no apparent distress. Dr. Massey at the bedside. Reviewed no updates on microbiology cultures at the time of assessment. Patient still complaining of productive cough, nighttime fever with diaphoresis. Endorses some improvement than at time of admission. Denies hemoptysis. Also discussed obtaining viral load testing. Review of Systems 10-point ROS is otherwise unremarkable Physical Examination - Vital Signs Temperature: 98.3 F Blood Pressure: 117/83 Pulse: 118 Respirations: 18 Pulse Ox (%): 95 - Physical Exam General: Alert, In no apparent distress, Oriented x3, Cooperative, Obese HEENT: Atraumatic, Normocephalic, Mucous membr. moist/pink Neck: Supple, 2+ carotid pulse no bruit, JVD not distended, No Thyromegaly, No LAD Respiratory: Normal air movement, CTA, diminished bases Cardiovascular: No edema, Normal pulses, Regular rate/rhythm, Normal S1 S2, No gallops, No rubs, No murmurs, tachycardic Capillary refill: <2 Seconds Gastrointestinal: Normal bowel sounds, Soft and benign, Non-distended Musculoskeletal: No clubbing, No swelling, No contractures, No erythema, No tenderness, No warmth Integumentary: No rashes, No breakdown, No significant lesion, No tenderness/swelling, No erythema, No warmth, No cyanosis Neurological: Normal gait, Normal speech, Normal strength at 5/5 x4 extr, Normal tone, Sensation intact, Cranial nerves 3-12 intact, Normal affect Lymphatics: No axilla or inguinal lymphadenopathy External genitalia: Deferred Rectal: Deferred - Studies Microbiology Data (last 24 hrs): Microbiology 12/26/24 22:48 Clean Catch Urine [place] Count - Final 12/26/24 22:48 Clean Catch Urine - Final 12/26/24 20:50 Blood - Blood Aerobic Blood Culture - Preliminary No growth in 24 hours. 12/26/24 20:50 Blood - Blood Anaerobic Blood Culture - Preliminary No growth in 24 hours. 12/26/24 21:11 Blood - Blood Aerobic Blood Culture - Preliminary No growth in 24 hours. 12/26/24 21:11 Blood - Blood Anaerobic Blood Culture - Preliminary No growth in 24 hours. Assessment And Plan - Plan Assessment: Plan: Multifocal pneumonia with cavitary lesions r/o TB; Hemoptysis, improved - airborne precautions. - QUANTIFERON pending will follow-up. - Pulmonary consulted. - Blood cultures NGTD - Sputum culture growing Staph aureus - Discussed with nurse collection of AFB smear 12/28. - Per discussion with pulmonology started on IV Zosyn and vancomycin, monitoring for toxicity HIV, new diagnosis -ID consulted for new HIV diagnosis in conjunction with pulmonary infection noted above - DNA/RNA PCR pending - CD4 pending Hypokalemia Hyponatremia, resolved Hypophosphatemia -Potassium 2.8 on 12/29 -Phosphate 2.0 on 12/29 -Potassium 50 mEq p.o., Neutra-Phos 2 packets ordered x 1 -Magnesium 1.7, 500 mg magnesium oxide ordered x 1 to optimize to 2 point - Monitor BMP - continue with potassium and sodium supplements as needed Sinus tachycardia In setting of infection/fever/dehydration -Continue to treat infection with IV antibiotics -Encourage p.o. intake -Use albuterol nebulizers judiciously to avoid adverse effects - Telemetry monitoring Dispo: - TB rule out testing pending - IV antibiotics - Anticipate home with no needs <Stewart Beltrán - Last Filed: 12/29/24 12:13> I personally saw and evaluated the patient on 12/29/2024. I reviewed Stewart Beltrán's documentation and agree with the findings and plan of care as documented. I have discussed the case with the clinician and provided direct guidance as appropriate. Any additions clarifications are noted in my documentation. I spent a total of 35 minutes on this encounter, including direct patient care, counseling, coordination of care, and documentation <Beatriz Ashley - Last Filed: 12/29/24 16:33>
--- NOTE | 2024-12-29 14:58 | RAD REPORT ---
EXAMINATION: ONE VIEW CHEST XR CLINICAL INDICATION: Male, 39 years old.,pneumonia TECHNIQUE: Frontal chest projection is submitted. Examination is limited by patient positioning and t echnique. COMPARISON: 12/26/2024 FINDINGS: Patchy bilateral opacities predominantly in the right upper lung left midlung, with mildly increased density on the right since the prior exam. Suboptimal inspiratory effort somewhat limits evaluation. No pneumothorax or sizable effusion. The heart is normal in size. Mediastinal contours a re unremarkable. IMPRESSION: Patchy bilateral airspace opacities as above, concerning for pneumonia.
[2024-12-29] MEDS: NA CHLORIDE 0.9% 100 ML ONE (16:12)
--- NOTE | 2024-12-29 21:01 | CON ---
History Of Present Illness: This is a 39-year-old male with no significant past medical problem, com ing in with cough and last 2 weeks of subjective fever with productive cough which has improved since his admission. The patient is currently being treated with Zosyn and vancomycin. The patient denie s any chest pain, abdominal pain, constipation, or diarrhea. He has been recently on this hospitaliz ation diagnosed with HIV. His sputum culture came back for Staph aureus. His initial chest x-ray sh ows bilateral multifocal pneumonitis with cavitary lesions. Repeat x-ray today shows patchy bilatera l airspace opacities concerning pneumonia. A CT scan of chest done on December 26 showed that the patient has multifocal infiltrates bilaterally with endobronchial involvement. There is underlying cavitary component differentiated. Considering includes, but are not limited to, atypical infection including TB and fungal and septic emboli. Past Medical History: None. Social History: Intravenous drugs positive, high-risk sexual behavior positive. Medications: For the patient include vancomycin, Zosyn. See MARs for other medications. Allergies: NO KNOWN DRUG ALLERGIES. Review of Systems: A 10-point review was performed. Physical Examination: General: This is a 39-year-old male, lying in bed, not in any acute cardiopulmonary distress. Vital Signs: Temperature 98, pulse 107, respirations 18, blood pressure 135/72. HEENT: Unremarkable. Neck: Supple. Lungs: Basal crackles. Heart: S1, S2. Regular. Abdomen: Soft, nontender. Bowel sounds present. Extremities: No edema. Laboratory Data: Shows WBC 6.5, hemoglobin 10.8, platelets are 511. Chemistry shows BUN of 8, creat inine 0.7, albumin level 2.1. Blood cultures no growth for 24 hours. Sputum culture positive for St aph aureus, sensitivity pending. Assessment And Plan: Newly diagnosed HIV, most likely secondary to history of intravenous drug use a nd high-risk sexual behavior, CD4 count is pending. QuantiFERON for TB is pending. The patient empi rically getting Zosyn and vancomycin. Consider switching patient to Bactrim DS. On discharge, torrey gu with HIV Clinic. Continue supportive care and monitor signs of infection with WBC and fever tren ds. NF/MODL Voice ID: [id number] Report ID: [id number]
[2024-12-29] MEDS: POTASSIUM CL SA 10 MEQ TAB PO ONE (22:58)
[2024-12-30] MEDS: ONDANSETRON 4 MG/2 ML VIAL IV PRN (03:38)
--- NOTE | 2024-12-30 07:48 | RAD REPORT ---
EXAMINATION: ONE VIEW CHEST XR CLINICAL INDICATION: pneumonia TECHNIQUE: Frontal chest projection is submitted. Examination is limited by patient positioning and t echnique. COMPARISON: 12/29/2024 FINDINGS: Patchy bilateral pulmonary opacities are seen, appearing unchanged from the prior study. The heart is normal in size. No displaced fractures identified. IMPRESSION: Stable chest since 12/29/2024 prior study.
[2024-12-30 08:40] LABS: Absolute Lymphocytes (CBC) 1.3 K/uL (0.7-4.9); Hematocrit 31.3 % (39.6-49.0); Hemoglobin 10.5 g/dL (13.6-17.9); MCH 25.8 pg (27.0-35.0); MCHC 33.6 g/dL (32.0-36.0); MCV 76.9 fL (80-100); MPV 6.7 fL (7.6-11.3); Nucleated RBC Absolute Count 0.0 (0-0); Nucleated Red Blood Cells % 0.0 % (0-0); RBC Red Blood Cell Count 4.06 M/uL (4.33-5.43); White Blood Count 9.50 thou/uL (4.3-10.9)
[2024-12-30 09:30] LABS: Anion Gap 11.1 mEq/L (5.0-15.0); Glucose Level 101 mg/dL (74-106); Magnesium 1.7 mg/dL (1.6-2.4); Potassium 3.1 mEq/L (3.5-5.1)
[2024-12-30 09:32] LABS: BUN Blood Urea Nitrogen < 3 mg/dL (7-18)
--- NOTE | 2024-12-30 09:54 | P.PN ---
Subjective Date of Service: 12/30/24 Chief Complaint: Hemoptysis Subjective: Improving (Patient is on room air. Still having productive cough but no longer having hemoptysis. Afebrile) Physical Examination - Vital Signs Temperature: 98.6 F Blood Pressure: 135/68 Pulse: 114 Respirations: 18 Pulse Ox (%): 93 - Physical Exam General: Cooperative, Acute distress, Obese HEENT: Atraumatic, Normocephalic Respiratory: Diminished, Crackles/rales Cardiovascular: No edema, Normal pulses, Regular rate/rhythm, Normal S1 S2 Neurological: Normal speech - Studies Microbiology Data (last 24 hrs): 12/26/24 22:48 Clean Catch Urine [place] Count - Final 12/26/24 22:48 Clean Catch Urine - Final Assessment And Plan - Plan Assessment Patient is a 39-year-old who was admitted after he presented with cough and hemoptysis. There is evidence of cavitary pneumonia on chest x-ray. Sputum culture so far is yielded Staph aureus. TB is being ruled out. Patient is currently on room air and in no respiratory distress. Multifocal pneumonia with cavitary lesions HIVnewly diagnosed Acute diarrhea Hypokalemia Hyponatremia Hypophosphatemia Plan: Continue empiric antibiotic coverage Vanco and Zosyn Sputum cultures showing MRSA Continue airborne isolation until TB is ruled out. AFB sputum has been sent out Contiform gold study pending Follow CD4 count and viral load Send for stool culture and ova parasites given ongoing diarrhea Antidiarrheal medication Electrolyte replacement I agree with infectious disease and pulmonary consult Physician Review: Patient Assessed, Agree with Above Assessment and Plan
--- NOTE | 2024-12-30 13:21 | P.PN ---
Date of Service: 12/30/24 subjective: no fever/chill. denied problem with abx. WBC WNL. objective Temp Pulse Resp BP Pulse Ox 98.1 F 101 H 18 116/64 97 12/30/24 12:00 12/30/24 12:00 12/30/24 12:00 12/30/24 12:00 12/30/24 12:00 - Physical Exam General: Cooperative, Acute distress, Obese HEENT: Atraumatic, Normocephalic Respiratory: Diminished, Crackles/rales, 2 L NC Cardiovascular: tachycardic Neurological: respond appropriately to questions Microbiology 12/26/24 22:48 Clean Catch Urine [place] Count - Final 12/26/24 22:48 Clean Catch Urine - Final 12/26/24 20:50 Blood - Blood Aerobic Blood Culture - Preliminary No growth in 24 hours. 12/26/24 20:50 Blood - Blood Anaerobic Blood Culture - Preliminary No growth in 24 hours. 12/26/24 21:11 Blood - Blood Aerobic Blood Culture - Preliminary No growth in 24 hours. 12/26/24 21:11 Blood - Blood Anaerobic Blood Culture - Preliminary No growth in 24 hours. labs: 9.5 wbc, hgb 10.5, bun <3, CR 0.91, albumin 2.1 assessment and planning Multifocal pneumonia with cavitary lesions HIVnewly diagnosed Diarrhea moderatw protein calorie malnourishment Sputum showing MRSA and Staph. recommend dc vancomycin and zosyn. add bactrim DS AFB sputum pending CD4 and viral load pending RPR, G/C, pending stool culture pending start pt on HIV meds: fortunato recommend to f/u with HIV clinic after discharge case discussed and in agreement with Dr Massey
[2024-12-30] MEDS: DOLUTEGRAVIR SODIUM 50 MG TABLET PO SCH (15:09)
[2024-12-30] MEDS: EMTRICITABINE/TENOFOVIR 1 TAB PO SCH (15:10)
[2024-12-30] MEDS: HYDROMORPHONE HCL 1 MG/ML INJ IV PRN (15:45)
[2024-12-30] MEDS: SMZ./TMP. 800/160 MG TABLET PO SCH (20:24)
[2024-12-31 10:39] LABS: Absolute Lymphocytes (CBC) 1.2 K/uL (0.7-4.9); Hematocrit 32.4 % (39.6-49.0); Hemoglobin 10.8 g/dL (13.6-17.9); MCH 25.5 pg (27.0-35.0); MCHC 33.4 g/dL (32.0-36.0); MCV 76.5 fL (80-100); MPV 6.8 fL (7.6-11.3); Nucleated RBC Absolute Count 0.0 (0-0); Nucleated Red Blood Cells % 0.0 % (0-0); RBC Red Blood Cell Count 4.23 M/uL (4.33-5.43); White Blood Count 8.10 thou/uL (4.3-10.9)
--- NOTE | 2024-12-31 10:48 | P.PN ---
Subjective Date of Service: 12/31/24 Chief Complaint: Hemoptysis Subjective: Improving (No acute events overnight. Patient is responding well to current therapy.) Physical Examination - Vital Signs Temperature: 99 F Blood Pressure: 121/60 Pulse: 106 Respirations: 18 Pulse Ox (%): 94 - Physical Exam General: Alert, In no apparent distress, Cooperative, Obese HEENT: Atraumatic, Normocephalic Respiratory: Other (Breathing is not labored) Cardiovascular: No edema, Normal pulses, Regular rate/rhythm, Normal S1 S2 Neurological: Normal speech Assessment And Plan - Plan Assessment Patient is a 39-year-old who was admitted after he presented with cough and hemoptysis. There is evidence of cavitary pneumonia on chest x-ray. Sputum culture so far is yielded Staph aureus. TB is being ruled out. Patient is currently on room air and in no respiratory distress. Multifocal pneumonia with cavitary lesions HIVnewly diagnosed Acute diarrhea Hypokalemia Hyponatremia Hypophosphatemia Plan: Currently on treatment for MRSA pneumonia Vancomycin on hold pending trough levels Continue airborne isolation until TB is ruled out. AFB sputum has been sent out Contiform gold study pending Follow CD4 count and viral load Send for stool culture and ova parasites given ongoing diarrhea Antidiarrheal medication Electrolyte replacement I agree with infectious disease and pulmonary consult Patient can be discharged once TB has been ruled out. Physician Review: Patient Assessed, Agree with Above Assessment and Plan
[2024-12-31 10:57] LABS: Anion Gap 9.0 mEq/L (5.0-15.0); BUN Blood Urea Nitrogen 6.0 mg/dL (7-18); Glucose Level 104.0 mg/dL (74-106); Magnesium 1.8 mg/dL (1.6-2.4); Potassium 3.0 mEq/L (3.5-5.1)
[2024-12-31] MEDS: VANCOMYCIN 2.5 GM in NA CHLORIDE 0.9% 500 ML IVPB ONE (14:44)
[2025-01-01] MEDS: VANCOMYCIN 2 GM in NA CHLORIDE 0.9% 500 ML IVPB SCH (01:30)
[2025-01-01 05:15] LABS: RPR (Rapid Plasma Reagin) REACTIVE (NON-REACT)
--- NOTE | 2025-01-01 09:22 | P.PN ---
Subjective Date of Service: 01/01/25 Chief Complaint: Hemoptysis Subjective: Improving (Patient is feeling better.) Physical Examination - Vital Signs Temperature: 100.2 F Blood Pressure: 128/58 Pulse: 112 Respirations: 20 Pulse Ox (%): 96 - Physical Exam General: Alert, In no apparent distress, Cooperative HEENT: Atraumatic, Normocephalic Cardiovascular: Other (Breathing is not laboured ) Neurological: Normal speech - Studies Microbiology Data (last 24 hrs): 12/26/24 20:50 Blood - Blood Aerobic Blood Culture - Final No growth in 5 days. 12/26/24 20:50 Blood - Blood Anaerobic Blood Culture - Final No growth in 5 days. 12/26/24 21:11 Blood - Blood Aerobic Blood Culture - Final No growth in 5 days. 12/26/24 21:11 Blood - Blood Anaerobic Blood Culture - Final No growth in 5 days. Assessment And Plan - Plan Assessment Patient is a 39-year-old who was admitted after he presented with cough and hemoptysis. There is evidence of cavitary pneumonia on chest x-ray. Sputum culture so far is yielded Staph aureus. TB is being ruled out. Patient is currently on room air and in no respiratory distress. Multifocal pneumonia with cavitary lesions HIVnewly diagnosed Acute diarrhea Hypokalemia Hyponatremia Hypophosphatemia Plan: Currently on treatment for MRSA pneumonia ID recommends Bactrim Continue airborne isolation until TB is ruled out. AFB sputum has been sent out Quantiferon Gold study pending Follow CD4 count and viral load Send for stool culture and ova parasites given ongoing diarrhea Antidiarrheal medication Electrolyte replacement I agree with infectious disease and pulmonary consult Patient can be discharged once TB has been ruled out. Physician Review: Patient Assessed, Agree with Above Assessment and Plan
--- NOTE | 2025-01-01 12:12 | P.PN ---
Date of Service: 01/01/25 subjective: no fever/chill. denied problem with abx. WBC WNL. Pt report was tested positive for syphillis a few years ago. got two shots of PCN G IM but did not go for the third dose. Pt tested positive for RPR. 1:4 titer objective Temp Pulse Resp BP Pulse Ox 100.2 F 112 H 20 128/58 L 96 01/01/25 09:22 01/01/25 09:22 01/01/25 09:22 01/01/25 09:22 01/01/25 09:22 - Physical Exam General: Cooperative, Acute distress, Obese HEENT: Atraumatic, Normocephalic Respiratory: Diminished, Crackles/rales, 2 L NC Cardiovascular: tachycardic Neurological: respond appropriately to questions Microbiology 12/26/24 22:48 Clean Catch Urine [place] Count - Final 12/26/24 22:48 Clean Catch Urine - Final 12/26/24 20:50 Blood - Blood Aerobic Blood Culture - Preliminary No growth in 24 hours. 12/26/24 20:50 Blood - Blood Anaerobic Blood Culture - Preliminary No growth in 24 hours. 12/26/24 21:11 Blood - Blood Aerobic Blood Culture - Preliminary No growth in 24 hours. 12/26/24 21:11 Blood - Blood Anaerobic Blood Culture - Preliminary No growth in 24 hours. labs: 9.5 wbc, hgb 10.5, bun <3, CR 0.91, albumin 2.1 assessment and planning Multifocal pneumonia with cavitary lesions HIVnewly diagnosed Syphillis titer 1:4 diarrhea moderate protein calorie malnourishment Sputum showing MRSA and Staph. continue bactrim AFB sputum pending CD4 and viral load pending RPR, G/C, pending stool culture pending Pt report was tested positive for syphillis a few years ago. got two doses of PCN G IM but did not go for the third dose. Will add PCN G 2.4 units IM x 1 dose continue pt on HIV meds: tivicay and truvada recommend to f/u with HIV clinic and pulmonary after discharge case discussed and in agreement with Dr Massey
[2025-01-01] MEDS: PEN G BENZ LA 1.2MU/2ML SYRINGE IM ONE (13:46)
[2025-01-02 07:10] LABS: Anion Gap 9.9 mEq/L (5.0-15.0); BUN Blood Urea Nitrogen 5.0 mg/dL (7-18); Glucose Level 98.0 mg/dL (74-106); Magnesium 2.3 mg/dL (1.6-2.4); Potassium 2.9 mEq/L (3.5-5.1)
[2025-01-02] MEDS: KCL 20 MEQ/100 mL IVPB 20 MEQ/100 ML BAG IV SCH (08:45)
--- NOTE | 2025-01-02 12:10 | P.DS ---
Admission Date: 12/27/24 Discharge Date: 01/02/25 Disposition: ROUTINE DISCHARGE Discharge Condition: GOOD Reason for Admission: Hemoptysis Hospital Course: Patient is a 39-year-old who was admitted after he presented with cough and he moptysis. He was found to have cavitary pneumonia on chest x-ray. Sputum culture yielded MRSA. Patient also tested positive for syphilis RPR with ratio 1:4. TB is being ruled out. Patient is currently on room air and in no respiratory distress. He was on vancomycin initially and transition to Bactrim as per ID recommendation. Case was also discussed with pulmonary medicine. Patient does not have upper lobe cavitary lesions. Therefore, there was low suspicion for active TB. Okay to be discharged with a plan to follow-up in sputum AFB. He has been started on antiretroviral regimen by infectious disease. He will also be on Bactrim for at least a month for MRSA pneumonia. We are still waiting on his CD4 count and viral load. Patient will need to follow-up on these. Other issues addressed during this hospitalization include electrolyte abnormalities, which will be corrected. Vital Signs/Physical Exam: Temp Pulse Resp BP Pulse Ox 99.8 F 103 H 17 127/68 92 01/02/25 04:00 01/02/25 04:00 01/02/25 06:35 01/02/25 04:00 01/02/25 06:35 General: In no apparent distress, Cooperative HEENT: Atraumatic, Normocephalic Respiratory: Other (Breathing is not labored on room air) Neurological: Normal speech Laboratory Data at Discharge: WBC 8.10 thou/uL (4.3-10.9) 12/31/24 10:26 Hgb 10.8 g/dL (13.6-17.9) L 12/31/24 10:26 Hct 32.4 % (39.6-49.0) L 12/31/24 10:26 Plt Count 440 thou/uL (152-406) H 12/31/24 10:26 PT 18.1 SECONDS (10-13.0) H 12/26/24 21:11 INR 1.62 12/26/24 21:11 APTT 33.0 SECONDS (27.2-37.4) 12/26/24 21:11 Sodium 134 mEq/L (136-145) L 01/02/25 06:34 Potassium 2.9 mEq/L (3.5-5.1) L 01/02/25 06:34 BUN 5 mg/dL (7-18) L 01/02/25 06:34 Creatinine 0.92 mg/dL (0.70-1.30) 01/02/25 06:34 Glucose 98 mg/dL (74-106) 01/02/25 06:34 Phosphorus 2.2 mg/dL (2.5-4.9) L 01/02/25 06:34 Magnesium 2.3 mg/dL (1.6-2.4) 01/02/25 06:34 Total Bilirubin 0.4 mg/dL (0.2-1.0) 12/28/24 04:40 AST 24 U/L (15-37) 12/28/24 04:40 ALT 26 U/L (16-61) 12/28/24 04:40 Alkaline Phosphatase 56 U/L (45-117) 12/28/24 04:40 Home Medications: NK [No Home Meds] 12/27/24 Dolutegravir Sodium [Tivicay] 50 mg PO BID #30 01/02/25 Emtricitabine/Tenofovir [Truvada* 200 mg-300 mg Tablet] 1 tab PO DAILY #30 01/02/25 Smz./Tmp. [Bactrim Ds 800 MG/160 MG*] 1 tab PO BID #30 tab 01/02/25 New Medications: Smz./Tmp. [Bactrim Ds 800 MG/160 MG*] 1 tab PO BID #30 tab Dolutegravir Sodium [Tivicay] 50 mg PO BID #30 Emtricitabine/Tenofovir [Truvada* 200 mg-300 mg Tablet] 1 tab PO DAILY #30 Followup: NONE,NONE [Primary Care Provider] -
[2025-01-02 14:22] VITALS: O2SAT 92
[2025-01-02] MEDS: POTASSIUM CL SA 10 MEQ TAB PO ONE ×3 (14:45→18:51)
[2025-01-02 16:10] VITALS: BP 140/64
[2025-01-02 18:50] VITALS: TEMP 98.3
[2025-01-03 23:18] LABS: C.trachomatis RNA,TMA Not Detected (Not Detected); N.gonorrhoeae RNA,TMA Not Detected (Not Detected)
== END 2025-01-02 19:00 | disposition home or self-care (01) | DRG 975 ==
LOC: ER 19:09 → ERHOLD 12-27 00:45 → 4TH 12-27 01:17
PROVIDERS: ADMIT Family Medicine; ATTEND Internal Medicine
DX: A41.9 Sepsis, unspecified organism (principal); E44.0 Moderate protein-calorie malnutrition; B20 Human immunodeficiency virus [HIV] disease; E87.1 Hypo-osmolality and hyponatremia; R04.2 Hemoptysis; J15.212 Pneumonia due to Methicillin resistant Staphylococcus aureus; E87.6 Hypokalemia; E86.0 Dehydration; J98.4 Other disorders of lung; E66.9 Obesity, unspecified; D50.9 Iron deficiency anemia, unspecified; E83.39 Other disorders of phosphorus metabolism; R19.7 Diarrhea, unspecified; Z88.1 Allergy status to other antibiotic agents; Z11.52 Encounter for screening for COVID-19; Z68.35 Body mass index [BMI] 35.0-35.9, adult; Z90.49 Acquired absence of other specified parts of digestive tract; Z87.891 Personal history of nicotine dependence
CPT/HCPCS: 36415; 71045; 71275; 80048; 80053; 80202; 81001; 82947; 83540; 83605; 83735; 83880; 84100; 84132; 84145; 84466; 84484; 85025; 85610; 85730; 86140; 86480; 86592; 86593; 86780; 87015; 87040; 87045; 87046; 87070; 87077; 87086; 87088; 87116; 87177; 87186; 87205; 87206; 87209; 87389; 87428; 87490; 87535; 87590; 93005; 94760; 96361; 96365; 96375; 99285; J0456; J0561; J0696; J1171; J2405; J2543; J3373; J3480; J3490; J7030; J7040; J7050; J7613; J7644; Q9967